=== PATIENT | male | born 1970 | race Two or more races ===

== ENCOUNTER 2024-03-25 16:17 | Emergency (ER) | payer BC, OTHER ==
[~2024-03-25] VITALS: Ht 177.8 cm; Wt 77.1 kg
--- NOTE | 2024-03-25 17:41 | DVH ---
EXAM: XY L KNEE 3V XRAY CLINICAL HISTORY: pain COMPARISON: None TECHNIQUE: XY L KNEE 3V XRAY Findings/Impression: 3 views of the left knee. There is no evidence of an acute fracture, dislocation, blastic, or lytic lesions. No radiopaque foreign bodies. No joint effusion or superficial soft tissue abnormalities.
--- NOTE | 2024-03-25 17:44 | DVH ---
CLINICAL INDICATION: pain TECHNIQUE: 3 views of the right knee XY R KNEE 3V XRAY Comparison: None FINDINGS/IMPRESSION: There is no evidence of acute fracture or dislocation. The joint spaces are preserved. Soft tissues are unremarkable. No significant joint effusion.
[2024-03-25] MEDS ORDERED: NAP500T PO (18:55)
[2024-03-25] MEDS ORDERED: METH4PAK PO (18:55)
--- NOTE | 2024-03-25 18:56 | ED.PDOC ---
Musculoskeletal HPI Comments 53-year-old male complaining of bilateral knee pain x2 weeks. States he has been getting worse over the last few days. Having a hard time walking. No trip no fall. No prior history of knee problems. Has not taken any medications. Nothing makes it better, nothing makes it worse. Chief Complaint: Lower Extremity Time Seen by MD: 16:50 Primary Care Provider: NONE Reviewed Notes: Nurses Notes Allergies: Coded Allergies: Penicillins (Verified Allergy, Unknown, 03/25/24) Information Source: Patient Mode of Arrival: Ambulatory Location: Bilateral Extremity Location: Knee Past Medical History PAST MEDICAL HISTORY: Denies Surgical History: Denies all surgeries Constitutional: denies: chills, diaphoresis, fatigue, fever, malaise, sweats, weakness, others EENTM: denies: blurred vision, double vision, ear bleeding, ear discharge, ear drainage, ear pain, ear ringing, eye pain, eye redness, hearing loss, mouth pain, mouth swelling, nasal discharge, nose bleeding, nose congestion, nose pain, photophobia, tearing, throat pain, throat swelling, voice changes, others Respiratory: denies: cough, hemoptysis, orthopnea, SOB at rest, shortness of breath, SOB with excertion, stridor, wheezing, others Cardiovascular: denies: chest pain, dizzy spells, diaphoresis, Dyspnea on exertion, edema, irregular heart beat, left arm pain, lightheadedness, palpitations, PND, syncope, others Gastrointestinal: denies: abdomen distended, abdominal pain, blood streaked bowels, constipated, diarrhea, dysphagia, difficulty swallowing, hematemesis, melena, nausea, poor appetite, poor fluid intake, rectal bleeding, rectal pain, vomiting, others Genitourinary: denies: burning, dysuria, flank pain, frequency, hematuria, incontinence, penile discharge, penile sore, pain, testicle pain, testicle swelling, urgency, others Neurological: denies: dizziness, fainting, headache, left sided numbness, left sided weakness, numbness, paresthesia, pre-existing deficit, right sided numbness, right sided weakness, seizure, speech problems, tingling, tremors, weakness, others Musculoskeletal: reports: joint pain (Bilateral knees); denies: back pain, gout, joint swelling, muscle pain, muscle stiffness, neck pain, others Integumetry: denies: bruises, change in color, change in hair/nails, dryness, laceration, lesions, lumps, rash, wounds, others Allergic/Immunocompromised: denies: Difficulty Healing, Frequent Infections, Hives, Itching, others Physical Exam General Appearance: No Apparent Distress, Normal HEENT: Normal ENT Inspection, Pharynx Normal, TMs Normal Neck: Full Range of Motion, Non-Tender, Normal, Normal Inspection Respiratory: Chest Non-Tender, Lungs Clear, No Accessory Muscle Use, No Respiratory Distress, Normal Breath Sounds Cardiovascular: No Edema, No JVD, No Murmur, No Gallop, Normal Peripheral Pulses, Regular Rate/Rhythm Breast Exam: Deferred Gastrointestinal: No Organomegaly, Non Tender, No Pulsatile Mass, Normal Bowel Sounds, Soft Genitalia: Deferred Pelvic: Deferred Rectal: Deferred Extremities: No calf tenderness, Normal capillary refill, Normal inspection, Normal range of motion, Non-tender, No pedal edema Musculoskeletal : Location: Bilateral Extremity Location: Knee (Bilateral anterior knees tender to palpation, mild swelling on bilateral knees. No crepitus noted. Negative varus negative valgus negative anterior drawer negative posterior drawer.) Apperance: Normal Neurologic: Alert, helper teacher II-XII nml as Tested, No Motor Deficits, Normal Affect, Normal Mood, No Sensory Deficits Cerebellar Function: Normal Reflexes: Normal Skin: Dry, Normal Color, Warm Lymphatic: No Adenopathy Was a procedure done? Was a procedure done?: No Differential Diagnosis EXT Differential Diagnosis: Compartment Syndrome, Fracture, Sprain, Dislocation X-Ray, Labs, Meds, VS Vital Signs Date Time Temp Pulse Resp B/P (MAP) Pulse Ox O2 Delivery O2 Flow Rate FiO2 03/25/24 16:45 98.1 67 20 142/83 (102) 97 X-Ray, Labs, Meds, VS Comment Imaging: X-rays and CT scans were reviewed and interpreted by this provider, imaging shows no fractures and no pathological disease. Pending radiology review. Laboratory: Labs reviewed and interpreted by this provider. No significant abnormalities noted. Patient has prior medical visits reviewed. Med reconciliation performed Vital signs reviewed Time of 1ST Reevaluation: 18:56 Reevaluation 1ST: Improved Patient Education/Counseling: Diagnosis, Treatment, Need For Follow Up (Patient advised to follow-up in the emergency room in the next 24 to 48 hours if symptoms do not improve. Advised follow-up with PCP in the next 3 to 5 days. Patient verbalized understanding. ) Family Education/Counseling: No Family Present Departure 1 Departure Time of Disposition: 18:52 Impression: Primary Impression: Arthralgia Qualified Codes: M25.561 - Pain in right knee; M25.562 - Pain in left knee Disposition: 01 HOME / SELF CARE / HOMELESS Condition: Fair e-Prescriptions Methylprednisolone (Medrol Dosepak) 4 Mg Rmoan 4 MG PO UD, #21 TAB UAD Prov: DEVENDRA VNAESSA 03/25/24 Naproxen (NAPROSYN TABLET) 500 Mg Tb 1 TAB PO BID, #60 TAB Prov: DEVENDRA VANESSA 03/25/24 Discharged With: Self Critical Care Note Critical Care Time?: No Stability Stability form required: No Heart Score Heart Score: Heart Score Response (Comments) Value History N/A 0 EKG N/A 0 Age N/A 0 Risk Factors N/A 0 Troponin N/A 0 Total 0 DEVENDRA VANESSA Mar 25, 2024 18:56
[2024-03-25 19:30] VITALS: PULSE 128; RESP 16; O2SAT 92
[2024-03-25 19:35] VITALS: BP 144/97; PULSE 128; RESP 20; TEMP 97.9; O2SAT 96
[2024-03-25] MEDS: methylPREDNISolone SOD SUCC 125 MG/2 ML VL IM ONE (19:42)
[2024-03-25] MEDS: KETOROLAC TROMETH 30 MG/ML 1ML VIAL IM ONE (19:42)
== END 2024-03-25 19:50 | disposition home or self-care (01) ==
LOC: ER 16:17
DX: M25.562 Pain in left knee (principal); M25.561 Pain in right knee; Z88.0 Allergy status to penicillin
CPT/HCPCS: 73562; 96372; 99284; J1885; J2919

== ENCOUNTER 2024-04-08 15:58 | Inpatient (IN) | payer BC ==
[~2024-04-08] VITALS: Ht 177.8 cm; Wt 75.7 kg
[~2024-04-08 15:58] MED LIST: METH4PAK PO; NAP500T PO
--- NOTE | 2024-04-08 16:39 | ED.PDOC ---
History of Present Illness HPI Comments Nathan Lindsey is a 53-year-old male patient who presents to ED with chief complaint of generalized weakness associated with loss of appetite, altered gait, nausea, vomiting clear liquid and unintentional weight loss of 3 lb in the past two weeks. Patient also reports presyncopal episode with head trauma two days ago. Denies palpitation, chest pain, dyspnea, diarrhea, constipation, dysphagia, bleeding, dysuria, sick contacts and motor or sensory deficits. Past medical history: Anxiety, recent ER visit due to inflamed knee treated with methylprednisolone and diclofenac. Surgical history: Denies Family history: Unknown (patient is adopted) Social history: Lives in [place] with . Is a current smoker (20 pack- year history of smoking). Denies alcohol and other drug abuse Allergies: Penicillin Home medication: Anxiety medication (does not recall any, has not been taking it for two weeks). Methylprednisolone and diclofenac Chief Complaint: General Weakness Time Seen by MD: 16:05 Primary Care Provider: NONE Allergies: Coded Allergies: Penicillins (Verified Allergy, Unknown, 03/25/24) Home Meds Active Scripts Methylprednisolone (Medrol Dosepak) 4 Mg Roman, 4 MG PO UD, #21 TAB UAD Prov:DEVENDRA VANESSA CANE WEIGHER 03/25/24 Naproxen (NAPROSYN TABLET) 500 Mg Tb, 1 TAB PO BID, #60 TAB Prov:DEVENDRA VANESSAP 03/25/24 Mode of Arrival: Ambulatory Past Medical History PAST MEDICAL HISTORY: Denies Surgical History: Denies all surgeries Physical Exam General Appearance: No Apparent Distress, Thin HEENT: Normal ENT Inspection, Pharynx Normal, TMs Normal Neck: Full Range of Motion, Non-Tender, Normal, Normal Inspection Respiratory: Chest Non-Tender, Lungs Clear, No Accessory Muscle Use, No Respiratory Distress, Normal Breath Sounds Cardiovascular: No Edema, No JVD, No Murmur, No Gallop, Normal Peripheral Pulses, Regular Rate/Rhythm Breast Exam: Deferred Gastrointestinal: No Organomegaly, Non Tender, No Pulsatile Mass, Normal Bowel Sounds, Soft, Other (Abdominal hernia in epigastrium area) Genitalia: Deferred Pelvic: Deferred Rectal: Deferred Extremities: No calf tenderness, Normal capillary refill, Normal inspection, Normal range of motion, Non-tender, No pedal edema Neurologic: Abnormal Gait, Alert, crystalizer operator II-XII nml as Tested, No Motor Deficits, Normal Affect, Normal Mood, No Sensory Deficits Cerebellar Function: Normal Reflexes: Normal Skin: Bruises, Dry, Normal Color, Warm, Wounds Lymphatic: No Adenopathy Was a procedure done? Was a procedure done?: No Differential Dx Considerations may include: Electrolyte disbalance, sepsis, UTI, Lung cancer, gastric cancer, hypothyroidism, congestive heart failure, atrial fibrillation. X-Ray, Labs, Meds, VS Vital Signs Date Time Temp Pulse Resp B/P (MAP) Pulse Ox O2 Delivery O2 Flow Rate FiO2 04/08/24 16:16 97.1 62 18 142/96 (111) 98 Lab Test 04/08/24 16:55 04/08/24 16:13 Range/Units White Blood Count 12.9 H 4.4-10.8 10^3/uL Red Blood Count 4.28 L 4.5-5.90 10^6/uL Hemoglobin 15.0 13.5-17.5 g/dL Hematocrit 43.1 41.0-53.0 % Mean Corpuscular Volume 100.6 H 80.0-100.0 fL Mean Corpuscular Hemoglobin 35.0 H 28.0-32.0 pg Mean Corpuscular Hemoglobin Concent 34.8 32.0-36.0 g/dL Red Cell Distribution Width 14.2 11.8-14.3 % Platelet Count 134 L 140-450 10^3/uL Mean Platelet Volume 9.1 6.9-10.8 fL Neutrophils (%) (Auto) 86.4 H 37.0-80.0 % Lymphocytes (%) (Auto) 6.4 L 10.0-50.0 % Monocytes (%) (Auto) 6.6 0.0-12.0 % Eosinophils (%) (Auto) 0.1 0.0-7.0 % Basophils (%) (Auto) 0.5 0.0-2.0 % Neutrophils # (Auto) 11.1 H 1.6-8.6 10 ^3/uL Lymphocytes # (Auto) 0.8 0.4-5.4 10 ^3/uL Monocytes # (Auto) 0.9 0-1.3 10 ^3/uL Eosinophils # (Auto) 0 0-0.8 10 ^3/uL Basophils # (Auto) 0.1 0-0.2 10 ^3/uL Nucleated Red Blood Cells 0.1 % Prothrombin Time 11.9 H 9.3-11.8 sec Prothrombin Time INR 1.14 0.9-1.15 Activated Partial Thromboplast Time 27.3 24.5-34.5 SEC Sodium Level 132 L 136-145 mmol/L Potassium Level 3.3 L 3.5-5.1 mmol/L Chloride Level 95 L 98-107 mmol/L Carbon Dioxide Level 26 20-31 mmol/L Anion Gap 11 5-15 Blood Urea Nitrogen 9 9-23 mg/dL Creatinine 0.69 L 0.700-1.30 mg/dL Glomerular Filtration Rate Calc 111 >90 mL/min BUN/Creatinine Ratio 13.0 10.0-20.0 Serum Glucose 133 H 74-106 mg/dL Calcium Level 9.2 8.7-10.4 mg/dL Magnesium Level 1.7 1.6-2.6 mg/dL Total Bilirubin 3.3 H 0.2-1.0 mg/dL Aspartate Amino Transferase (AST) 266 H 13-40 U/L Alanine Aminotransferase (ALT) 46 H 7-40 U/L Alkaline Phosphatase 265 H 46-116 U/L Total Protein 7.0 5.7-8.2 g/dL Albumin 4.0 3.2-4.8 g/dL Thyroid Stimulating Hormone (TSH) 5.27 H 0.55-4.78 uIU/mL POC Glucose 139 H 70-106 mg/dl X-Ray, Labs, Meds, VS Comment Obtain laboratory results, presents leukocytosis, mild thrombocytopenia, hyponatremia, hypokalemia, transaminitis. Head CT and chest x-ray within normal limits. EKG pending. Time of 1ST Reevaluation: 17:55 Reevaluation 1ST: Unchanged Patient Education/Counseling: Diagnosis, Treatment, Prognosis Family Education/Counseling: Diagnosis, Treatment, Prognosis Departure 1 Departure Time of Disposition: 17:55 Impression: Primary Impression: Sepsis Additional Impression: Arthralgia Disposition: 30 STILL A PATIENT Condition: Serious Additional Instructions: Reviewed vital signs, laboratory results, head CT and chest x-ray (pending EKG). Patient has probable sepsis, probable site from knee joint versus hepatic. Have ordered blood, urine, and eventual synovial culture. Patient is hemodynamically stable, presents with generalized weakness, unintentional weight loss and loss of appetite, had recent presyncope. Patient has laboratory compatible with sepsis, he will need to be admitted for further workup. Have ordered cultures, initiated IV antibiotic. Critical Care Note Critical Care Time?: No Stability Stability form required: No Heart Score Heart Score: Heart Score Response (Comments) Value History N/A 0 EKG N/A 0 Age N/A 0 Risk Factors N/A 0 Troponin N/A 0 Total 0 JORDYN CHILDERS RESIDENT Apr 08, 2024 16:39
--- NOTE | 2024-04-08 16:58 | DVH ---
EXAM: CT HEAD WITHOUT CONTRAST HISTORY: Head trauma COMPARISON: None TECHNIQUE: Axial images of the head were obtained and reformatted in coronal and sagittal planes. All CT scans at this medical facility are performed using dose modulation techniques as appropriate t o a performed exam including the following: Automated exposure control was utilized; adjustment of th e MA and/or KV according to patient size; and use of iterative reconstruction technique. CT Dose: CTDI volume is 56.9 mGy. Dose-length product is 1121.41 mGy*cm FINDINGS: There is no evidence of acute intracranial hemorrhage, mass, mass effect midline shift. There is no h ydrocephalus or extra-axial fluid collection. Jimenez-white matter differentiation is maintained. There is mucosal thickening in the left maxillary sinus. The remaining visualized paranasal sinuses a nd mastoid air cells are clear. The calvarium is intact. IMPRESSION: 1. No acute intracranial process. HS:Y
--- NOTE | 2024-04-08 17:06 | DVH ---
EXAM: XY CHEST XRAY 1 VIEW TECHNIQUE: Single frontal chest radiograph CLINICAL HISTORY: Unintentional weight loss COMPARISON: None Findings/Impression: Frontal chest radiograph demonstrates no acute osseous or superficial soft tissue abnormalities. The trachea is midline. The cardiac silhouette and mediastinum are within normal limits. No pneumothorax, pleural effusions, or consolidations.
[2024-04-08 17:18] LABS: Eosinophils # (auto) 0 10 ^3/uL (0-0.8); Eosinophils % (auto) 0.1 % (0.0-7.0)
[2024-04-08 17:20] LABS: Basophils # (auto) 0.1 10 ^3/uL (0-0.2); Basophils % (auto) 0.5 % (0.0-2.0); Hematocrit 43.1 % (41.0-53.0); Lymphocytes # (auto) 0.8 10 ^3/uL (0.4-5.4); Lymphocytes % (auto) 6.4 % (10.0-50.0); Mean Corpuscular Hgb Conc. 34.8 g/dL (32.0-36.0); Mean Corpuscular Volume 100.6 fL (80.0-100.0); Monocytes # (auto) 0.9 10 ^3/uL (0-1.3); Monocytes % (auto) 6.6 % (0.0-12.0); Neutrophils # (auto) 11.1 10 ^3/uL (1.6-8.6); Neutrophils % (auto) 86.4 % (37.0-80.0); Nucleated Red Blood Cells % 0.1 %; Platelet Count (auto) 134 10^3/uL (140-450); Red Blood Cells 4.28 10^6/uL (4.5-5.90); Red Cell Distribution Width 14.2 % (11.8-14.3); White Blood Cell 12.9 10^3/uL (4.4-10.8)
[2024-04-08 17:30] LABS: Anion Gap 11 (5-15); Calcium 9.2 mg/dL (8.7-10.4); Carbon Dioxide 26 mmol/L (20-31); Magnesium 1.7 mg/dL (1.6-2.6)
[2024-04-08 17:33] LABS: Alanine Aminotransferase 46 U/L (7-40); Alkaline Phosphatase 265 U/L (46-116); Aspartate Aminotransferase 266 U/L (13-40); Bilirubin, Total 3.3 mg/dL (0.2-1.0); Blood Urea Nitrogen 9 mg/dL (9-23); Chloride 95 mmol/L (98-107); Glucose 133 mg/dL (74-106); INR 1.14 (0.9-1.15); Partial Thromboplastin Time 27.3 SEC (24.5-34.5); Potassium 3.3 mmol/L (3.5-5.1); Prothrombin Time 11.9 sec (9.3-11.8); Sodium 132 mmol/L (136-145)
[2024-04-08] MEDS ORDERED: VANCOMYCIN PER PHARMACY 0 MG IV SCH ×2 (18:15→22:30)
[2024-04-08] MEDS ORDERED: cefTRIAXone 1GM/50ML D5W 50 ML IV ONE (18:15)
--- NOTE | 2024-04-08 18:22 | DVH ---
EXAM: US Abdomen Limited, Right Upper Quadrant CLINICAL INDICATION: Transminitis TECHNIQUE: Real-time ultrasound of the right upper quadrant with image documentation. COMPARISON: None FINDINGS: LIVER: The liver measures up to 20.2 CM. Fatty liver. No intrahepatic bile duct dilation. GALLBLADDER: Gallbladder sludge. Negative Martin's sign was reported by the explosion welder. No gallst ones. COMMON BILE DUCT: Unremarkable as visualized. No stones. No dilation. PANCREAS: Unremarkable as visualized. RIGHT KIDNEY: CBD not visualized. Next time right kidney measures up to 11 .1 cm. No stones. OTHER FINDINGS: . . IMPRESSION: Gallbladder sludge without convincing evidence of acute cholecystitis. HS:Y
[2024-04-08 18:42] LABS: Free T3 2.77 pg/mL (2.3-4.2); Free T4 (Free Thyroxine) 1.02 ng/dL (0.89-1.76)
[2024-04-08] MEDS: POTASSIUM EFFERVESENT TAB 25 MEQ PO ONE (18:51)
[2024-04-08] MEDS: SODIUM CHLORIDE 0.9% 2,250 ML IV ONE (18:59)
[2024-04-08] MEDS: VANCOMYCIN 1.25GM/250ML 250 ML IV SCH (19:32)
[2024-04-08] MEDS: levoFLOXacin 500 MG TAB PO SCH (19:32)
[2024-04-08 19:37] LABS: Lactic Acid w/Reflex 5.1 mmol/L (0.4-2.0)
[2024-04-08] MEDS: ONDANSETRON HCL 4 MG/2 ML VIAL IV ONE (19:57)
[2024-04-08] MEDS: SODIUM CHLORIDE 0.9% 1,000 ML IV ONE ×2 (21:40→22:30)
[2024-04-08] MEDS: MAGNESIUM OXIDE 400 MG TAB PO ONE (22:30)
--- NOTE | 2024-04-08 22:53 | DVHHPRES ---
History of Present Illness Resident Creating Document: SHARYN REN RESIDENT History of Present Illness Patient is a 53-year-old male with no significant past medical history who came in due to generalized weakness. According to the patient, he has been experiencing shaking chills, severe loss of appetite and severe generalized w eakness for the past 2 weeks. Patient notes that he feels like he has no energy left at all and sustained a fall 2 days ago where he hit his head. Patient moved to [place] 8 months ago. He had 3 episodes of vomiting, no blood, vomitus containing food particles. On review of systems patient is complaining of fatigue, nausea, vomiting. And also notes weight loss in the last 4-6 weeks. Per patient, last alcoholic drink was on Saturday04/05/2024. White cell count was noted 12.9, lactic acid 5.1 Past Medical History Denies Past Surgical History Denies Past Social History Smoking, smokes 10 cigarettes per day for the last 30 years Alcohol: Drinks alcohol on the weekends only, 2-3 drinks. Denies using any drugs. Review of Systems Constitutional: Yes: Chills, Weakness, Malaise; No: Fever, Sweats, Other Eyes: No: Pain, Vision change, Conjunctivae inflammation, Eyelid inflammation, Other, Redness ENT: No: Ear pain, Ear discharge, Nose pain, Nose discharge, Nose congestion, Mouth pain, Mouth swelling, Throat pain, Throat swelling, Other Respiratory: No: Cough, Dry, Shortness of breath, SOB with excertion, Wheezing, Hemoptysis, Pleuritic Pain, Sputum, Wheezing, Other Cardiovascular: No: Chest Pain, Palpitations, Orthopnea, Paroxysmal Noc. Dyspnea, Edema, Lt Headedness, Other Gastrointestinal: Nausea, Vomiting; No: Abdominal Pain, Diarrhea, Constipation, Melena, Hematochezia, Other Genitourinary: No Dysuria, No Frequency, No Incontinence, No Hematuria, No Retention, No Other Musculoskeletal: No: other, neck pain, shoulder pain, arm pain, back pain, hand pain, leg pain, foot pain Skin: No: Rash, Lesions, Jaundice, Bruising, Other Neurological: No: Weakness, Numbness, Incoordination, Change in speech, Confusion, Seizures, Other Allergies: Coded Allergies: Penicillins (Verified Allergy, Unknown, 03/25/24) Medications Current Medications Medications Dose Ordered Sig/Riccardo Route Start Time Stop Time Status Last Admin Dose Admin Vancomycin HCl 0 ml @ 0 mls/hr UD IV 04/08/24 18:15 Levofloxacin 500 mg Q24H PO 04/08/24 19:00 04/08/24 19:32 500 MG Vancomycin HCl 250 ml @ 200 mls/hr Q8H IV 04/08/24 19:00 04/08/24 19:32 200 MLS/HR Vancomycin HCl 0 ml @ 0 mls/hr UD IV 04/08/24 22:30 UNV Piperacillin Sod/ Tazobactam Sod 100 ml @ 25 mls/hr Q8HR IV 04/09/24 06:00 UNV Exam Vital Signs Vital Signs Date Time Temp Pulse Resp B/P (MAP) Pulse Ox O2 Delivery O2 Flow Rate FiO2 04/08/24 21:59 116 04/08/24 20:03 18 150/100 (117) 97 04/08/24 18:48 97.4 97.4 04/08/24 18:48 Room Air General Appearance: Alert, Oriented X3, Cooperative, moderate distress HEENT: Atraumatic, PERRLA, EOMI Respiratory: Clear to auscultation, Normal air movement Cardiovascular: Regular rate, Normal S1, Normal S2 Abdominal: Normal bowel sounds (Abdominal tenderness to palpation) Extremities: No clubbing, No cyanosis, No edema Skin: No rashes, No breakdown Neuro: Normal speech, Other (Resting tremors noted in bilateral upper extremities) Psych/Mental Status: Mental status NL, Mood NL Labs/Xrays Labs Test 04/08/24 20:52 04/08/24 16:55 04/08/24 16:13 Range/Units Lactic Acid Level 5.9 *H 0.4-2.0 mmol/L White Blood Count 12.9 H 4.4-10.8 10^3/uL Red Blood Count 4.28 L 4.5-5.90 10^6/uL Hemoglobin 15.0 13.5-17.5 g/dL Hematocrit 43.1 41.0-53.0 % Mean Corpuscular Volume 100.6 H 80.0-100.0 fL Mean Corpuscular Hemoglobin 35.0 H 28.0-32.0 pg Mean Corpuscular Hemoglobin Concent 34.8 32.0-36.0 g/dL Red Cell Distribution Width 14.2 11.8-14.3 % Platelet Count 134 L 140-450 10^3/uL Mean Platelet Volume 9.1 6.9-10.8 fL Neutrophils (%) (Auto) 86.4 H 37.0-80.0 % Lymphocytes (%) (Auto) 6.4 L 10.0-50.0 % Monocytes (%) (Auto) 6.6 0.0-12.0 % Eosinophils (%) (Auto) 0.1 0.0-7.0 % Basophils (%) (Auto) 0.5 0.0-2.0 % Neutrophils # (Auto) 11.1 H 1.6-8.6 10 ^3/uL Lymphocytes # (Auto) 0.8 0.4-5.4 10 ^3/uL Monocytes # (Auto) 0.9 0-1.3 10 ^3/uL Eosinophils # (Auto) 0 0-0.8 10 ^3/uL Basophils # (Auto) 0.1 0-0.2 10 ^3/uL Nucleated Red Blood Cells 0.1 % Prothrombin Time 11.9 H 9.3-11.8 sec Prothrombin Time INR 1.14 0.9-1.15 Activated Partial Thromboplast Time 27.3 24.5-34.5 SEC Sodium Level 132 L 136-145 mmol/L Potassium Level 3.3 L 3.5-5.1 mmol/L Chloride Level 95 L 98-107 mmol/L Carbon Dioxide Level 26 20-31 mmol/L Anion Gap 11 5-15 Blood Urea Nitrogen 9 9-23 mg/dL Creatinine 0.69 L 0.700-1.30 mg/dL Glomerular Filtration Rate Calc 111 >90 mL/min BUN/Creatinine Ratio 13.0 10.0-20.0 Serum Glucose 133 H 74-106 mg/dL Calcium Level 9.2 8.7-10.4 mg/dL Magnesium Level 1.7 1.6-2.6 mg/dL Total Bilirubin 3.3 H 0.2-1.0 mg/dL Aspartate Amino Transferase (AST) 266 H 13-40 U/L Alanine Aminotransferase (ALT) 46 H 7-40 U/L Alkaline Phosphatase 265 H 46-116 U/L Total Protein 7.0 5.7-8.2 g/dL Albumin 4.0 3.2-4.8 g/dL Thyroid Stimulating Hormone (TSH) 5.27 H 0.55-4.78 uIU/mL Free Thyroxine (T4) Calculated 1.02 0.89-1.76 ng/dL Free Triiodothyronine (T3) pg/mL 2.77 2.3-4.2 pg/mL POC Glucose 139 H 70-106 mg/dl Assessment/Plan Assessment/Plan Generalized weakness s/p mechanical fall 2 days ago Lactic acidosis possible alcohol withdrawal? CIWA 11 - CXR: Frontal chest radiograph demonstrates no acute osseous or superficial soft tissue abnormalities. - Head CT: No acute intracranial process. - CT chest/abdomen/pelvis w oral and IV contrast: Gallbladder sludge without convincing evidence of acute cholecystitis. Moderate hepatomegaly with diffuse fatty infiltration of the liver. Moderate distention of the gallbladder without evidence of acute cholecystitis. Mild centrilobular emphysematous changes in the lungs with subtle fibrotic bands in the inferior lingular segment and right lower lobe. No acute infiltrates or effusions. Scattered diverticulosis of the sigmoid colon without evidence of diverticulit is. Omental fat-containing bilateral inguinal hernia, left more than right. Borderline prostatomegaly with parenchymal calcifications. Subtle atherosclerotic calcification of the abdominal aorta and common iliac arteries, with normal contrast opacification and no aneurysm or dissection. Degenerative disc disease at L5-S1 with vacuum disc phenomenon and moderate bilateral foraminal narrowing. - ordered CEA, CA19-9, lipase - IV vancomycin, IV zosyn - IV NS at 100cc/hr Transaminitis Hyperbilirubinemia - CT AP: Moderate hepatomegaly with diffuse fatty infiltration. - monitor Hypertensive urgency - IV labetalol 10mg once Hypokalemia - repleted Goals of care: Full code, discussed for >16 minutes on 04/08/2024 Plan discussed with patient Plan discussed with Dr. Feliciano Plan discussed with: Patient, Other (RN) My Orders Orders - SHARYN REN RESIDENT Procedure Category Date Status Time Admit ADMIT 04/08/24 Transmitted 22:26 Notify Of Changes JOSE 04/08/24 In Process From [facility] 22:26 Vancomycin Per PHA 04/08/24 Pending Pharmacy 22:30 Piperacillin-Tazob PHA 04/09/24 Logged 3.375gm (Zosyn 3.375g 06:00 Sodium Chloride 0.9% PHA 04/08/24 In Process 22:30 Complete Blood Count LAB 04/09/24 Verified 02:00 Comprehensive LAB 04/09/24 Verified Metabolic Panel 02:00 Urinalysis LAB 04/08/24 Logged 22:26 Carcinoembryonic LAB 04/08/24 Logged Antigen 22:26 Carbohydrate Antigen LAB 04/08/24 Logged 19-9 Lipase LAB 04/08/24 In Process 22:26 Ct Chest/Ab/Pl W Con- CT 04/08/24 Logged Iv Only 22:26 Date of Service: Apr 08, 2024 Billing Provider: HERMINIA FELICIANO MD Common Visit Codes: [id number] INP/OBS CARE (HIGH) SHARYN REN RESIDENT Apr 08, 2024 22:53 HERMINIA FELICIANO MD Apr 09, 2024 11:41
[2024-04-08] MEDS: GASTROGRAFIN 30 ML SOL ONE (23:12)
[2024-04-08] MEDS: LABETALOL HCL 20 MG/4 ML VL IV ONE (23:15)
[2024-04-08] MEDS: METOCLOPRAMIDE HCL 10 MG TAB PO ONE (23:16)
[2024-04-08] MEDS: METOCLOPRAMIDE HCL 5MG/ml INJ 2ml VIAL IV ONE (23:30)
[2024-04-08 23:45] VITALS: PULSE 113; RESP 19; O2SAT 98
[2024-04-09] MEDS: IOHEXOL 300 MG/ML 100ML BOTTLE IJ ONE (01:32)
--- NOTE | 2024-04-09 03:42 | DVH ---
Examination: CAPIV CLINICAL INDICATION: abdominal pain, weakness, weight loss. COMPARISON: None. CONTRAST USED: Intravenous. TECHNIQUE: Post-contrast CT study of the chest, abdomen, and pelvis was performed with 5 mm thin sli chase. Multiplanar reconstructions were obtained. The CT scan was performed using ALARA principles (A s Low As Reasonably Achievable). FINDINGS: CT Chest: Thyroid Gland and Lower Neck: Appears unremarkable. Cardiac and Great Vessels: Normal cardiac size. No pericardial effusion. Normal contrast opacification of the thoracic aorta. No aneurysmal dilatation or dissection. Lungs and Pleura: Mild centrilobular emphysematous changes in the lung parenchyma. Subtle linear fibrotic band in the inferior lingular segment and posterobasal segment of the right lo wer lobe. No acute infiltrates or effusion. No lung nodules, pleural effusion, or pneumothorax. Mediastinum and Great Vessels: Trachea and mainstem bronchi appear normal. No significant mediastinal lymphadenopathy. No masses or vascular abnormalities. Chest Wall and Osseous Structures: No acute abnormalities. Degenerative changes in the thoracic spine, acromioclavicular, and glenohumeral joints. No focal osseous lesions. CT Abdomen: Liver: Moderate hepatomegaly with diffuse fatty infiltration. Gallbladder and Biliary System: Moderate distention of the gallbladder. No radiopaque calculus or gallbladder wall thickening to suggest cholecystitis. Common bile duct is not dilated. Pancreas: Appears unremarkable. Spleen: Normal in size and echotexture. No focal lesions. Adrenal Glands and Retroperitoneum: Both adrenal glands are normal in size and morphology. No significant retroperitoneal lymphadenopathy. Kidneys and Urinary System: No renal calculi or hydronephrosis. Bowel Loops: Contrast-filled small and large bowel loops are identified. Scattered diverticulosis of the sigmoid colon without evidence of diverticulitis. No bowel obstruction, ascites, or abnormal masses. Vessels: Subtle atherosclerotic calcification of the abdominal aorta and common iliac arteries. Normal contrast opacification of the abdominal aorta and visceral arteries. No evidence of aneurysmal dilatation or dissection. CT Pelvis: Appendix: Appears unremarkable. Colon: No significant abnormalities. Urinary Bladder: Appears unremarkable. Prostate and Seminal Vesicles: Borderline prostatomegaly with foci of parenchymal calcifications. Seminal vesicles appear unremarkable. Hernias: Omental fat-containing bilateral inguinal hernia, left more than right. Lymph Nodes and Soft Tissues: No significant pelvic lymphadenopathy. No abnormal fluid collection. Skeletal System: Degenerative reduction in disc space at L5-S1 with vacuum disc phenomenon and disc osteophyte complex bulge. Moderate narrowing of the bilateral neural foramina. IMPRESSION: 1. Moderate hepatomegaly with diffuse fatty infiltration of the liver. 2. Moderate distention of the gallbladder without evidence of acute cholecystitis. 3. Mild centrilobular emphysematous changes in the lungs with subtle fibrotic bands in the inferior lingular segment and right lower lobe. No acute infiltrates or effusions. 4. Scattered diverticulosis of the sigmoid colon without evidence of diverticulitis. 5. Omental fat-containing bilateral inguinal hernia, left more than right. 6. Borderline prostatomegaly with parenchymal calcifications. 7. Subtle atherosclerotic calcification of the abdominal aorta and common iliac arteries, with [place] l contrast opacification and no aneurysm or dissection. 8. Degenerative disc disease at L5-S1 with vacuum disc phenomenon and moderate bilateral foraminal n arrowing. Electronically Signed 04/09/2024 03:41 [place] Gage
[2024-04-09] MEDS: PIPERACILLIN-TAZOB 3.375GM 100 ML IV SCH (06:00)
--- NOTE | 2024-04-09 06:42 | ECG ---
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
[2024-04-09 07:14] LABS: Basophils # (auto) 0 10 ^3/uL (0-0.2); Eosinophils # (auto) 0 10 ^3/uL (0-0.8); Monocytes # (auto) 0.9 10 ^3/uL (0-1.3); Neutrophils # (auto) 11.8 10 ^3/uL (1.6-8.6); Platelet Count (auto) 86 10^3/uL (140-450); Red Blood Cells 3.78 10^6/uL (4.5-5.90)
[2024-04-09 07:16] LABS: Basophils % (auto) 0.4 % (0.0-2.0); Hematocrit 38.6 % (41.0-53.0); Hemoglobin 13.1 g/dL (13.5-17.5); Lymphocytes # (auto) 0.8 10 ^3/uL (0.4-5.4); Lymphocytes % (auto) 5.7 % (10.0-50.0); Mean Corpuscular Hemoglobin 34.7 pg (28.0-32.0); Mean Corpuscular Volume 101.9 fL (80.0-100.0); Monocytes % (auto) 6.4 % (0.0-12.0); Neutrophils % (auto) 87.5 % (37.0-80.0); White Blood Cell 13.5 10^3/uL (4.4-10.8)
[2024-04-09 07:32] LABS: Alanine Aminotransferase 38 U/L (7-40); Albumin 3.8 g/dL (3.2-4.8); Alkaline Phosphatase 229 U/L (46-116); Anion Gap 11 (5-15); Aspartate Aminotransferase 193 U/L (13-40); BUN/Creatinine Ratio 13.1 (10.0-20.0); Bilirubin, Total 4.3 mg/dL (0.2-1.0); Blood Urea Nitrogen 8 mg/dL (9-23); Calcium 8.9 mg/dL (8.7-10.4); Carbon Dioxide 26 mmol/L (20-31); Chloride 94 mmol/L (98-107); Glucose 114 mg/dL (74-106); Potassium 3.7 mmol/L (3.5-5.1); Sodium 131 mmol/L (136-145); Total Protein 6.8 g/dL (5.7-8.2)
[2024-04-09] MEDS ORDERED: cefTRIAXone 1GM/50ML D5W 50 ML IV SCH (09:00)
[2024-04-09] MEDS ORDERED: LORazepam MDV 2MG/ML 50 MG in SODIUM CHL 0.9% 25 ML IV SCH (09:00)
[2024-04-09] MEDS ORDERED: LORazepam 2MG/ML-1ML VIAL IV PRN (09:15)
[2024-04-09] MEDS: LABETALOL HCL 20 MG/4 ML VL IV ONE ×2 (09:30→10:38)
[2024-04-09] MEDS: ONDANSETRON HCL 4 MG/2 ML VIAL IV ONE (09:41)
[2024-04-09] MEDS: chlordiazePOXIDE HCL 25 MG CAP PO SCH (09:48)
[2024-04-09 09:49] LABS: Hepatitis A Ab IgM Negative; Hepatitis B Core IgM Negative (Negative); Hepatitis B Surface Antigen Negative (Negative); Hepatitis C Antibody Negative (Negative)
[2024-04-09] MEDS: LORazepam 2MG/ML-1ML VIAL IM ONE (09:53)
[2024-04-09] MEDS: LABETALOL HCL 5 MG/ML 4ML SYRINGE IV ONE (10:23)
[2024-04-09] MEDS: LORazepam 2MG/ML-1ML VIAL IV PRN (17:41)
[2024-04-09] MEDS ORDERED: FOLIC ACID 1 MG, MULTIPLE VITAMIN 10 ML, MAGNESIUM SULF SDV 50% 8 MEQ, THIAMINE INJ 100... INJ SCH (18:00)
[2024-04-09 19:30] VITALS: PULSE 117; RESP 19; O2SAT 95
--- NOTE | 2024-04-09 19:52 | DVHPNRES ---
Progress Note Date Seen: Apr 09, 2024 Resident Creating Document: BERTRAM CONTEH RESIDENT Has the PT tested + for MRSA If YES, has PT been informed?: No Medical Necessity Reason Pt with a Central, PICC or Fol: No Medical Necessity Reason Alcohol withdrawal Dizziness Anemia Subjective Review of Systems This is a 53-year-old male with history of alcohol abuse presented to the ED with a chief complaints of generalized weakness. According to the patient, he has been experiencing shaking chills, severe loss of appetite and severe generalized weakness for the past 2 weeks. Patient notes that he feels like he has no energy left at all and sustained a fall 2 days ago where he hit his head. He had 3 episodes of vomiting, no blood, mainly vomitus containing food particles. According the patient, he has been binge drinking for the past two weeks. Patient denied any recent travel out of the country, he is in monogamous relationship with his and he lives at home. Patient moved to [place] 8 months ago. And also notes weight loss in the last 4-6 weeks. White cell count was noted 12.9, lactic acid 5.1 AST level was 266, ALT was 46. At the time of my visit, patient passed a black tarry stool but he didn not mention any evidence of hematemesis. He was very unsteady but alert and oriented. Chest x-ray, CT head were grossly unremarkable ultrasound of the gallbladder revealed gallbladder sludge without convincing evidence of acute cholecystitis. CT chest/abdomen/pelvis showed Moderate hepatomegaly with diffuse fatty infiltration of the liver.Moderate distention of the gallbladder without evidence of acute cholecystitis. Mild centrilobular emphysematous changes in the lungs with subtle fibrotic bands in the inferior lingular segment and right lower lobe.No acute infiltrates or effusions Scattered diverticulosis of the sigmoid colon without evidence of diverticulitis. Omental fat-containing bilateral inguinal hernia, left more than right Borderline prostatomegaly with parenchymal calcifications.Subtle atherosclerotic calcification of the abdominal aorta and common iliac arteries, with normal contrast opacification and no aneurysm or dissection. ROS Constitutional: Yes: Chills, Weakness, Malaise, fatigues and weight lost, Generalized tremors; No: Fever, Sweats, Eyes: No: Pain, Vision change, Conjunctivae inflammation, Eyelid inflammation, Other, Redness ENT: No: Ear pain, Ear discharge, Nose pain, Nose discharge, Nose congestion, Mouth pain, Mouth swelling, Throat pain, Throat swelling, Other Respiratory: No: Cough, Dry, Shortness of breath, SOB with excertion, Wheezing, Hemoptysis, Pleuritic Pain, Sputum, Wheezing, Other Cardiovascular: No: Chest Pain, Palpitations, Orthopnea, Paroxysmal Noc. Dyspnea, Edema, Lt Headedness, Other Gastrointestinal: Nausea, Vomiting; No: Abdominal Pain, Diarrhea, Constipation, Melena, Hematochezia, Other Genitourinary: No Dysuria, No Frequency, No Incontinence, No Hematuria, No Retention, No Other Musculoskeletal: No: other, neck pain, shoulder pain, arm pain, back pain, hand pain, leg pain, foot pain Skin: No: Rash, Lesions, Jaundice, Bruising, Other Neurological: No: Weakness, Numbness, Incoordination, Change in speech, Confusion, Seizures, Other Objective vital signs Vital Sign Date Time Temp Pulse Resp B/P (MAP) Pulse Ox O2 Delivery O2 Flow Rate FiO2 04/09/24 18:14 130 20 144/108 (120) 94 04/09/24 15:57 97.9 97.9 04/08/24 23:45 Room Air* 0 21 Total Intake and Output 04/08/24 04/08/24 04/09/24 15:00 23:00 07:00 Intake Total 2500 ml Balance 2500 ml medications Current Medications Medications Dose Ordered Sig/Riccardo Route Start Time Stop Time Status Last Admin Dose Admin Vancomycin HCl 0 ml @ 0 mls/hr UD IV 04/08/24 18:15 Chlordiazepoxide HCl 10 mg Q6HPRN PRN PO 04/09/24 09:15 Labetalol HCl 5 mg Q2HPRN PRN IV 04/09/24 09:30 Chlordiazepoxide HCl 50 mg Q8H PO 04/09/24 09:30 04/10/24 01:31 04/09/24 17:16 50 MG Chlordiazepoxide HCl 50 mg Q12HR PO 04/10/24 10:00 04/10/24 22:01 Chlordiazepoxide HCl 25 mg Q12HR PO 04/11/24 10:00 04/11/24 22:01 Chlordiazepoxide HCl 25 mg QAM PO 04/12/24 07:00 04/12/24 07:01 Lorazepam 1 mg Q4HP PRN IV 04/09/24 09:30 04/09/24 17:41 1 MG Folic Acid 1 mg/ Magnesium Sulfate 8 meq/ Multivitamins 10 ml/Thiamine HCl 100 mg/Sodium Chloride 1,013.2 ml @ 126.247 mls/hr DAILY@1800 INJ 04/09/24 18:00 Examination General Appearance: Alert, Oriented X3, Cooperative, moderate distress, Generalized tremors, unsteady gaits HEENT: Atraumatic, PERRLA, EOMI Respiratory: Clear to auscultation, Normal air movement Cardiovascular: Regular rate, Normal S1, Normal S2 Abdominal: able to swallow, Normal bowel sounds (Abdominal tenderness to palpation) Extremities: No clubbing, No cyanosis, No edema Skin: No rashes, No breakdown Neuro: Normal speech, Other (Resting tremors noted in bilateral upper extremities) Psych/Mental Status: Mental status NL, Mood NL laboratory and microbiology Laboratory Tests 04/09/24 06:06 Test 04/09/24 06:06 Range/Units Serum Glucose 114 H 74-106 mg/dL Microbiology Date/Time Source Procedure Growth Status 04/08/24 18:28 Blood Blood Culture - Preliminary NO GROWTH AFTER 24 HOURS OF INCUBATION. Resulted Problem List/Assessment/Plan Problem List/Assessment/Plan Assessment Alcohol withdrawal, CIWA score 11 Acute blood Anemia rule out GI Bleed Melena Macrocytic anemia Generalized weakness s/p mechanical fall 2 days ago Likely alcoholic Lactic acidosis Malnutrition Thrombocytopenia Hyponatremia Transaminitis Hyperbilirubinemia Hypertensive urgency Hypokalemia hepatomegaly with diffuse fatty infiltration of the liver. Scattered diverticulosis without evidence of diverticulitis. Omental fat-containing bilateral inguinal hernia, left more than right. Plan Continue Banana bag ( NS with multivatamins) and reassess in the AM Ativan 1mg q4hrs Chlordiazepoxide ( librium) protocol IV labetalol 5mg q2hrs prn Clonidine 0.1 bid prn Monitor and replace electrolytes Monitor stool and hgb, may consider GI consult if hgb continues to drop Code status : full code Goal of care discussed for more than 45 minute Case and plan discussed with Dr. Jackson Plan discussed with: Patient My Orders My Orders Orders - BERTRAM CONTEH RESIDENT Procedure Category Date Status Time Etoh Withdrawal JOSE 04/09/24 In Process Assessment 09:13 Etoh Withdrawal JOSE 04/09/24 In Process Assessment 09:13 Chlordiazepoxide Hcl PHA 04/09/24 In Process Capsule (Librium Ca 09:15 Labetalol Hcl PHA 04/09/24 In Process (Labetalol Hcl) 09:30 Chlordiazepoxide Hcl PHA 04/09/24 In Process Capsule (Librium Ca 09:30 Chlordiazepoxide Hcl PHA 04/10/24 In Process Capsule (Librium Ca 10:00 Chlordiazepoxide Hcl PHA 04/11/24 In Process Capsule (Librium Ca 10:00 Chlordiazepoxide Hcl PHA 04/12/24 In Process Capsule (Librium Ca 07:00 Lorazepam 2mg/Ml Inj PHA 04/09/24 In Process (Ativan Inj) 09:30 Urinalysis LAB 04/09/24 Logged 10:41 Drug Screen LAB 04/09/24 Logged 10:41 Folic Acid... PHA 04/09/24 In Process 18:00 Date of Service: Apr 09, 2024 Billing Provider: BRIEN JACKSON MD Common Visit Codes: [id number] INP/OBS CARE(HIGH) BERTRAM CONTEH RESIDENT Apr 09, 2024 19:52 BRIEN JACKSON MD Apr 09, 2024 21:25
[2024-04-09] MEDS: FOLIC ACID 1 MG, MAGNESIUM SULF SDV 50% 8 MEQ, MULTIPLE VITAMIN 10 ML, THIAMINE INJ 100... INJ SCH (20:02)
[2024-04-09 21:17] LABS: Basophils # (auto) 0.1 10 ^3/uL (0-0.2); Eosinophils # (auto) 0 10 ^3/uL (0-0.8); Eosinophils % (auto) 0.1 % (0.0-7.0); Hematocrit 39.9 % (41.0-53.0)
[2024-04-09 21:19] LABS: Basophils % (auto) 0.5 % (0.0-2.0); Hemoglobin 13.6 g/dL (13.5-17.5); Lymphocytes # (auto) 1.3 10 ^3/uL (0.4-5.4); Lymphocytes % (auto) 10.1 % (10.0-50.0); Mean Corpuscular Hemoglobin 34.5 pg (28.0-32.0); Mean Corpuscular Volume 101.6 fL (80.0-100.0); Monocytes # (auto) 1.1 10 ^3/uL (0-1.3); Monocytes % (auto) 8.9 % (0.0-12.0); Neutrophils % (auto) 80.4 % (37.0-80.0); Nucleated Red Blood Cells % 0.2 %; Platelet Count (auto) 88 10^3/uL (140-450); Red Blood Cells 3.93 10^6/uL (4.5-5.90); Red Cell Distribution Width 13.6 % (11.8-14.3); White Blood Cell 12.4 10^3/uL (4.4-10.8)
[2024-04-09 21:36] LABS: Alanine Aminotransferase 33 U/L (7-40); Albumin 3.4 g/dL (3.2-4.8); Anion Gap 11 (5-15); BUN/Creatinine Ratio 17.2 (10.0-20.0); Blood Urea Nitrogen 11 mg/dL (9-23); Calcium 8.7 mg/dL (8.7-10.4); Carbon Dioxide 25 mmol/L (20-31); Lipase 43 U/L (12-53)
[2024-04-09 21:37] LABS: Total Protein 6.2 g/dL (5.7-8.2)
[2024-04-09 21:42] LABS: Alkaline Phosphatase 201 U/L (46-116); Aspartate Aminotransferase 165 U/L (13-40); Bilirubin, Total 3.5 mg/dL (0.2-1.0); Chloride 98 mmol/L (98-107); Glucose 110 mg/dL (74-106); Potassium 2.9 mmol/L (3.5-5.1); Sodium 134 mmol/L (136-145)
[2024-04-10 02:16] LABS: Urine Bacteria None Seen /hpf (None Seen)
[2024-04-10 02:24] LABS: Urine Blood TRACE /uL (Negative); Urine Clarity Clear (Clear); Urine Color Dark-Yellow (Yellow); Urine Protein, UAD 1+ (Negative); Urine Squamous Epithelial Cell None Seen /hpf (<5); Urine Urobilinogen 8 mg/dL (Negative); Urine WBC 1 /hpf (0 - 3); Urine pH 6.5 (5.0-9.0)
[2024-04-10 02:41] LABS: Benzodiazephine Screen, Urine Pos (NEGATIVE); Opiate Scree,Urine Neg (NEGATIVE); Phencyclidine Screen, Urine Neg (NEGATIVE)
[2024-04-10 02:42] LABS: Cannabinoid Screen, Urine Neg (NEGATIVE)
[2024-04-10 03:41] LABS: Amphetamine Screen, Urine Neg (NEGATIVE); Barbiturate Scree,Urine Neg (NEGATIVE); Cocaine Screen, Urine Neg (NEGATIVE)
[2024-04-10] MEDS: POTASSIUM CHL 20MEQ/100ML 100 ML IV SCH (03:57)
[2024-04-10] MEDS: POTASSIUM EFFERVESENT TAB 25 MEQ PO ONE (04:21)
--- NOTE | 2024-04-10 07:02 | ECG ---
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
--- NOTE | 2024-04-10 07:20 | DVHPNRES ---
Progress Note Date Seen: Apr 10, 2024 Resident Creating Document: SOY DAS Has the PT tested + for MRSA If YES, has PT been informed?: No Medical Necessity Reason Pt with a Central, PICC or Fol: No Medical Necessity Reason Alcohol withdrawal CIWA score went up to 19 Currently on CIWA protocol, Librium protocol Subjective Review of Systems This is a 53-year-old male with history of alcohol abuse presented to the ED with a chief complaints of generalized weakness. According to the patient, he has been experiencing shaking chills, severe loss of appetite and severe generalized weakness for the past 2 weeks. Patient notes that he feels like he has no energy left at all and sustained a fall 2 days ago where he hit his head. He had 3 episodes of vomiting, no blood, mainly vomitus containing food particles. According the patient, he has been binge drinking for the past two weeks. Patient denied any recent travel out of the country, he is in monogamous relationship with his and he lives at home. Patient moved to [place] 8 months ago. And also notes weight loss in the last 4-6 weeks. White cell count was noted 12.9, lactic acid 5.1 AST level was 266, ALT was 46. At the time of my visit, patient passed a black tarry stool but he didn not mention any evidence of hematemesis. He was very unsteady but alert and oriented. Chest x-ray, CT head were grossly unremarkable ultrasound of the gallbladder revealed gallbladder sludge without convincing evidence of acute cholecystitis. CT chest/abdomen/pelvis showed Moderate hepatomegaly with diffuse fatty infiltration of the liver.Moderate distention of the gallbladder without evidence of acute cholecystitis. Mild centrilobular emphysematous changes in the lungs with subtle fibrotic bands in the inferior lingular segment and right lower lobe.No acute infiltrates or effusions Scattered diverticulosis of the sigmoid colon without evidence of diverticulitis. Omental fat-containing bilateral inguinal hernia, left more than right Borderline prostatomegaly with parenchymal calcifications.Subtle atherosclerotic calcification of the abdominal aorta and common iliac arteries, with normal contrast opacification and no aneurysm or dissection. PN: 04/10/2024 Patient is seen and examined this morning at bedside. He is alert oriented however his in [place] where he is hallucinating imagining family members with him or girlfriend and by the bedside. He has been question he is able to respond he is able to answer some questions but every now and then patient did into hallucination imagining what is not present. Overnight patient was noted to have tachycardic a low-potassium EKG was done which revealed sinus tachycardia on the EKG reading is showed QT prolongation of 527 however with irais calculation was 470. He is toxicology reports came back and patient was positive for fentanyl. Blood pressure is well under control at this moment and monitor. Patient's symptoms are likely due to alcohol withdrawal. Patient is also noted to have melena stool. Tumor marker CA19-9:126 H (0-35). GI is on the case and are considering MRCP. Chemistry improved today Objective vital signs Vital Sign Date Time Temp Pulse Resp B/P (MAP) Pulse Ox O2 Delivery O2 Flow Rate FiO2 04/10/24 06:44 139 22 115/82 (93) 95 04/09/24 19:32 Room Air* 0 21 04/09/24 19:00 98.9 98.9 Total Intake and Output 04/09/24 04/09/24 04/10/24 15:00 23:00 07:00 Intake Total 578.741 ml Output Total 300 ml Balance 278.741 ml medications Current Medications Medications Dose Ordered Sig/Riccardo Route Start Time Stop Time Status Last Admin Dose Admin Chlordiazepoxide HCl 10 mg Q6HPRN PRN PO 04/09/24 09:15 Labetalol HCl 5 mg Q2HPRN PRN IV 04/09/24 09:30 Chlordiazepoxide HCl 50 mg Q12HR PO 04/10/24 10:00 04/10/24 22:01 Chlordiazepoxide HCl 25 mg Q12HR PO 04/11/24 10:00 04/11/24 22:01 Chlordiazepoxide HCl 25 mg QAM PO 04/12/24 07:00 04/12/24 07:01 Lorazepam 1 mg Q4HP PRN IV 04/09/24 09:30 04/10/24 02:59 1 MG Folic Acid 1 mg/ Magnesium Sulfate 8 meq/ Multivitamins 10 ml/Thiamine HCl 100 mg/Sodium Chloride 1,013.2 ml @ 126.247 mls/hr DAILY@1800 INJ 04/09/24 18:00 04/09/24 20:02 126.247 MLS/HR Potassium Chloride 100 ml @ 50 mls/hr Q2H IV 04/10/24 03:45 04/10/24 07:44 04/10/24 05:53 50 MLS/HR Examination General Appearance: Alert, Oriented X3, Cooperative, moderate distress, G eneralized tremors ( improving),hallucinating HEENT: Atraumatic, PERRLA, EOMI Respiratory: Clear to auscultation, Normal air movement Cardiovascular: Regular rate, Normal S1, Normal S2 Abdominal: able to swallow, Normal bowel sounds (Abdominal tenderness to palpation) Extremities: No clubbing, No cyanosis, No edema Skin: No rashes, No breakdown, spot bleeding noted on his forehead and arm Neuro: Normal speech, Other (Resting tremors noted in bilateral upper extremities) Psych/Mental Status: Mental status NL, Mood NL laboratory and microbiology laboratory and microbiology Laboratory Tests 04/09/24 20:40 Test 04/09/24 20:40 Range/Units Serum Glucose 110 H 74-106 mg/dL Microbiology Date/Time Source Procedure Growth Status 04/08/24 18:28 Blood Blood Culture - Preliminary NO GROWTH AFTER 24 HOURS OF INCUBATION. Resulted Problem List/Assessment/Plan Problem List/Assessment/Plan Assessment Alcohol withdrawal, CIWA score 19 ( worsened today) Acute blood Anemia rule out GI Bleed Melena Macrocytic anemia Generalized weakness s/p mechanical fall 2 days ago Likely alcoholic Lactic acidosis Malnutrition Thrombocytopenia Hyponatremia Transaminitis Hyperbilirubinemia Hypertensive urgency Hypokalemia hepatomegaly with diffuse fatty infiltration of the liver. Scattered diverticulosis without evidence of diverticulitis. Omental fat-containing bilateral inguinal hernia, left more than right. Hypokalemia hyper ammonia Dehydration Depression Fentanyl abuse (UDS positive) Plan Continue Banana bag ( NS with multivitamins) daily Ativan 1mg q4hrs Chlordiazepoxide (librium) protocol IV labetalol 5mg q2hrs prn Clonidine 0.1 bid prn Monitor and replace electrolytes Monitor stool and hgb stable Maintenance fluid GI following Code status: full code Goal of care discussed for more than 35 minute Case and plan discussed with Dr. Horton Plan discussed with: Patient My Orders My Orders Orders - BERTRAM CONTEH RESIDENT Procedure Category Date Status Time Etoh Withdrawal JOSE 04/09/24 In Process Assessment 09:13 Etoh Withdrawal JOSE 04/09/24 In Process Assessment 09:13 Chlordiazepoxide Hcl PHA 04/09/24 In Process Capsule (Librium Ca 09:15 Labetalol Hcl PHA 04/09/24 In Process (Labetalol Hcl) 09:30 Chlordiazepoxide Hcl PHA 04/10/24 In Process Capsule (Librium Ca 10:00 Chlordiazepoxide Hcl PHA 04/11/24 In Process Capsule (Librium Ca 10:00 Chlordiazepoxide Hcl PHA 04/12/24 In Process Capsule (Librium Ca 07:00 Lorazepam 2mg/Ml Inj PHA 04/09/24 In Process (Ativan Inj) 09:30 Folic Acid... PHA 04/09/24 In Process 18:00 Complete Blood Count LAB 04/10/24 Logged 04:00 Comprehensive LAB 04/10/24 Logged Metabolic Panel 04:00 Date of Service: Apr 10, 2024 Billing Provider: DEMI HORTON MD Common Visit Codes: [id number] INP/OBS CARE(HIGH) BERTRAM CONTEH RESIDENT Apr 10, 2024 07:20 DEMI HORTON MD Apr 10, 2024 18:23
[2024-04-10 07:24] LABS: Basophils # (auto) 0 10 ^3/uL (0-0.2); Basophils % (auto) 0.3 % (0.0-2.0); Eosinophils # (auto) 0.1 10 ^3/uL (0-0.8); Eosinophils % (auto) 0.4 % (0.0-7.0); Hematocrit 38.4 % (41.0-53.0); Hemoglobin 13.2 g/dL (13.5-17.5); Lymphocytes # (auto) 1.4 10 ^3/uL (0.4-5.4); Lymphocytes % (auto) 10.6 % (10.0-50.0); Mean Corpuscular Hgb Conc. 34.4 g/dL (32.0-36.0); Mean Corpuscular Volume 101.7 fL (80.0-100.0); Monocytes # (auto) 1.2 10 ^3/uL (0-1.3); Monocytes % (auto) 9.2 % (0.0-12.0); Neutrophils # (auto) 10.2 10 ^3/uL (1.6-8.6); Neutrophils % (auto) 79.5 % (37.0-80.0); Nucleated Red Blood Cells % 0.2 %; Platelet Count (auto) 93 10^3/uL (140-450); Red Blood Cells 3.77 10^6/uL (4.5-5.90); Red Cell Distribution Width 13.8 % (11.8-14.3); White Blood Cell 12.8 10^3/uL (4.4-10.8)
[2024-04-10 07:30] VITALS: PULSE 130; RESP 23; O2SAT 97
[2024-04-10 07:49] LABS: Alanine Aminotransferase 32 U/L (7-40); Anion Gap 12 (5-15); BUN/Creatinine Ratio 18.5 (10.0-20.0); Blood Urea Nitrogen 12 mg/dL (9-23); Carbon Dioxide 23 mmol/L (20-31); Chloride 101 mmol/L (98-107); Glucose 91 mg/dL (74-106); Potassium 3.5 mmol/L (3.5-5.1); Sodium 136 mmol/L (136-145)
[2024-04-10 07:50] LABS: Albumin 3.5 g/dL (3.2-4.8); Total Protein 6.1 g/dL (5.7-8.2)
[2024-04-10 07:52] LABS: Alkaline Phosphatase 211 U/L (46-116); Aspartate Aminotransferase 214 U/L (13-40); Bilirubin, Total 3.9 mg/dL (0.2-1.0); Calcium 8.6 mg/dL (8.7-10.4)
[2024-04-10] MEDS: chlordiazePOXIDE HCL 25 MG CAP PO SCH (10:40)
[2024-04-10] MEDS: SODIUM CHLORIDE 0.9% 1,000 ML IV SCH (12:30)
[2024-04-10] MEDS ORDERED: ONDANSETRON HCL 4 MG/2 ML VIAL IV PRN (12:30)
--- NOTE | 2024-04-10 13:43 | DVHCONRES ---
Date Seen: Apr 10, 2024 Resident Creating Document: BRANDO DUQUE RESIDENT Referring Physician Dr. Horton Reason for Consultation elevated tumor marker History of Present Illness Mr. Lindsey, a 53-year-old male with a history of alcohol abuse presented with generalized weakness, shaking chills, severe loss of appetite, and vomiting after binge drinking for two weeks. He sustained a fall, resulting in a head injury, and reported weight loss over the past 4-6 weeks. His CIWA score increased to 19, and he is currently on CIWA and Librium protocols. Examination revealed hepatomegaly, gallbladder sludge, mild emphysematous changes in the lungs, and other findings. He experienced hallucinations, tachycardia, and low potassium levels, with an EKG showing QT prolongation. Toxicology was positive for fentanyl. His symptoms are likely due to alcohol withdrawal, and GI was consulted with elevated CA-19-9 , CEA and black tarrry stool, considering MRCP for further evaluation. Social history remarkable with about 30 pack year smoking and alcohol abuse. Prior to admission patient lived home with family and functioned independently and PCP is Dr. Burrows. Past Medical History Denies Past Surgical History Denies Social History Social history remarkable with about 30 pack year smoking and alcohol abuse. Prior to admission patient lived home with family and functioned independently and PCP is Dr. Burrows. Allergies: Coded Allergies: Penicillins (Verified Allergy, Unknown, 03/25/24) Home Meds Active Scripts Methylprednisolone (Medrol Dosepak) 4 Mg Roman, 4 MG PO UD, #21 TAB UAD Prov:DEVENDRA VANESSA BARGE MASTER 03/25/24 Naproxen (NAPROSYN TABLET) 500 Mg Tb, 1 TAB PO BID, #60 TAB Prov:DEVENDRA VANESSA BARGE MASTER 03/25/24 Current Medications Current Medications Medications (Trade) Dose Ordered Sig/Riccardo Route PRN Reason Start Time Stop Time Status Last Admin Folic Acid 1 mg/ Multivitamins 10 ml/Magnesium Sulfate 8 meq/ Thiamine HCl 100 mg/Dextrose 1,013.2 ml @ 125.001 mls/hr DAILY@1800 INJ 04/09/24 18:00 04/09/24 11:37 DC Chlordiazepoxide HCl (Librium Capsule) 50 mg Q12HR PO 04/10/24 10:00 04/10/24 22:01 04/10/24 10:40 Chlordiazepoxide HCl (Librium Capsule) 25 mg Q12HR PO 04/11/24 10:00 04/11/24 22:01 Chlordiazepoxide HCl (Librium Capsule) 25 mg QAM PO 04/12/24 07:00 04/12/24 07:01 Folic Acid 1 mg/ Magnesium Sulfate 8 meq/ Multivitamins 10 ml/Thiamine HCl 100 mg/Sodium Chloride 1,013.2 ml @ 126.247 mls/hr DAILY@1800 INJ 04/09/24 18:00 04/09/24 20:02 Potassium Chloride 100 ml @ 50 mls/hr Q2H IV 04/10/24 03:45 04/10/24 07:44 DC 04/10/24 05:53 Ondansetron HCl (Zofran) 4 mg Q4HPRN PRN IV NAUSEA / VOMITING 04/10/24 12:30 Pantoprazole Sodium (Protonix) 40 mg DAILY IV 04/11/24 10:00 Sodium Chloride 1,000 ml @ 100 mls/hr Q10H IV 04/10/24 12:30 Review of Systems CONSTITUTIONAL: Fever, night sweats, weight loss, Lymphadenopathy, ecchymoses, fatigue DERMATOLOGIC: Rash, New/growing/changing skin lesions: Negative HEENT: Vision change, eye pain, Rhinorrhea, sinus pain, epistaxis, dysphagia, odynophagia, globus sensation, Change in hearing, tinnitus, vertigo, otalgia, Dental problems, oral ulcers or lesions: : Negative ENDOCRINE: Weight change, heat or cold intolerance, tremor, insomnia, neck pain or swelling, Polyuria, polydipsia, polyphagia, Abnormal hair growth, change in nails: Negative CARDIOVASCULAR: Chest pain, palpitations, syncope, Edema, cyanosis, claudication, Orthopnea, paroxysmal nocturnal dyspnea: Negative PULMONARY: Shortness of breath, dyspnea with exertion, Cough, hemoptysis, wheezing, chest pain : Negative GI: Nausea, vomiting, diarrhea, melena, hematochezia, Change in appetite, abdominal pain, change in bowel habits or stools : Dysuria, frequency, urgency, Urinary incontinence, hematuria, foamy urine, nocturia, Change in libido, erectile dysfunction, Change in menses, dysmenorrhea, dyspaerunia, pelvic pain: : Negative MUSCULOSKELETAL: Joint swelling or pain, muscle pain, back pain: : Negative NEUROLOGIC: Headache, scotoma, Change in smell or taste, change in facial muscles, Muscle weakness, paresthesias, anesthesia, Ataxia, change in speech: Negative PSYCHIATRIC: Depression, anxiety, hallucinations, mary carmen, suicidal/homicidal thoughts, Binging, purging: Negative Vital Signs Vital Signs Date Time Temp Pulse Resp B/P (MAP) Pulse Ox O2 Delivery O2 Flow Rate FiO2 04/10/24 12:12 97.9 119 17 135/83 (100) 97 97.9 04/10/24 07:30 Room Air* 0 21 Physical Exam GENERAL APPEARANCE: Well developed, well nourished, alert and cooperative, and appears to be in no acute distress. HEENT: WNL NECK: Neck supple, non-tender without lymphadenopathy, masses or thyromegaly. CARDIAC: Normal S1 and S2. No S3, S4 or murmurs. Rhythm is regular. There is no peripheral edema, cyanosis or pallor. Extremities are warm and well perfused. Capillary refill is less than 2 seconds. No carotid bruits. LUNGS: Clear to auscultation and percussion without rales, rhonchi, wheezing or diminished breath sounds. ABDOMEN: Positive bowel sounds. Soft, nondistended, nontender. No guarding or rebound. No masses. Mild epigastric tenderness. MSK: WNL NEUROLOGICAL: CN II-XII intact. Strength and sensation symmetric and intact throughout. Reflexes 2+ throughout. Cerebellar testing normal. SKIN: Skin normal color, texture and turgor with no lesions or eruptions. PSYCHIATRIC: The mental examination revealed the patient was oriented to person, place, and time. The patient was able to demonstrate good judgement and reason, without hallucinations, abnormal affect or abnormal behaviors during the examination. Patient is not suicidal. Labs/Diagnostic Data Labs Test 04/10/24 13:07 04/10/24 06:41 04/10/24 02:07 04/09/24 20:40 Range/Units White Blood Count 12.8 H 4.4-10.8 10^3/uL Red Blood Count 3.77 L 4.5-5.90 10^6/uL Hemoglobin 13.2 L 13.5-17.5 g/dL Hematocrit 38.4 L 41.0-53.0 % Mean Corpuscular Volume 101.7 H 80.0-100.0 fL Mean Corpuscular Hemoglobin 35.0 H 28.0-32.0 pg Mean Corpuscular Hemoglobin Concent 34.4 32.0-36.0 g/dL Red Cell Distribution Width 13.8 11.8-14.3 % Platelet Count 93 L 140-450 10^3/uL Mean Platelet Volume 10.2 6.9-10.8 fL Neutrophils (%) (Auto) 79.5 37.0-80.0 % Lymphocytes (%) (Auto) 10.6 10.0-50.0 % Monocytes (%) (Auto) 9.2 0.0-12.0 % Eosinophils (%) (Auto) 0.4 0.0-7.0 % Basophils (%) (Auto) 0.3 0.0-2.0 % Neutrophils # (Auto) 10.2 H 1.6-8.6 10 ^3/uL Lymphocytes # (Auto) 1.4 0.4-5.4 10 ^3/uL Monocytes # (Auto) 1.2 0-1.3 10 ^3/uL Eosinophils # (Auto) 0.1 0-0.8 10 ^3/uL Basophils # (Auto) 0 0-0.2 10 ^3/uL Nucleated Red Blood Cells 0.2 % Sodium Level 136 136-145 mmol/L Potassium Level 3.5 3.5-5.1 mmol/L Chloride Level 101 98-107 mmol/L Carbon Dioxide Level 23 20-31 mmol/L Anion Gap 12 5-15 Blood Urea Nitrogen 12 9-23 mg/dL Creatinine 0.65 L 0.700-1.30 mg/dL Glomerular Filtration Rate Calc 113 >90 mL/min BUN/Creatinine Ratio 18.5 10.0-20.0 Serum Glucose 91 74-106 mg/dL Calcium Level 8.6 L 8.7-10.4 mg/dL Total Bilirubin 3.9 H 0.2-1.0 mg/dL Aspartate Amino Transferase (AST) 214 H 13-40 U/L Alanine Aminotransferase (ALT) 32 7-40 U/L Alkaline Phosphatase 211 H 46-116 U/L Total Protein 6.1 5.7-8.2 g/dL Albumin 3.5 3.2-4.8 g/dL Urine Color Dark-yellow Yellow Urine Clarity Clear Clear Urine pH 6.5 5.0-9.0 Urine Specific [place] 1.030 1.001-1.035 Urine Protein 1+ H Negative Urine Ketones 2+ H Negative Urine Blood Trace H Negative /uL Urine Nitrite Negative Negative Urine Bilirubin 1+ Negative Urine Urobilinogen 8 H Negative mg/dL Urine Leukocyte Esterase Negative Negative /uL Urine RBC 1 0 - 3 /hpf Urine WBC 1 0 - 3 /hpf Urine Squamous Epithelial Cells None seen <5 /hpf Urine Bacteria None seen None Seen /hpf Urine Glucose Normal Normal mg/dL Urine Opiates Screen Neg NEGATIVE Urine Fentanyl Screen Pos NEGATIVE Urine Barbiturates Screen Neg NEGATIVE Urine Phencyclidine Screen Neg NEGATIVE Urine Amphetamines Screen Neg NEGATIVE Urine Benzodiazepines Screen Pos NEGATIVE Urine Cocaine Screen Neg NEGATIVE Urine Cannabinoids Screen Neg NEGATIVE Lipase 43 12-53 U/L Test 04/09/24 18:06 04/09/24 06:06 04/08/24 23:27 04/08/24 20:52 Range/Units Vancomycin Level Trough < 3.0 L 5-10 ug/mL Hemoglobin A1c 5.7 <5.7 % A1C Creatine Kinase 180 H 46-171 U/L Carcinoembryonic Antigen 13.65 <=5.0 ng/mL CA 19-9 Antigen 126 H 0-35 U/mL HIV (1&2) Antibody Negative Negative Plasma/Serum Blood Alcohol 7.6 <10 mg/dL Lactic Acid Level 5.9 *H 0.4-2.0 mmol/L Test 04/08/24 16:55 04/08/24 16:13 Range/Units Prothrombin Time 11.9 H 9.3-11.8 sec Prothrombin Time INR 1.14 0.9-1.15 Activated Partial Thromboplast Time 27.3 24.5-34.5 SEC Magnesium Level 1.7 1.6-2.6 mg/dL Troponin I High Sensitivity 3 L </=54 ng/L Thyroid Stimulating Hormone (TSH) 5.27 H 0.55-4.78 uIU/mL Free Thyroxine (T4) Calculated 1.02 0.89-1.76 ng/dL Free Triiodothyronine (T3) pg/mL 2.77 2.3-4.2 pg/mL Hepatitis A IgM Antibody Negative Hepatitis B Surface Antigen Negative Negative Hepatitis B Core IgM Antibody Negative Negative Hepatitis C Antibody Negative Negative POC Glucose 139 H 70-106 mg/dl Microbiology Date/Time Source Procedure Growth Status 04/08/24 18:28 Blood Blood Culture - Preliminary NO GROWTH AFTER 24 HOURS OF INCUBATION. Resulted Assessment GI Assessment/impression: # likely upper GI bleed, FOBT positive epigastric pain with alcohol abuse # Alcoholic hepatitis # Gallbladder hydrops # Gallbladder sludge # hepatobiliary dilatation, alk-phos high, CK 180 # Moderate hepatomegaly with diffuse fatty liver. # Scattered diverticulosis of the sigmoid colon without evidence of diverticulitis. # Omental fat-containing bilateral inguinal hernia, nonincarcerated # mechanical fall 2 days ago likely due to alcohol intoxication # Transaminitis, typical to use to 1 pattern likely due to alcoholic hepatitis # Hyperbilirubinemia # CA 19-9, CEA significantly high but MRCP unremarkable. # alcohol withdrawal # lactic acidosis # Mild centrilobular emphysematous changes in the lungs # Borderline prostatomegaly with parenchymal calcifications. # atherosclerotic calcification of the abdominal aorta and common iliac arteries # Degenerative disc disease at L5-S1 with vacuum disc phenomenon and moderate bilateral foraminal narrowing. # Hypertensive urgency, improved # recurrent Hypokalemia # high chance of refeeding syndrome # Macrocytic anemia # Thrombocytopenia Plan/Recommendation GI Plan: # Labs: follow up blood culture, daily CBC with close following of platelets, CMP, check B12, folate, please check daily magnesium phosphate and potassium. # Medications: H&H stable pantoprazole 40 mg daily IV to continue. # Imaging: In-hospital imaging reviewed, pending MRCP hepatobiliary/duodenal obstruction/mass. # Plan procedure: We will consider EGD, screening colonoscopy pending as well, can be considered outpatient george. # Diet: Alcohol abstinence, mitral the most. Additionally please avoid NSAIDs, caffeine, spicy, highly acidic and caustic diets. # serial abdominal examination and outpatient follow up. Thank you so much for the opportunity to consult on your patient. GI team will follow the patient. In case of any questions or concerns please feel free to reach out. Case an action plan discussed with Dr. Ping Cazares. Complex care planning needed total 49 minutes of detailed discussion. The patient and caregiver team agreed to the plan. Plan discussed with: Patient, Other (Primary team, spouse/partner) BRANDO DUQUE RESIDENT Apr 10, 2024 13:43
[2024-04-10] MEDS: ONDANSETRON HCL 4 MG/2 ML VIAL IV ONE (14:20)
[2024-04-10] MEDS: PANTOPRAZOLE 40 MG/10 ML VIAL INJ IV ONE (14:27)
--- NOTE | 2024-04-10 15:19 | DVH ---
MRI Abdomen, MRCP without IV Contrast Exam Date: 04/10/2024 02:29 PM Comparison: None History: elevated liver tests; elevated CA !9-9 Technique: Multisequence multiplanar MRI images were obtained of the abomen. MRCP including 3D SPACE, Radial 3D slabs and SPACE 3D MIP images Findings: Liver: Left hepatic cyst measuring up to 12 mm. Spleen: Unremarkable. Pancreas: The pancreas is normal in appearance without focal lesions. Gallbladder and ducts: Gallbladder is distended. No cholelithiasis identified. The cystic duct, righ t and left hepatic ducts, common hepatic duct, and common bile ducts are unremarkable. The pancreat ic duct is within normal limits. Adrenal glands: Unremarkable. Kidneys: Normal enhancement without suspicious lesions or hydronephrosis. Visualized bowel: Grossly unremarkable. Vasculature: Unremarkable. Lymphadenopathy: No evidence for lymphadenopathy. Ascites: Absent. Musculoskeletal: Bone marrow signal is normal. IMPRESSION: 1. Gallbladder hydrops. No obstructing calculus identified. No significant intrahepatic or extrahepa tic biliary dilation. No definite pancreatic mass. Hepatic cyst. If concern persists consider furthe r evaluation with MRI of the abdomen with contrast. HS:Y.
[2024-04-10] MEDS: FOLIC ACID 1 MG TAB PO ONE (18:12)
[2024-04-10] MEDS: THIAMINE HCL 100 MG TAB PO ONE (18:13)
[2024-04-10] MEDS: MAGNESIUM OXIDE 400 MG TAB PO ONE (18:13)
[2024-04-10] MEDS: MULTIPLE VITAMIN TAB PO ONE (18:14)
[2024-04-10 20:12] VITALS: PULSE 109; RESP 21; O2SAT 100
[2024-04-10 22:59] VITALS: RESP 24
[2024-04-10] MEDS ORDERED: METH4PAK3 PO (23:11)
[2024-04-10] MEDS ORDERED: DICL75TA4 PO (23:11)
[2024-04-11] MEDS: chlordiazePOXIDE HCL 5 MG CAP PO PRN (04:50)
[2024-04-11] MEDS: LABETALOL HCL 20 MG/4 ML VL IV PRN (04:53)
[2024-04-11 05:00] VITALS: BP 153/94; PULSE 102; RESP 19; TEMP 97.7; O2SAT 98
[2024-04-11 08:00] VITALS: PULSE 127
[2024-04-11 09:00] VITALS: BP 128/82; PULSE 112; RESP 18; TEMP 100.1; O2SAT 97
[2024-04-11 09:28] LABS: Hematocrit 34.8 % (41.0-53.0); Hemoglobin 11.7 g/dL (13.5-17.5); Mean Corpuscular Hgb Conc. 33.7 g/dL (32.0-36.0)
[2024-04-11 09:31] LABS: Basophils # (auto) 0.1 10 ^3/uL (0-0.2); Basophils % (auto) 0.6 % (0.0-2.0); Eosinophils # (auto) 0.1 10 ^3/uL (0-0.8); Eosinophils % (auto) 0.8 % (0.0-7.0); Lymphocytes # (auto) 1.2 10 ^3/uL (0.4-5.4); Mean Corpuscular Hemoglobin 34.8 pg (28.0-32.0); Mean Corpuscular Volume 103.3 fL (80.0-100.0); Monocytes # (auto) 0.9 10 ^3/uL (0-1.3); Monocytes % (auto) 9.7 % (0.0-12.0); Neutrophils # (auto) 7.1 10 ^3/uL (1.6-8.6); Neutrophils % (auto) 75.9 % (37.0-80.0); Nucleated Red Blood Cells % 0.2 %; Platelet Count (auto) 98 10^3/uL (140-450); Red Blood Cells 3.36 10^6/uL (4.5-5.90); Red Cell Distribution Width 13.8 % (11.8-14.3); White Blood Cell 9.4 10^3/uL (4.4-10.8)
[2024-04-11 09:48] LABS: Alanine Aminotransferase 37 U/L (7-40); Albumin 3.4 g/dL (3.2-4.8); Anion Gap 12 (5-15); BUN/Creatinine Ratio 17.7 (10.0-20.0); Blood Urea Nitrogen 11 mg/dL (9-23); Carbon Dioxide 23 mmol/L (20-31); Chloride 105 mmol/L (98-107); Glucose 87 mg/dL (74-106); Sodium 140 mmol/L (136-145)
[2024-04-11 10:31] LABS: Alkaline Phosphatase 190 U/L (46-116); Aspartate Aminotransferase 174 U/L (13-40); Bilirubin, Total 2.7 mg/dL (0.2-1.0); Calcium 8.5 mg/dL (8.7-10.4); Potassium 2.9 mmol/L (3.5-5.1); Total Protein 5.7 g/dL (5.7-8.2)
[2024-04-11] MEDS: MULTIPLE VITAMIN TAB PO SCH (11:22)
[2024-04-11] MEDS: PANTOPRAZOLE 40 MG/10 ML VIAL INJ IV SCH (11:22)
[2024-04-11] MEDS: FOLIC ACID 1 MG TAB PO SCH (11:22)
[2024-04-11] MEDS: chlordiazePOXIDE HCL 25 MG CAP PO SCH (11:23)
[2024-04-11] MEDS: MAGNESIUM OXIDE 400 MG TAB PO SCH (11:23)
[2024-04-11] MEDS: THIAMINE HCL 100 MG TAB PO SCH (11:23)
[2024-04-11 13:00] VITALS: BP 137/97; PULSE 100; RESP 18; TEMP 97.6; O2SAT 98
--- NOTE | 2024-04-11 14:08 | PRN ---
Misceleneous Note Note Note April 11, 2024 subjective: Patient doing about the same. Patient is asleep family is at bedside Current Medications Medications (Trade) Dose Ordered Sig/Riccardo Route PRN Reason Start Time Stop Time Status Last Admin Chlordiazepoxide HCl (Librium Capsule) 25 mg Q12HR PO 04/11/24 10:00 04/11/24 22:01 04/11/24 11:23 Chlordiazepoxide HCl (Librium Capsule) 25 mg QAM PO 04/12/24 07:00 04/12/24 07:01 Folic Acid 1 mg DAILY PO 04/11/24 10:00 04/11/24 11:22 Magnesium Oxide (Mag-Ox Tablet) 400 mg DAILY PO 04/11/24 10:00 04/11/24 11:23 Multivitamins (Mvi Tab) 1 tab DAILY PO 04/11/24 10:00 04/11/24 11:22 Pantoprazole Sodium (Protonix) 40 mg DAILY IV 04/11/24 10:00 04/11/24 11:22 Thiamine HCl 100 mg DAILY PO 04/11/24 10:00 04/11/24 11:23 Vital Signs Date Time Temp Pulse Resp B/P (MAP) Pulse Ox O2 Delivery O2 Flow Rate FiO2 04/11/24 05:53 102 155/99 04/11/24 05:00 97.7 19 98 97.7 04/10/24 22:59 Nasal Cannula* 2 28 Vital Signs Date Time Temp Pulse Resp B/P (MAP) Pulse Ox O2 Delivery O2 Flow Rate FiO2 04/11/24 05:53 102 155/99 04/11/24 05:00 97.7 102 19 153/94 (113) 98 97.7 04/11/24 04:53 116 155/106 04/10/24 22:59 24 Nasal Cannula* 2 28 04/10/24 22:00 120 16 139/100 (113) 98 04/10/24 21:14 132 26 178/118 (138) 99 04/10/24 20:12 109 21 100 Nasal Cannula* 2 28 04/10/24 20:12 99.9 109 21 146/104 (118) 100 99.9 04/10/24 20:00 117 04/10/24 18:00 122 20 121/99 (106) 99 04/10/24 16:00 98.2 121 16 98.2 Lab Test 04/11/24 09:03 Range/Units White Blood Count 9.4 # 4.4-10.8 10^3/uL Red Blood Count 3.36 L 4.5-5.90 10^6/uL Hemoglobin 11.7 L 13.5-17.5 g/dL Hematocrit 34.8 L 41.0-53.0 % Mean Corpuscular Volume 103.3 H 80.0-100.0 fL Mean Corpuscular Hemoglobin 34.8 H 28.0-32.0 pg Mean Corpuscular Hemoglobin Concent 33.7 32.0-36.0 g/dL Red Cell Distribution Width 13.8 11.8-14.3 % Platelet Count 98 L 140-450 10^3/uL Mean Platelet Volume 9.5 6.9-10.8 fL Neutrophils (%) (Auto) 75.9 37.0-80.0 % Lymphocytes (%) (Auto) 13.0 10.0-50.0 % Monocytes (%) (Auto) 9.7 0.0-12.0 % Eosinophils (%) (Auto) 0.8 0.0-7.0 % Basophils (%) (Auto) 0.6 0.0-2.0 % Neutrophils # (Auto) 7.1 1.6-8.6 10 ^3/uL Lymphocytes # (Auto) 1.2 0.4-5.4 10 ^3/uL Monocytes # (Auto) 0.9 0-1.3 10 ^3/uL Eosinophils # (Auto) 0.1 0-0.8 10 ^3/uL Basophils # (Auto) 0.1 0-0.2 10 ^3/uL Nucleated Red Blood Cells 0.2 % Sodium Level 140 136-145 mmol/L Potassium Level 2.9 L 3.5-5.1 mmol/L Chloride Level 105 98-107 mmol/L Carbon Dioxide Level 23 20-31 mmol/L Anion Gap 12 5-15 Blood Urea Nitrogen 11 9-23 mg/dL Creatinine 0.62 L 0.700-1.30 mg/dL Glomerular Filtration Rate Calc 115 >90 mL/min BUN/Creatinine Ratio 17.7 10.0-20.0 Serum Glucose 87 74-106 mg/dL Calcium Level 8.5 L 8.7-10.4 mg/dL Total Bilirubin 2.7 H 0.2-1.0 mg/dL Aspartate Amino Transferase (AST) 174 H 13-40 U/L Alanine Aminotransferase (ALT) 37 7-40 U/L Alkaline Phosphatase 190 H 46-116 U/L Total Protein 5.7 5.7-8.2 g/dL Albumin 3.4 3.2-4.8 g/dL Current Medications Medications (Trade) Dose Ordered Sig/Riccardo Route Start Time Stop Time Status Last Admin Chlordiazepoxide HCl (Librium Capsule) 25 mg Q12HR PO 04/11/24 10:00 04/11/24 22:01 04/11/24 11:23 Pantoprazole Sodium (Protonix) 40 mg DAILY IV 04/11/24 10:00 04/11/24 11:22 Folic Acid 1 mg DAILY PO 04/11/24 10:00 04/11/24 11:22 Multivitamins (Mvi Tab) 1 tab DAILY PO 04/11/24 10:00 04/11/24 11:22 Magnesium Oxide (Mag-Ox Tablet) 400 mg DAILY PO 04/11/24 10:00 04/11/24 11:23 Thiamine HCl 100 mg DAILY PO 04/11/24 10:00 04/11/24 11:23 General: Asleep arousable no distress HEENT: Normocephalic atraumatic extraocular muscle intact pupils equal round react to light and accommodating no scleral icterus Regular rate and rhythm Soft nontender nondistended No clubbing Impression: # GI bleeding # transaminitis # ETOH hepatitis # ETOH withdrawal Recommendations: 1. Follow H&H 2. Continue current medications 3. Hold off on endoscopy at this time 4. Continue with medications for withdrawal precautions 5. Continue PPI 6. No indication for ERCP at this time 7. Consider follow-up for CA 19-9 is outpatient 8. We will follow KRISTIAN MIRANDA MD Apr 11, 2024 14:08
--- NOTE | 2024-04-11 14:21 | DVHPN2 ---
Subjective The patient is seen and examined at bedside. The patient is still very tremulous Reviewed: Care Plan, H&P, Labs, Medications, Previous Orders, Radiology Changes from previous H/P or p: No Changes Eyes: No Pain, No Vision change, No Conjunctivae inflammation, No Eyelid inflammation, No Other, No Redness ENT: No Ear pain, No Ear discharge, No Nose pain, No Nose discharge, No Nose congestion, No Mouth pain, No Mouth swelling, No Throat pain, No Throat swelling, No Other Cardiovascular: No Chest Pain, No Palpitations, No Orthopnea, No Paroxysmal Noc. Dyspnea, No Edema, No Lt Headedness, No Other Respiratory: No Cough, No Dry, No Shortness of breath, No SOB with excertion, No Wheezing, No Hemoptysis, No Pleuritic Pain, No Sputum, No Other Gastrointestinal: Nausea, Vomiting; No Abdominal Pain, No Diarrhea, No Constipation, No Melena, No Hematochezia, No Other Genitourinary: No Dysuria, No Frequency, No Incontinence, No Hematuria, No Retention, No Other Musculoskeletal: No other, No neck pain, No shoulder pain, No arm pain, No back pain, No hand pain, No leg pain, No foot pain Skin: No Rash, No Lesions, No Jaundice, No Bruising, No Other Objective Vitals Vital Signs Date Time Temp Pulse Resp B/P (MAP) Pulse Ox O2 Delivery O2 Flow Rate FiO2 04/11/24 08:00 Nasal Cannula* 2 28 04/11/24 05:53 102 155/99 04/11/24 05:00 97.7 19 98 97.7 Intake/Output Intake and Output 04/11/24 07:00 Intake Total 325 ml Output Total 600 ml Balance -275 ml Intake Oral 25 ml IV Total 300 ml Output Urine Total 600 ml General Appearance: Alert, mild distress HEENT: Atraumatic, PERRLA, EOMI, Mucous membr. moist/pink Neck: Supple Lungs: Clear to auscultation, Normal air movement Cardiovascular: Regular rate, Normal S1, Normal S2, No murmurs, Gallops, Rubs Abdomen: Normal bowel sounds, Soft, No tenderness Neuro: Cranial nerves 3-12 NL Psych/Mental Status: Mental status NL Medications Current Medications Medications Dose Ordered Sig/Riccardo Route Start Time Stop Time Status Last Admin Dose Admin Chlordiazepoxide HCl 10 mg Q6HPRN PRN PO 04/09/24 09:15 04/11/24 04:50 10 MG Labetalol HCl 5 mg Q2HPRN PRN IV 04/09/24 09:30 04/11/24 04:53 5 MG Chlordiazepoxide HCl 25 mg Q12HR PO 04/11/24 10:00 04/11/24 22:01 04/11/24 11:23 25 MG Chlordiazepoxide HCl 25 mg QAM PO 04/12/24 07:00 04/12/24 07:01 Lorazepam 1 mg Q4HP PRN IV 04/09/24 09:30 04/11/24 06:45 1 MG Ondansetron HCl 4 mg Q4HPRN PRN IV 04/10/24 12:30 Pantoprazole Sodium 40 mg DAILY IV 04/11/24 10:00 04/11/24 11:22 40 MG Sodium Chloride 1,000 ml @ 100 mls/hr Q10H IV 04/10/24 12:30 04/11/24 11:25 100 MLS/HR Folic Acid 1 mg DAILY PO 04/11/24 10:00 04/11/24 11:22 1 MG Multivitamins 1 tab DAILY PO 04/11/24 10:00 04/11/24 11:22 1 TAB Magnesium Oxide 400 mg DAILY PO 04/11/24 10:00 04/11/24 11:23 400 MG Thiamine HCl 100 mg DAILY PO 04/11/24 10:00 04/11/24 11:23 100 MG Laboratory Results Laboratory Tests 04/11/24 09:03 Chemistry Test 04/11/24 09:03 Albumin 3.4 g/dL (3.2-4.8) Calcium Level 8.5 mg/dL (8.7-10.4) L Total Protein 5.7 g/dL (5.7-8.2) LFT Test 04/11/24 09:03 Alanine Aminotransferase (ALT) 37 U/L (7-40) Alkaline Phosphatase 190 U/L (46-116) H Aspartate Amino Transferase (AST) 174 U/L (13-40) H Total Bilirubin 2.7 mg/dL (0.2-1.0) H Urinalysis Test 04/10/24 02:07 Urine Color Dark-yellow (Yellow) Urine Clarity Clear (Clear) Urine pH 6.5 (5.0-9.0) Urine Specific [place] 1.030 (1.001-1.035) Urine Protein 1+ (Negative) H Urine Ketones 2+ (Negative) H Urine Blood Trace /uL (Negative) H Urine Nitrite Negative (Negative) Urine Bilirubin 1+ (Negative) Urine Urobilinogen 8 mg/dL (Negative) H Urine Leukocyte Esterase Negative /uL (Negative) Urine RBC 1 /hpf (0 - 3) Urine WBC 1 /hpf (0 - 3) Urine Squamous Epithelial Cells None seen /hpf (<5) Urine Bacteria None seen /hpf (None Seen) Urine Glucose Normal mg/dL (Normal) Microbiology Microbiology Date/Time Source Procedure Growth Status 04/10/24 02:07 Voided Urine Urine Culture - Preliminary Resulted 04/08/24 18:28 Blood Blood Culture - Preliminary NO GROWTH AFTER 48 HOURS OF INCUBATION. Resulted Labs and/or images reviewed: Labs reviewed by me Assessment/Plan Assessment/Plan Alcohol withdrawal, CIWA score 19 ( worsened today) Acute blood Anemia rule out GI Bleed Melena Macrocytic anemia Generalized weakness s/p mechanical fall 2 days ago Likely alcoholic Lactic acidosis Malnutrition Thrombocytopenia Hyponatremia Transaminitis Hyperbilirubinemia Hypertensive urgency Hypokalemia hepatomegaly with diffuse fatty infiltration of the liver. Scattered diverticulosis without evidence of diverticulitis. Omental fat-containing bilateral inguinal hernia, left more than right. Hypokalemia hyper ammonia Dehydration Depression Fentanyl abuse (UDS positive) Plan Continuing current management Continue Banana bag ( NS with vitamin B1, folic acid, multivitamins) daily Ativan 1mg q4hrs Chlordiazepoxide (librium) protocol Continuing IV labetalol prn Clonidine 0.1 bid prn Monitor and replace electrolytes Monitor stool and hgb stable Maintenance fluid Waiting for GI specialist to see the patient Code status: full code This medical document was created using an electronic medical record system with [employer] direct computerized dictation system. Although this document has been carefully reviewed, there may still be some phonetic and typographical errors. These areas are purely typographical due to imperfections of the software programs, and do not reflect any compromise in the patient's medical care. Plan discussed with: Patient Date of Service: Apr 11, 2024 Billing Provider: BRIEN PENNY MD Common Visit Codes: [id number] INP/OBS CARE(HIGH) BRIEN PENNY MD Apr 11, 2024 14:21
[2024-04-11 20:00] VITALS: PULSE 107
[2024-04-11 21:00] VITALS: BP_SYST 102; BP_SYST 149; BP_DIAS 61; BP_DIAS 99; PULSE 116; RESP 17; TEMP 97.9; O2SAT 100
[2024-04-11] MEDS: LACTULOSE 20Gm/30ML SOLN PO SCH (21:21)
[2024-04-12] VITALS (7 sets, daily range): BP systolic 143–163; BP diastolic 76–114; PULSE 83–122; RESP 17–20; TEMP 97.7–99.9; O2SAT 96–99
[2024-04-12] MEDS: chlordiazePOXIDE HCL 25 MG CAP PO SCH (06:23)
--- NOTE | 2024-04-12 11:02 | DVH ---
CT HEAD WITHOUT CONTRAST INDICATION: Confusion COMPARISON: CT HEAD WITHOUT CONTRAST on DOS: 04/08/24 TECHNIQUE: CT of the head without intravenous contrast. RADIATION DOSE: CTDIvol: 55.76 mGy, DLP: 893.86 mGy*cm FINDINGS: There is no evidence of acute intracranial hemorrhage, extra-axial collection, mass effect, midline s hift, herniation or hydrocephalus. The casey-white differentiation is intact. Mild cerebral atrophy. The surrounding soft tissues and osseous structures are unremarkable. Mastoids are clear. Mucosal thi ckening in the left maxillary sinus. Otherwise trace scattered mucosal thickening in the paranasal s inuses. IMPRESSION: No evidence of acute intracranial abnormality.
[2024-04-12 12:10] LABS: Basophils # (auto) 0.1 10 ^3/uL (0-0.2); Basophils % (auto) 1.3 % (0.0-2.0); Eosinophils # (auto) 0.1 10 ^3/uL (0-0.8); Hematocrit 36.6 % (41.0-53.0); Hemoglobin 12.4 g/dL (13.5-17.5); Lymphocytes # (auto) 1.3 10 ^3/uL (0.4-5.4); Lymphocytes % (auto) 15.1 % (10.0-50.0); Mean Corpuscular Hemoglobin 34.7 pg (28.0-32.0); Mean Corpuscular Volume 102.1 fL (80.0-100.0); Monocytes # (auto) 0.7 10 ^3/uL (0-1.3); Monocytes % (auto) 8.7 % (0.0-12.0); Neutrophils # (auto) 6.3 10 ^3/uL (1.6-8.6); Neutrophils % (auto) 73.9 % (37.0-80.0); Nucleated Red Blood Cells % 0.1 %; Platelet Count (auto) 115 10^3/uL (140-450); Red Blood Cells 3.58 10^6/uL (4.5-5.90); Red Cell Distribution Width 14.2 % (11.8-14.3); White Blood Cell 8.5 10^3/uL (4.4-10.8)
[2024-04-12 12:26] LABS: Alanine Aminotransferase 37 U/L (7-40); Anion Gap 11 (5-15); Carbon Dioxide 25 mmol/L (20-31); Chloride 102 mmol/L (98-107); Glucose 98 mg/dL (74-106); Magnesium 1.8 mg/dL (1.6-2.6); Sodium 138 mmol/L (136-145)
[2024-04-12 12:27] LABS: Albumin 3.2 g/dL (3.2-4.8); Alkaline Phosphatase 201 U/L (46-116); Aspartate Aminotransferase 167 U/L (13-40); Bilirubin, Total 3.2 mg/dL (0.2-1.0); Blood Urea Nitrogen < 5 mg/dL (9-23); Calcium 8.5 mg/dL (8.7-10.4); Creatine Kinase IFCC 283 U/L (46-171); Potassium 2.6 mmol/L (3.5-5.1); Total Protein 5.7 g/dL (5.7-8.2)
[2024-04-12] MEDS: POTASSIUM CHL 20MEQ/100ML 100 ML IV SCH (12:38)
[2024-04-12] MEDS: cloNIDine HCL 0.1 MG TAB PO ONE (16:10)
--- NOTE | 2024-04-12 17:00 | DVHPNRES ---
Progress Note Date Seen: Apr 12, 2024 Resident Creating Document: BERTRAM CONTEH RESIDENT Has the PT tested + for MRSA If YES, has PT been informed?: No Medical Necessity Reason Pt with a Central, PICC or Fol: No Medical Necessity Reason Alcohol withdrawal Subjective Review of Systems This is a 53-year-old male with history of alcohol abuse presented to the ED with a chief complaints of generalized weakness. According to the patient, he has been experiencing shaking chills, severe loss of appetite and severe generalized weakness for the past 2 weeks. Patient notes that he feels like he has no energy left at all and sustained a fall 2 days ago where he hit his head. He had 3 episodes of vomiting, no blood, mainly vomitus containing food particles. According the patient, he has been binge drinking for the past two weeks. Patient denied any recent travel out of the country, he is in monogamous relationship with his and he lives at home. Patient moved to [place] 8 months ago. And also notes weight loss in the last 4-6 weeks. White cell count was noted 12.9, lactic acid 5.1 AST level was 266, ALT was 46. At the time of my visit, patient passed a black tarry stool but he didn not mention any evidence of hematemesis. He was very unsteady but alert and oriented. Chest x-ray, CT head were grossly unremarkable ultrasound of the gallbladder revealed gallbladder sludge without convincing evidence of acute cholecystitis. CT chest/abdomen/pelvis showed Moderate hepatomegaly with diffuse fatty infiltration of the liver.Moderate distention of the gallbladder without evidence of acute cholecystitis. Mild centrilobular emphysematous changes in the lungs with subtle fibrotic bands in the inferior lingular segment and right lower lobe.No acute infiltrates or effusions Scattered diverticulosis of the sigmoid colon without evidence of diverticulitis. Omental fat-containing bilateral inguinal hernia, left more than right Borderline prostatomegaly with parenchymal calcifications.Subtle atherosclerotic calcification of the abdominal aorta and common iliac arteries, with normal contrast opacification and no aneurysm or dissection. PN: 04/10/2024 Patient is seen and examined this morning at bedside. He is alert oriented however his in [place] where he is hallucinating imagining family members with him or girlfriend and by the bedside. He has been question he is able to respond he is able to answer some questions but every now and then patient did into hallucination imagining what is not present. Overnight patient was noted to have tachycardic a low-potassium EKG was done which revealed sinus tachycardia on the EKG reading is showed QT prolongation of 527 however with irais calculation was 470. He is toxicology reports came back and patient was positive for fentanyl. Blood pressure is well under control at this moment and monitor. Patient's symptoms are likely due to alcohol withdrawal. Patient is also noted to have melena stool. Tumor marker CA19-9:126 H (0-35). GI is on the case and are considering MRCP. Chemistry improved today PN: 04/12/2024: patient is seen and examined by the bedside. Patient was sleeping at the time of my visit. There was a sitter in the room with the patient who mentioned to me that the night nurse said the patient seemed a lot more confused yesterday than he did not on previous days. And according to the nurse, when his family is around patient is orient, but later he was acting very confused. He is currently on lactulose and also he is on the withdrawal protocol. Ammonia level 25. K:2.6. mag 1.8.A CT of the head today did not reveal any abnormalities no bleeding noted no herniations noted no abnormalities found. Patient is currently on IV hydration creatinine kinase 283 not to the point of rhabdomyolysis we will keep monitoring. Objective vital signs Vital Sign Date Time Temp Pulse Resp B/P (MAP) Pulse Ox O2 Delivery O2 Flow Rate FiO2 04/12/24 16:10 151/106 04/12/24 13:00 99.9 108 19 99 99.9 04/12/24 08:00 Nasal Cannula* 2 28 Total Intake and Output 04/11/24 04/11/24 04/12/24 15:00 23:00 07:00 Intake Total 900 ml 400 ml Output Total 400 ml 650 ml Balance 500 ml -250 ml medications Current Medications Medications Dose Ordered Sig/Riccardo Route Start Time Stop Time Status Last Admin Dose Admin Chlordiazepoxide HCl 10 mg Q6HPRN PRN PO 04/09/24 09:15 04/12/24 01:22 10 MG Labetalol HCl 5 mg Q2HPRN PRN IV 04/09/24 09:30 04/12/24 00:27 5 MG Lorazepam 1 mg Q4HP PRN IV 04/09/24 09:30 04/12/24 00:26 1 MG Ondansetron HCl 4 mg Q4HPRN PRN IV 04/10/24 12:30 Pantoprazole Sodium 40 mg DAILY IV 04/11/24 10:00 04/12/24 11:24 40 MG Sodium Chloride 1,000 ml @ 100 mls/hr Q10H IV 04/10/24 12:30 04/12/24 14:20 100 MLS/HR Folic Acid 1 mg DAILY PO 04/11/24 10:00 04/12/24 11:24 1 MG Multivitamins 1 tab DAILY PO 04/11/24 10:00 04/12/24 11:23 1 TAB Magnesium Oxide 400 mg DAILY PO 04/11/24 10:00 04/12/24 11:24 400 MG Thiamine HCl 100 mg DAILY PO 04/11/24 10:00 04/12/24 11:24 100 MG Lactulose 30 ml Q8HR PO 04/11/24 22:00 04/12/24 13:31 30 ML Folic Acid 1 mg/ Magnesium Sulfate 8 meq/ Multivitamins 10 ml/Thiamine HCl 100 mg/Sodium Chloride 1,013.2 ml @ 126.247 mls/hr DAILY@1800 INJ 04/12/24 18:00 Examination General Appearance: Altered, tremor improved, sleeping HEENT: Atraumatic, PERRLA, EOMI Respiratory: Clear to auscultation, Normal air movement Cardiovascular: Regular rate, Normal S1, Normal S2 Abdominal: able to swallow, Normal bowel sounds (Abdominal tenderness to palpation) Extremities: No clubbing, No cyanosis, No edema Skin: No rashes, No breakdown, spot bleeding noted on his forehead and arm Neuro: Normal speech, but altered Psych/Mental Status: Unable to assess laboratory and microbiology Laboratory Tests 04/12/24 11:48 Test 04/12/24 11:48 Range/Units Serum Glucose 98 74-106 mg/dL Microbiology Date/Time Source Procedure Growth Status 04/10/24 02:07 Voided Urine Urine Culture - Final Complete 04/08/24 18:28 Blood Blood Culture - Preliminary NO GROWTH AFTER 72 HOURS OF INCUBATION. Resulted Problem List/Assessment/Plan Problem List/Assessment/Plan Assessment Alcohol withdrawal, CIWA score 19 ( worsened today) Acute blood Anemia rule out GI Bleed Melena Macrocytic anemia Generalized weakness s/p mechanical fall 2 days ago Likely alcoholic Lactic acidosis Malnutrition Thrombocytopenia Hyponatremia Transaminitis Hyperbilirubinemia Hypertensive urgency Hypokalemia hepatomegaly with diffuse fatty infiltration of the liver. Scattered diverticulosis without evidence of diverticulitis. Omental fat-containing bilateral inguinal hernia, left more than right. Hypokalemia hyperammonia--> resolved Dehydration Depression Fentanyl abuse (UDS positive) Plan Continue Banana bag ( NS with multivitamins)stop after 3 days Ativan 1mg q4hrs Chlordiazepoxide (librium) protocol IV labetalol 5mg q2hrs prn Clonidine 0.1 bid prn Monitor and replace electrolytes Monitor stool and hgb stable Maintenance fluid GI following Code status: full code Goal of care discussed for more than 35 minute Case and plan discussed with Plan discussed with: Spouse My Orders My Orders Orders - BERTRAM CONTEH Procedure Category Date Status Time Sequential JOSE 04/12/24 In Process Compression Device 09:[address] 04/12/24 Resulted 10:10 Lactic Acid W/ Reflex LAB 04/13/24 Verified Order 04:00 Folic Acid... PHA 04/12/24 In Process 18:00 Date of Service: Apr 12, 2024 Billing Provider: MANJIT POTTER MD Common Visit Codes: [id number] INP/OBS CARE(HIGH) BERTRAM CONTEH RESIDENT Apr 12, 2024 17:00 MANJIT POTTER MD Apr 12, 2024 20:10
[2024-04-12] MEDS ORDERED: FOLIC ACID 1 MG, MAGNESIUM SULF SDV 50% 8 MEQ, MULTIPLE VITAMIN 10 ML, THIAMINE INJ 100... INJ SCH (18:00)
[2024-04-13] VITALS (8 sets, daily range): BP systolic 134–155; BP diastolic 80–102; PULSE 91–112; RESP 18–20; TEMP 97.8–98.9; O2SAT 93–98
[2024-04-13 08:15] LABS: Chloride 104 mmol/L (98-107); Sodium 138 mmol/L (136-145)
[2024-04-13 08:16] LABS: Anion Gap 8 (5-15); Carbon Dioxide 26 mmol/L (20-31)
[2024-04-13 08:17] LABS: Calcium 8.6 mg/dL (8.7-10.4); Potassium 2.9 mmol/L (3.5-5.1)
[2024-04-13 08:21] LABS: BUN/Creatinine Ratio 10.3 (10.0-20.0)
[2024-04-13 08:23] LABS: Blood Urea Nitrogen 6 mg/dL (9-23); Creatine Kinase IFCC 127 U/L (46-171); Glucose 113 mg/dL (74-106)
[2024-04-13] MEDS: LACTULOSE 20Gm/30ML SOLN PO SCH (08:44)
[2024-04-13] MEDS: ENOXAPARIN SOD 40 MG/0.4 ML SYRINGE SC SCH (09:26)
[2024-04-13] MEDS: POTASSIUM CHLORIDE 80 MEQ, LIDOCAINE 1% (LOCAL ANESTH.) 6 ML in SODIUM CHL 0.9% 500 ML IV ONE (10:15)
--- NOTE | 2024-04-13 10:23 | DVHPNRES ---
Progress Note Date Seen: Apr 13, 2024 Resident Creating Document: BERTRAM CONTEH RESIDENT Has the PT tested + for MRSA If YES, has PT been informed?: No Medical Necessity Reason Pt with a Central, PICC or Fol: No Medical Necessity Reason altered, in and out Subjective Review of Systems Review of Systems This is a 53-year-old male with history of alcohol abuse presented to the ED with a chief complaints of generalized weakness. According to the patient, he has been experiencing shaking chills, severe loss of appetite and severe generalized weakness for the past 2 weeks. Patient notes that he feels like he has no energy left at all and sustained a fall 2 days ago where he hit his head. He had 3 episodes of vomiting, no blood, mainly vomitus containing food particles. According the patient, he has been binge drinking for the past two weeks. Patient denied any recent travel out of the country, he is in monogamous relationship with his and he lives at home. Patient moved to [place] 8 months ago. And also notes weight loss in the last 4-6 weeks. White cell count was noted 12.9, lactic acid 5.1 AST level was 266, ALT was 46. At the time of my visit, patient passed a black tarry stool but he didn not mention any evidence of hematemesis. He was very unsteady but alert and oriented. Chest x-ray, CT head were grossly unremarkable ultrasound of the gallbladder revealed gallbladder sludge without convincing evidence of acute cholecystitis. CT chest/abdomen/pelvis showed Moderate hepatomegaly with diffuse fatty infiltration of the liver.Moderate distention of the gallbladder without evidence of acute cholecystitis. Mild centrilobular emphysematous changes in the lungs with subtle fibrotic bands in the inferior lingular segment and right lower lobe.No acute infiltrates or effusions Scattered diverticulosis of the sigmoid colon without evidence of diverticulitis. Omental fat-containing bilateral inguinal hernia, left more than right Borderline prostatomegaly with parenchymal calcifications.Subtle atherosclerotic calcification of the abdominal aorta and common iliac arteries, with normal contrast opacification and no aneurysm or dissection. PN: 04/10/2024 Patient is seen and examined this morning at bedside. He is alert oriented however his in [place] where he is hallucinating imagining family members with him or girlfriend and by the bedside. He has been question he is able to respond he is able to answer some questions but every now and then patient did into hallucination imagining what is not present. Overnight patient was noted to have tachycardic a low-potassium EKG was done which revealed sinus tachycardia on the EKG reading is showed QT prolongation of 527 however with irais calculation was 470. He is toxicology reports came back and patient was positive for fentanyl. Blood pressure is well under control at this moment and monitor. Patient's symptoms are likely due to alcohol withdrawal. Patient is also noted to have melena stool. Tumor marker CA19-9:126 H (0-35). GI is on the case and are considering MRCP. Chemistry improved today PN: 04/12/2024: patient is seen and examined by the bedside. Patient was sleeping at the time of my visit. There was a sitter in the room with the patient who mentioned to me that the night nurse said the patient seemed a lot more confused yesterday than he did not on previous days. And according to the nurse, when his family is around patient is orient, but later he was acting very confused. He is currently on lactulose and also he is on the withdrawal protocol. Ammonia level 25. K:2.6. mag 1.8.A CT of the head today did not reveal any abnormalities no bleeding noted no herniations noted no abnormalities found. Patient is currently on IV hydration creatinine kinase 283 not to the point of rhabdomyolysis we will keep monitoring. PN: 04/13/2024: patient is seen and examined by the bedside. He was wake,but thinks that he is home. He had to be oriented that he is in the hospital. He knows the name of his and children. There was a sitter in the room with the patient. No major events reported. Reduced dose of lactulose as Ammonia is 25. K:2.9. mag 1.8. A CT of the head today did not reveal any abnormalities no bleeding noted no herniations noted no abnormalities found. Patient is currently on IV hydration creatinine . He has a alvarenga's catheter. Urine is very concentrated,very orange in color. Objective vital signs Vital Sign Date Time Temp Pulse Resp B/P (MAP) Pulse Ox O2 Delivery O2 Flow Rate FiO2 04/13/24 09:37 97.9 107 18 134/98 (110) 97 97.9 04/12/24 20:00 Nasal Cannula* 2 28 Total Intake and Output 04/12/24 04/12/24 04/13/24 15:00 23:00 07:00 Intake Total 900 ml 775 ml 1300 ml Output Total 1100 ml 200 ml Balance 900 ml -325 ml 1100 ml medications Current Medications Medications Dose Ordered Sig/Riccardo Route Start Time Stop Time Status Last Admin Dose Admin Chlordiazepoxide HCl 10 mg Q6HPRN PRN PO 04/09/24 09:15 04/12/24 01:22 10 MG Labetalol HCl 5 mg Q2HPRN PRN IV 04/09/24 09:30 04/12/24 00:27 5 MG Lorazepam 1 mg Q4HP PRN IV 04/09/24 09:30 04/12/24 00:26 1 MG Ondansetron HCl 4 mg Q4HPRN PRN IV 04/10/24 12:30 Pantoprazole Sodium 40 mg DAILY IV 04/11/24 10:00 04/13/24 08:44 40 MG Sodium Chloride 1,000 ml @ 100 mls/hr Q10H IV 04/10/24 12:30 04/13/24 02:11 100 MLS/HR Folic Acid 1 mg DAILY PO 04/11/24 10:00 04/13/24 08:43 1 MG Multivitamins 1 tab DAILY PO 04/11/24 10:00 04/13/24 08:43 1 TAB Magnesium Oxide 400 mg DAILY PO 04/11/24 10:00 04/13/24 08:43 400 MG Thiamine HCl 100 mg DAILY PO 04/11/24 10:00 04/13/24 08:43 100 MG Lactulose 30 ml DAILY PO 04/13/24 10:00 04/13/24 08:44 30 ML Enoxaparin Sodium 40 mg DAILY SC 04/13/24 10:00 04/13/24 09:26 40 MG Examination General Appearance: Altered, tremor improved, sleeping HEENT: Atraumatic, PERRLA, EOMI Respiratory: Clear to auscultation, Normal air movement Cardiovascular: Regular rate, Normal S1, Normal S2 Abdominal: able to swallow, Normal bowel sounds (Abdominal tenderness to palpation) Extremities: No clubbing, No cyanosis, No edema Skin: No rashes, No breakdown, spot bleeding noted on his forehead and arm Neuro: Normal speech, but altered Psych/Mental Status: Unable to assess laboratory and microbiology laboratory and microbiology Laboratory Tests 04/13/24 06:21 04/12/24 11:48 Test 04/13/24 06:21 Range/Units Serum Glucose 113 H 74-106 mg/dL Microbiology Date/Time Source Procedure Growth Status 04/10/24 02:07 Voided Urine Urine Culture - Final Complete 04/08/24 18:28 Blood Blood Culture - Preliminary NO GROWTH AFTER 72 HOURS OF INCUBATION. Resulted Problem List/Assessment/Plan Problem List/Assessment/Plan Assessment Alcohol withdrawal, CIWA score 19 ( worsened today) Acute blood Anemia rule out GI Bleed Melena Macrocytic anemia Generalized weakness s/p mechanical fall 2 days ago Likely alcoholic Lactic acidosis Malnutrition Thrombocytopenia Hyponatremia Transaminitis Hyperbilirubinemia Hypertensive urgency Hypokalemia hepatomegaly with diffuse fatty infiltration of the liver. Scattered diverticulosis without evidence of diverticulitis. Omental fat-containing bilateral inguinal hernia, left more than right. Hypokalemia hyperammonia--> resolved Dehydration Depression Fentanyl abuse (UDS positive) Plan Continue Banana bag ( NS with multivitamins)stop after 3 days Decrease Ativan to .5mg daily 10 mg Chlordiazepoxide tid IV labetalol 5mg q2hrs prn Clonidine 0.1 bid prn Monitor and replace electrolytes Monitor stool and hgb stable Maintenance fluid GI following PT evaluation Code status: full code Goal of care discussed for more than 25 minute Case and plan discussed with Dr. Horton Plan discussed with: Other My Orders My Orders Orders - BERTRAM CONTEH Procedure Category Date Status Time Head Without Contrast CT 04/12/24 Resulted 10:10 Lactulose Oral PHA 04/13/24 In Process 10:00 Enoxaparin Sodium PHA 04/13/24 In Process (Lovenox) 10:00 Potassium Chloride PHA 04/13/24 Logged (Potassium Chloride). 10:15 Magnesium Sulfate PHA 04/13/24 Logged 1gm/100ml 10:15 Date of Service: Apr 13, 2024 Billing Provider: DEMI HORTON MD Common Visit Codes: [id number] INP/OBS CARE(HIGH) BERTRAM CONTEH Apr 13, 2024 10:23 DEMI HORTON MD Apr 13, 2024 22:07
[2024-04-13] MEDS: cloNIDine 0.1 mg/24hr 7 DAY PATCH TD ONE (10:30)
[2024-04-13] MEDS: MAGNESIUM SULFATE 1GM/100ML 100 ML IV ONE (11:47)
--- NOTE | 2024-04-13 18:45 | DVHPN2 ---
Progress Note Date Seen: Apr 13, 2024 Resident Creating Document: BRANDO DUQUE RESIDENT Has the PT tested + for MRSA If YES, has PT been informed?: No Medical Necessity Reason Pt with a Central, PICC or Fol: No Subjective Review of Systems Patient was seen at the bedside, comparatively better than last time patient was seen at bedside. Hemodynamically stable at this point. Patient reports: Feels better Objective vital signs Vital Sign Date Time Temp Pulse Resp B/P (MAP) Pulse Ox O2 Delivery O2 Flow Rate FiO2 04/13/24 17:00 97.8 96 19 145/98 (114) 93 97.8 04/13/24 08:00 Nasal Cannula* 2 28 Total Intake and Output 04/12/24 04/12/24 04/13/24 15:00 23:00 07:00 Intake Total 900 ml 775 ml 1300 ml Output Total 1100 ml 200 ml Balance 900 ml -325 ml 1100 ml medications Current Medications Medications Dose Ordered Sig/Riccardo Route Start Time Stop Time Status Last Admin Dose Admin Labetalol HCl 5 mg Q2HPRN PRN IV 04/09/24 09:30 04/12/24 00:27 5 MG Ondansetron HCl 4 mg Q4HPRN PRN IV 04/10/24 12:30 Pantoprazole Sodium 40 mg DAILY IV 04/11/24 10:00 04/13/24 08:44 40 MG Sodium Chloride 1,000 ml @ 100 mls/hr Q10H IV 04/10/24 12:30 04/13/24 02:11 100 MLS/HR Folic Acid 1 mg DAILY PO 04/11/24 10:00 04/13/24 08:43 1 MG Multivitamins 1 tab DAILY PO 04/11/24 10:00 04/13/24 08:43 1 TAB Magnesium Oxide 400 mg DAILY PO 04/11/24 10:00 04/13/24 08:43 400 MG Thiamine HCl 100 mg DAILY PO 04/11/24 10:00 04/13/24 08:43 100 MG Lactulose 30 ml DAILY PO 04/13/24 10:00 04/13/24 08:44 30 ML Enoxaparin Sodium 40 mg DAILY SC 04/13/24 10:00 04/13/24 09:26 40 MG Chlordiazepoxide HCl 10 mg TID PRN PO 04/13/24 15:45 Lorazepam 0.5 mg Q4HP PRN IV 04/13/24 15:45 Examination GENERAL APPEARANCE: Well developed, well nourished, alert and cooperative, and appears to be in no acute distress. Improved. HEENT: WNL NECK: Neck supple, non-tender without lymphadenopathy, masses or thyromegaly. CARDIAC: Normal S1 and S2. No S3, S4 or murmurs. Rhythm is regular. There is no peripheral edema, cyanosis or pallor. Extremities are warm and well perfused. Capillary refill is less than 2 seconds. No carotid bruits. LUNGS: Clear to auscultation and percussion without rales, rhonchi, wheezing or diminished breath sounds. ABDOMEN: Positive bowel sounds. Soft, nondistended, nontender. No guarding or rebound. No masses. Mild epigastric tenderness. MSK: WNL NEUROLOGICAL: CN II-XII intact. Strength and sensation symmetric and intact throughout. Reflexes 2+ throughout. Cerebellar testing normal. SKIN: Skin normal color, texture and turgor with no lesions or eruptions. PSYCHIATRIC: The mental examination revealed the patient was oriented to person, place, and time. The patient was able to demonstrate good judgement and reason, without hallucinations, abnormal affect or abnormal behaviors during the examination. Patient is not suicidal. laboratory and microbiology Laboratory Tests 04/13/24 06:21 04/12/24 11:48 Test 04/13/24 06:21 Range/Units Serum Glucose 113 H 74-106 mg/dL Microbiology Date/Time Source Procedure Growth Status 04/10/24 02:07 Voided Urine Urine Culture - Final Complete 04/08/24 18:28 Blood Blood Culture - Final NO GROWTH AFTER 5 DAYS OF INCUBATION. Complete Labs and/or images reviewed: Labs reviewed by me, Image(s) reviewed by me Problem List/Assessment/Plan Problem List/Assessment/Plan Reasons for consultation: elevated tumor marker Hospitalization Summary: Mr. Lindsey, a 53-year-old male with a history of alcohol abuse presented with generalized weakness, shaking chills, severe loss of appetite, and vomiting after binge drinking for two weeks. He sustained a fall, resulting in a head injury, and reported weight loss over the past 4-6 weeks. His CIWA score increased to 19, and he is currently on CIWA and Librium protocols. Examination revealed hepatomegaly, gallbladder sludge, mild emphysematous changes in the lungs, and other findings. He experienced hallucinations, tachycardia, and low potassium levels, with an EKG showing QT prolongation. Toxicology was positive for fentanyl. His symptoms are likely due to alcohol withdrawal, and GI was consulted with elevated CA-19-9 , CEA and black tarrry stool, considering MRCP for further evaluation. Social history remarkable with about 30 pack year smoking and alcohol abuse. Prior to admission patient lived home with family and functioned independently and PCP is Dr. Burrows. Since then blood culture negative, H&H stable, ammonia unremarkable, FOBT positive, HIV and hepatitis negative, INR WNL, BUN is trending down patient is stable to is to 1 AST to ALT. In-hospital MRCP unremarkable. GI Assessment/impression: # likely upper GI bleed, FOBT positive epigastric pain with alcohol abuse # Alcoholic hepatitis # Gallbladder hydrops # Gallbladder sludge # hepatobiliary dilatation, alk-phos high, CK 180 # Moderate hepatomegaly with diffuse fatty liver. # Scattered diverticulosis of the sigmoid colon without evidence of diverticulitis. # Omental fat-containing bilateral inguinal hernia, nonincarcerated # mechanical fall 2 days ago likely due to alcohol intoxication # Transaminitis, typical to use to 1 pattern likely due to alcoholic hepatitis # Hyperbilirubinemia # CA 19-9, CEA significantly high but MRCP unremarkable. - # alcohol withdrawal # lactic acidosis # Mild centrilobular emphysematous changes in the lungs # Borderline prostatomegaly with parenchymal calcifications. # atherosclerotic calcification of the abdominal aorta and common iliac arteries # Degenerative disc disease at L5-S1 with vacuum disc phenomenon and moderate bilateral foraminal narrowing. # Hypertensive urgency, improved # recurrent Hypokalemia # high chance of refeeding syndrome # Macrocytic anemia # Thrombocytopenia GI Plan: # Labs: Trend H&H, daily CMP, Outpatient repeat CA 19 9. # Medications: H&H stable pantoprazole 40 mg daily IV to continue. # Plan procedure: We will consider EGD, tomorrow keep the patient NPO overnight, screening colonoscopy pending as well, can be considered outpatient george. # Diet: Alcohol abstinence, is most important in this patient. Additionally please avoid NSAIDs, caffeine, spicy, highly acidic and caustic diets. # serial abdominal examination and outpatient follow up with Dr. Cazares. Outpatient repeat CA 19 9. Thank you so much for the opportunity to consult on your patient. GI team will follow the patient. In case of any questions or concerns please feel free to reach out. Case an action plan discussed with Dr. Ping Cazares. Complex care planning needed total 47 minutes of detailed discussion. The patient and caregiver team agreed to the plan. Plan discussed with: Patient, Other (Primary team. RN.) BRANDO DUQUE RESIDENT Apr 13, 2024 18:45
[2024-04-13] MEDS: chlordiazePOXIDE HCL 5 MG CAP PO PRN (21:32)
[2024-04-14] VITALS (9 sets, daily range): BP systolic 119–153; BP diastolic 89–103; PULSE 57–113; RESP 16–38; TEMP 97.7–99.3; O2SAT 91–98
[2024-04-14] MEDS: NIFEdipine ER 30 MG TAB PO ONE (06:45)
[2024-04-14 07:34] LABS: Chloride 105 mmol/L (98-107); Sodium 138 mmol/L (136-145)
[2024-04-14 07:35] LABS: Anion Gap 7 (5-15); Carbon Dioxide 26 mmol/L (20-31)
[2024-04-14 07:40] LABS: Glucose 89 mg/dL (74-106)
[2024-04-14 07:47] LABS: BUN/Creatinine Ratio 10.4 (10.0-20.0); Blood Urea Nitrogen < 5 mg/dL (9-23); Calcium 8.5 mg/dL (8.7-10.4); Potassium 3.4 mmol/L (3.5-5.1)
[2024-04-14] MEDS: POTASSIUM CHL 20MEQ/100ML 100 ML IV ONE (08:00)
[2024-04-14] MEDS ORDERED: chlordiazePOXIDE HCL 5 MG CAP PO PRN (08:15)
[2024-04-14 09:13] LABS: Basophils # (auto) 0.1 10 ^3/uL (0-0.2); Basophils % (auto) 0.7 % (0.0-2.0); Eosinophils # (auto) 0.1 10 ^3/uL (0-0.8); Hemoglobin 12.1 g/dL (13.5-17.5); Platelet Count (auto) 151 10^3/uL (140-450)
[2024-04-14 09:15] LABS: Eosinophils % (auto) 0.8 % (0.0-7.0); Hematocrit 35.7 % (41.0-53.0); Lymphocytes # (auto) 1.2 10 ^3/uL (0.4-5.4); Lymphocytes % (auto) 15.4 % (10.0-50.0); Mean Corpuscular Hemoglobin 35.3 pg (28.0-32.0); Mean Corpuscular Hgb Conc. 33.8 g/dL (32.0-36.0); Mean Corpuscular Volume 104.4 fL (80.0-100.0); Monocytes # (auto) 0.9 10 ^3/uL (0-1.3); Monocytes % (auto) 12.1 % (0.0-12.0); Neutrophils # (auto) 5.5 10 ^3/uL (1.6-8.6); Nucleated Red Blood Cells % 0.1 %; Red Blood Cells 3.42 10^6/uL (4.5-5.90); White Blood Cell 7.8 10^3/uL (4.4-10.8)
[2024-04-14] MEDS ORDERED: LIDOCAINE VISCOUS 2% 15ML UD ONE (09:39)
[2024-04-14] MEDS ORDERED: MIDAZOLAM HCL 5 MG/ML-1ML VIAL ONE (09:39)
[2024-04-14] MEDS ORDERED: SODIUM CHLORIDE LOCK 0 ML ONE (09:39)
[2024-04-14] MEDS ORDERED: diphenhdrAMINE HCL 50 MG/1 ML VL ONE (09:39)
[2024-04-14] MEDS ORDERED: fentaNYL CITRATE 100 MCG/2 ML VL ONE ×2 (09:40→14:49)
[2024-04-14] MEDS: MAGNESIUM SULFATE 1GM/100ML 100 ML IV ONE (12:26)
--- NOTE | 2024-04-14 15:15 | DVHOP2 ---
Operative Report DATE OF OPERATION: 04/14/24 PROCEDURE: Upper Endoscopy with biopsy PREOPERATIVE INDICATION: The patient is a 53 -year-old male undergoing endoscopy for history of GI bleed POSTOPERATIVE DIAGNOSES: 1. 1-2 cm sliding-type hiatal hernia with grade B erosive esophagitis 2. Trace prominence of the distal esophageal veins; possible early varices 3. Zsaxlkie-by-jehzpe gastritis and gastropathy with superficial erosions 4. Severe duodenitis with multiple duodenal ulcers hyperemia erythema and erosions and mucosal edema PROCEDURE PERFORMED BY: Star Cazares GI NURSE: Jorge SCOPE: Olympus videoendoscope. ASA CLASS: 3. PREOPERATIVE MEDICATIONS: Mac sedation, PROCEDURE IN DETAIL: After obtaining an informed consent, the patient was placed on left lateral decubitus position. The patient was then sedated with the above medications. A bite block was placed between his teeth. The endoscope was then passed through the oropharynx, into the esophagus, and through the stomach and pylorus up to the second and third part of the duodenum. The endoscope was then withdrawn. Patient had a very abnormal appearing duodenum with hyperemia erythema and mucosal edema multiple superficial ulcerations and severe duodenitis Duodenal biopsies were obtained. Patient also had severe gastritis gastropathy hyperemia erythema and superficial erosions and gastric biopsies were obtained. On retroflexion the fundus and cardia were otherwise normal. The endoscope was then withdrawn into the distal esophagus Patient had a 1-2 cm sliding-type hiatal hernia with grade a to B erosive esophagitis and GE junction biopsies were obtained. Patient had trace prominence of the distal esophageal veins suspicious for possible early varices that flattened with insufflation Increase oozing was noted from biopsy sites. The patient tolerated the procedure well without difficulty. COMPLICATIONS : None SPECIMENS: Duodenal biopsies Gastric biopsies GE junction biopsies DISPOSITION: Transfer back to the floor Stable PLAN: 1. Await for biopsy result 2. Will place pt on Protonix 40 mg bid 3. Carafate 1 g p.o. 4 times a day 4. Swallow evaluation and advance diet as tolerated 5. Neurology consultation to evaluate for possibility of history of CVA ne urological deficit as patient has moderate ALOC and weakness 6. Thiamine and folic acid supplementation as the patient has had a history of alcohol abuse in the past STAR CAZARES MD Apr 14, 2024 15:15
[2024-04-14] MEDS: GADOTERATE MEG 10 MMOL/20ml INJ (0.5MMOL/ml) IV ONE (15:39)
--- NOTE | 2024-04-14 16:14 | ECG ---
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
[2024-04-14] MEDS: FUROSEMIDE 20 MG/2 ML VIAL IV ONE (16:15)
[2024-04-14 16:44] LABS: Base Excess -0.1 mmol/L (-2.0-3.0)
--- NOTE | 2024-04-14 16:53 | DVH ---
XY CHEST XRAY 1 VIEW, HISTORY: congested rule out aspiration COMPARISON: XY CHEST XRAY 1 VIEW on DOS: 04/08/24 XY CHEST XRAY 1 VIEW on DOS: 04/08/24 TECHNICAL DATA: 1 view of the chest was obtained. FINDINGS: Lines and tubes: None Cardiomediastinal silhouette: normal Pulmonary vasculature: normal Lung expansion: low Lung airspace: Left basilar atelectasis. Lung interstitium: normal Pleura: normal Pneumothorax: no Bones: Unremarkable Other: no IMPRESSION: Left basilar atelectasis. Hypoexpanded lungs.
[2024-04-14] MEDS: SUCRALFATE 1 GM/10 ML ORAL SUSP PO SCH (17:00)
[2024-04-14 17:51] LABS: Basophils # (auto) 0.1 10 ^3/uL (0-0.2); Eosinophils # (auto) 0.1 10 ^3/uL (0-0.8); Hematocrit 34.3 % (41.0-53.0); Hemoglobin 11.6 g/dL (13.5-17.5); Lymphocytes # (auto) 0.8 10 ^3/uL (0.4-5.4); Lymphocytes % (auto) 12.2 % (10.0-50.0); Mean Corpuscular Hemoglobin 35.1 pg (28.0-32.0); Mean Corpuscular Hgb Conc. 33.9 g/dL (32.0-36.0); Mean Corpuscular Volume 103.6 fL (80.0-100.0); Monocytes # (auto) 0.7 10 ^3/uL (0-1.3); Monocytes % (auto) 11.5 % (0.0-12.0); Neutrophils # (auto) 4.8 10 ^3/uL (1.6-8.6); Neutrophils % (auto) 74.3 % (37.0-80.0); Nucleated Red Blood Cells % 0.1 %; Platelet Count (auto) 167 10^3/uL (140-450); Red Blood Cells 3.31 10^6/uL (4.5-5.90); Red Cell Distribution Width 14.3 % (11.8-14.3); White Blood Cell 6.4 10^3/uL (4.4-10.8)
[2024-04-14] MEDS: FOLIC ACID 1 MG, MULTIPLE VITAMIN 10 ML, MAGNESIUM SULF SDV 50% 8 MEQ, THIAMINE INJ 100... INJ SCH (18:00)
[2024-04-14 18:08] LABS: Alanine Aminotransferase 34 U/L (7-40); Anion Gap 8 (5-15); BUN/Creatinine Ratio 12.8 (10.0-20.0); Carbon Dioxide 26 mmol/L (20-31); Chloride 106 mmol/L (98-107); Glucose 97 mg/dL (74-106); Magnesium 1.9 mg/dL (1.6-2.6); Potassium 3.6 mmol/L (3.5-5.1); Sodium 140 mmol/L (136-145)
[2024-04-14 18:31] LABS: Alkaline Phosphatase 179 U/L (46-116); Aspartate Aminotransferase 100 U/L (13-40); Bilirubin, Total 3.1 mg/dL (0.2-1.0); Blood Urea Nitrogen 6 mg/dL (9-23); Total Protein 5.1 g/dL (5.7-8.2)
--- NOTE | 2024-04-14 20:37 | DVHPNRES ---
Progress Note Date Seen: Apr 14, 2024 Resident Creating Document: BERTRAM CONTEH RESIDENT Has the PT tested + for MRSA If YES, has PT been informed?: No Medical Necessity Reason Pt with a Central, PICC or Fol: No Medical Necessity Reason Alcohol withdrawal Altered Subjective Review of Systems This is a 53-year-old male with history of alcohol abuse presented to the ED with a chief complaints of generalized weakness. According to the patient, he has been experiencing shaking chills, severe loss of appetite and severe generalized weakness for the past 2 weeks. Patient notes that he feels like he has no energy left at all and sustained a fall 2 days ago where he hit his head. He had 3 episodes of vomiting, no blood, mainly vomitus containing food particles. According the patient, he has been binge drinking for the past two weeks. Patient denied any recent travel out of the country, he is in monogamous relationship with his and he lives at home. Patient moved to [place] 8 months ago. And also notes weight loss in the last 4-6 weeks. White cell count was noted 12.9, lactic acid 5.1 AST level was 266, ALT was 46. At the time of my visit, patient passed a black tarry stool but he didn not mention any evidence of hematemesis. He was very unsteady but alert and oriented. Chest x-ray, CT head were grossly unremarkable ultrasound of the gallbladder revealed gallbladder sludge without convincing evidence of acute cholecystitis. CT chest/abdomen/pelvis showed Moderate hepatomegaly with diffuse fatty infiltration of the liver.Moderate distention of the gallbladder without evidence of acute cholecystitis. Mild centrilobular emphysematous changes in the lungs with subtle fibrotic bands in the inferior lingular segment and right lower lobe.No acute infiltrates or effusions Scattered diverticulosis of the sigmoid colon without evidence of diverticulitis. Omental fat-containing bilateral inguinal hernia, left more than right Borderline prostatomegaly with parenchymal calcifications.Subtle atherosclerotic calcification of the abdominal aorta and common iliac arteries, with normal contrast opacification and no aneurysm or dissection. PN: 04/10/2024 Patient is seen and examined this morning at bedside. He is alert oriented however his in [place] where he is hallucinating imagining family members with him or girlfriend and by the bedside. He has been question he is able to respond he is able to answer some questions but every now and then patient did into hallucination imagining what is not present. Overnight patient was noted to have tachycardic a low-potassium EKG was done which revealed sinus tachycardia on the EKG reading is showed QT prolongation of 527 however with irais calculation was 470. He is toxicology reports came back and patient was positive for fentanyl. Blood pressure is well under control at this moment and monitor. Patient's symptoms are likely due to alcohol withdrawal. Patient is also noted to have melena stool. Tumor marker [id number]:126 H (0-35). GI is on the case and are considering MRCP. Chemistry improved today PN: 04/12/2024: patient is seen and examined by the bedside. Patient was sleeping at the time of my visit. There was a sitter in the room with the patient who mentioned to me that the night nurse said the patient seemed a lot more confused yesterday than he did not on previous days. And according to the nurse, when his family is around patient is orient, but later he was acting very confused. He is currently on lactulose and also he is on the withdrawal protocol. Ammonia level 25. K:2.6. mag 1.8.A CT of the head today did not reveal any abnormalities no bleeding noted no herniations noted no abnormalities found. Patient is currently on IV hydration creatinine kinase 283 not to the point of rhabdomyolysis we will keep monitoring. PN: 04/13/2024: patient is seen and examined by the bedside. He was wake,but thinks that he is home. He had to be oriented that he is in the hospital. He knows the name of his and children. There was a sitter in the room with the patient. No major events reported. Reduced dose of lactulose as Ammonia is 25. K:2.9. mag 1.8. A CT of the head today did not reveal any abnormalities no bleeding noted no herniations noted no abnormalities found. Patient is currently on IV hydration creatinine [id number]. He has a alvarenga's catheter. Urine is very concentrated,very orange in color. PN: 04/14/2024: Patient is seen and examined today. He seemed to a little altered and he has been in and out. Sometimes, he answers questions appropriately other times he does not. Patient was kept NPO this morning because he was scheduled for EGD today. We decreased patient's Librium from 3 times a day to 2 times a day labs this morning showed normal sodium level potassium level was decreased to 3.4 potassium was replaced. PT evaluation on board. This afternoon patient had EGD. S/p EGD patient had elevated heart rate of 110, respiratory rate of 37. I was called to the recovery room as patient had changes on ekg, tachypnea and tachycardia. Ordered stat ABG , chest xray and troponin, and furosemide 20 mg. Chest x-ray showed Left basilar atelectasis. Hypoexpanded lung ; ABG normal and troponin was 14. Objective vital signs Vital Sign Date Time Temp Pulse Resp B/P (MAP) Pulse Ox O2 Delivery O2 Flow Rate FiO2 04/14/24 17:30 97.7 103 38 119/89 (99) 98 97.7 04/14/24 15:25 Nasal Cannula 6.0 04/14/24 15:25 93 Total Intake and Output 04/13/24 04/13/24 04/14/24 15:00 23:00 07:00 Intake Total 300 ml 100 ml Output Total 400 ml Balance -100 ml 100 ml medications Current Medications Medications Dose Ordered Sig/Riccardo Route Start Time Stop Time Status Last Admin Dose Admin Labetalol HCl 5 mg Q2HPRN PRN IV 04/09/24 09:30 04/14/24 12:43 5 MG Ondansetron HCl 4 mg Q4HPRN PRN IV 04/10/24 12:30 Sodium Chloride 1,000 ml @ 100 mls/hr Q10H IV 04/10/24 12:30 04/13/24 02:11 100 MLS/HR Lactulose 30 ml DAILY PO 04/13/24 10:00 04/13/24 08:44 30 ML Enoxaparin Sodium 40 mg DAILY SC 04/13/24 10:00 04/14/24 10:00 40 MG Lorazepam 0.5 mg Q4HP PRN IV 04/13/24 15:45 Chlordiazepoxide HCl 10 mg BID PRN PO 04/14/24 08:15 Thiamine HCl 100 mg DAILY PO 04/15/24 10:00 Folic Acid 1 mg DAILY PO 04/15/24 10:00 Sucralfate 1 gm QID@0600,1130,1700,2200 PO 04/14/24 17:00 Pantoprazole Sodium 40 mg BID IV 04/14/24 22:00 Folic Acid 1 mg/ Multivitamins 10 ml/Magnesium Sulfate 8 meq/ Thiamine HCl 100 mg/Dextrose 1,013.2 ml @ 125.001 mls/hr DAILY@1800 INJ 04/14/24 18:00 04/15/24 02:07 Magnesium Oxide 400 mg DAILY PO 04/15/24 10:00 Multivitamins 1 tab DAILY PO 04/15/24 10:00 Examination General Appearance: improving mental status HEENT: Atraumatic, PERRLA, EOMI Respiratory: Mild congestion Cardiovascular: Regular rate, Normal S1, Normal S2 Abdominal: able to swallow, Normal bowel sounds (Abdominal tenderness to palpation) Extremities: No clubbing, No cyanosis, No edema Skin: No rashes, No breakdown, Neuro: Normal speech, but altered Psych/Mental Status: Unable to assess laboratory and microbiology Laboratory Tests 04/14/24 17:36 Test 04/14/24 17:36 Range/Units Serum Glucose 97 74-106 mg/dL Microbiology Date/Time Source Procedure Growth Status 04/10/24 02:07 Voided Urine Urine Culture - Final Complete 04/08/24 18:28 Blood Blood Culture - Final NO GROWTH AFTER 5 DAYS OF INCUBATION. Complete Problem List/Assessment/Plan Problem List/Assessment/Plan Assessment Alcohol withdrawal, CIWA score 19 on admission Metabolic encephalopathy Acute blood Anemia rule out GI Bleed Melena Macrocytic anemia Generalized weakness s/p mechanical fall 2 days ago Likely alcoholic Lactic acidosis Malnutrition Thrombocytopenia Hyponatremia Transaminitis Hyperbilirubinemia Hypertensive urgency Hypokalemia hepatomegaly with diffuse fatty infiltration of the liver. Scattered diverticulosis without evidence of diverticulitis. Omental fat-containing bilateral inguinal hernia, left more than right. Hypokalemia hyperammonemia--> resolved Dehydration Depression Fentanyl abuse (UDS positive) Plan Continue Banana bag (NS with multivitamins)stop after 3 days Decrease Ativan to .5mg daily 10 mg Chlordiazepoxide BID IV labetalol 5mg q2hrs prn Clonidine 0.1 bid prn Monitor and replace electrolytes Monitor stool and hgb stable Maintenance fluid GI following PT evaluation Furosemide Code status: full code Goal of care discussed for more than 25 minute Case and plan discussed with Dr. Horton Plan discussed with: Patient My Orders My Orders Orders - BERTRAM CONTEH RESIDENT Procedure Category Date Status Time Incentive Spirometry ORDERS 04/14/24 Transmitted 07:55 Soc Telemed Psych CONS 04/14/24 Transmitted Consult 07:55 Magnesium Oxide PHA 04/15/24 In Process Tablet (Mag-Ox Tablet) 10:00 Multiple Vitamin PHA 04/15/24 In Process Tablet (Mvi Tab) 10:00 Chest Xray 1 View XY 04/14/24 Resulted 16:16 Abg W/ Co-Ox RT 04/14/24 Logged 16:46 Date of Service: Apr 14, 2024 Billing Provider: DEMI HORTON MD Common Visit Codes: [id number] INP/OBS CARE(HIGH) BERTRAM CONTEH RESIDENT Apr 14, 2024 20:37 DEMI HORTON MD Apr 15, 2024 19:26
[2024-04-14] MEDS: PANTOPRAZOLE 40 MG/10 ML VIAL INJ IV SCH (21:07)
[2024-04-15] VITALS (8 sets, daily range): BP systolic 114–145; BP diastolic 87–96; PULSE 93–115; RESP 19–99; TEMP 97.4–99.1; O2SAT 95–99
[2024-04-15 05:51] LABS: Basophils # (auto) 0.1 10 ^3/uL (0-0.2); Basophils % (auto) 0.7 % (0.0-2.0); Eosinophils # (auto) 0.1 10 ^3/uL (0-0.8); Eosinophils % (auto) 1.1 % (0.0-7.0); Hematocrit 33.6 % (41.0-53.0); Hemoglobin 11.6 g/dL (13.5-17.5); Lymphocytes # (auto) 1.1 10 ^3/uL (0.4-5.4); Lymphocytes % (auto) 12.1 % (10.0-50.0); Mean Corpuscular Hemoglobin 36.2 pg (28.0-32.0); Mean Corpuscular Hgb Conc. 34.6 g/dL (32.0-36.0); Mean Corpuscular Volume 104.6 fL (80.0-100.0); Monocytes # (auto) 1.1 10 ^3/uL (0-1.3); Monocytes % (auto) 12.1 % (0.0-12.0); Neutrophils # (auto) 6.4 10 ^3/uL (1.6-8.6); Nucleated Red Blood Cells % 0.1 %; Platelet Count (auto) 185 10^3/uL (140-450); Red Blood Cells 3.21 10^6/uL (4.5-5.90); Red Cell Distribution Width 14.2 % (11.8-14.3); White Blood Cell 8.7 10^3/uL (4.4-10.8)
[2024-04-15 06:15] LABS: Alanine Aminotransferase 31 U/L (7-40); Anion Gap 9 (5-15); BUN/Creatinine Ratio 13.3 (10.0-20.0); Carbon Dioxide 25 mmol/L (20-31); Chloride 104 mmol/L (98-107); Glucose 85 mg/dL (74-106); Sodium 138 mmol/L (136-145)
[2024-04-15 06:20] LABS: Albumin 3.1 g/dL (3.2-4.8); Alkaline Phosphatase 169 U/L (46-116); Aspartate Aminotransferase 86 U/L (13-40); Bilirubin, Total 2.8 mg/dL (0.2-1.0); Blood Urea Nitrogen 6 mg/dL (9-23); Calcium 8.5 mg/dL (8.7-10.4); Potassium 3.4 mmol/L (3.5-5.1); Total Protein 5.5 g/dL (5.7-8.2)
--- NOTE | 2024-04-15 10:22 | DVH ---
MRI ABDOMEN WITH CONTRAST CLINICAL HISTORY: F/U MRCP Technique: Multiplanar, multisequence MRI of the abdomen with and without contrast. 10/10 cc of gadovist contrast from a prefilled syringe was administered intravenously. Comparison: MRCP 04/10/2024 FINDINGS: The liver demonstrates signal dropout on the out of phase T1 images compatible with hepatic steatosis . There are scattered small hepatic cysts. There is no suspicious appearing hepatic lesion or focus o f pathologic enhancement. There is redemonstration of a distended gallbladder. There is no obvious gallstone or pericholecystic fluid identified on MRI. There is no obvious gallbladder lesion. There is no evidence of biliary du ctal dilatation. The spleen, pancreas, kidneys, adrenal glands appear within normal limits. The visualized small an d large bowel loops demonstrate normal caliber. There is no free fluid or free air. There is scarring versus atelectasis in the bilateral lung bases, [id number]. The osseous structures and soft tissues appear within normal limits. IMPRESSION: 1. Redemonstration of a distended gallbladder without obvious gallstone or pericholecystic fluid. The re is no evidence of biliary ductal dilatation. 2. Hepatic steatosis. There are scattered small hepatic cysts. HS:Y
[2024-04-15] MEDS: MAGNESIUM OXIDE 400 MG TAB PO SCH (10:33)
[2024-04-15] MEDS: MULTIPLE VITAMIN TAB PO SCH (10:33)
[2024-04-15] MEDS: FOLIC ACID 1 MG TAB PO SCH (10:33)
[2024-04-15] MEDS: THIAMINE HCL 100 MG TAB PO SCH (10:33)
[2024-04-15] MEDS: FUROSEMIDE 40 MG/4 ML VIAL IV ONE (13:01)
[2024-04-15] MEDS: POTASSIUM CHLORIDE 20 MEQ, LIDOCAINE 1% (LOCAL ANESTH.) 2 ML in SODIUM CHL 0.9% 100 ML IV ONE (15:10)
--- NOTE | 2024-04-15 17:50 | DVHINCON2 ---
Date of Service if different f: Apr 15, 2024 Consultation ([facility]) Consulting Physician: STAR EDWARD MD Labs Laboratory Tests Test 04/08/24 16:13 04/08/24 16:55 04/08/24 23:27 04/09/24 06:06 Bedside Glucose 139 mg/dl (70-106) Prothrombin Time 11.9 sec (9.3-11.8) Prothromb Time International Ratio 1.14 (0.9-1.15) Activated Partial Thromboplast Time 27.3 SEC (24.5-34.5) Thyroid Stimulating Hormone (TSH) 5.27 uIU/mL (0.55-4.78) Free Thyroxine (T4) Calculated 1.02 ng/dL (0.89-1.76) Free Triiodothyronine (T3) pg/mL 2.77 pg/mL (2.3-4.2) Hepatitis A IgM Antibody Negative Hepatitis B Surface Antigen Negative (Negative) Hepatitis B Core IgM Antibody Negative (Negative) Hepatitis C Antibody Negative (Negative) Plasma/Serum Blood Alcohol 7.6 mg/dL (<10) Hemoglobin A1c 5.7 % A1C (<5.7) Carcinoembryonic Antigen 13.65 ng/mL (<=5.0) CA 19-9 Antigen 126 U/mL (0-35) HIV (1&2) Antibody Negative (Negative) Test 04/09/24 18:06 04/09/24 20:40 04/10/24 02:07 04/10/24 13:54 Vancomycin Level Trough < 3.0 ug/mL (5-10) Lipase 43 U/L (12-53) Urine Color Dark-yellow (Yellow) Urine Clarity Clear (Clear) Urine pH 6.5 (5.0-9.0) Urine Specific [place] 1.030 (1.001-1.035) Urine Protein 1+ (Negative) Urine Ketones 2+ (Negative) Urine Blood Trace /uL (Negative) Urine Nitrite Negative (Negative) Urine Bilirubin 1+ (Negative) Urine Urobilinogen 8 mg/dL (Negative) Urine Leukocyte Esterase Negative /uL (Negative) Urine RBC 1 /hpf (0 - 3) Urine WBC 1 /hpf (0 - 3) Urine Squamous Epithelial Cells None seen /hpf (<5) Urine Bacteria None seen /hpf (None Seen) Urine Glucose Normal mg/dL (Normal) Urine Opiates Screen Neg (NEGATIVE) Urine Fentanyl Screen Pos (NEGATIVE) Urine Barbiturates Screen Neg (NEGATIVE) Urine Phencyclidine Screen Neg (NEGATIVE) Urine Amphetamines Screen Neg (NEGATIVE) Urine Benzodiazepines Screen Pos (NEGATIVE) Urine Cocaine Screen Neg (NEGATIVE) Urine Cannabinoids Screen Neg (NEGATIVE) Stool Occult Blood Positive (Negative) Stool Occult Blood Sample #3 (Negative) Test 04/13/24 06:21 04/14/24 16:38 04/14/24 17:36 04/15/24 05:12 Creatine Kinase 127 U/L (46-171) Blood Gas Specimen Type Arterial Blood Gas Sample Site Right radial Blood Gas Patient Temperature 37.0 Arterial Blood Date Drawn [id number] Arterial Blood pH 7.434 (7.350-7.450) Arterial Blood Partial Pressure CO2 36.4 mmHg (35.0-48.0) Arterial Blood Partial Pressure O2 86.2 mmHg (83.0-108.0) Arterial Blood HCO3 23.8 mmol/L (21.0-28.0) Arterial Blood Oxygen Saturation 95.2 % (94.0-98.0) Arterial Blood Base Excess -0.1 mmol/L (-2.0-3.0) Arterial Blood Oxyhemoglobin 94.1 % (94.0-98.0) Arterial Blood Carboxyhemoglobin 0.9 % (0.5-1.5) Arterial Blood Methemoglobin 0.3 % (0.0-1.5) Gavin Test Yes Blood Gas Total Hemoglobin 12.20 g/dL (13.5-17.5) Blood Gas Liter Flow 6.00 Blood Gas Modality Nasal cannula FiO2 % 44.0 Lactic Acid Level 0.8 mmol/L (0.4-2.0) Magnesium Level 1.9 mg/dL (1.6-2.6) Troponin I High Sensitivity 14 ng/L (</=54) White Blood Count 8.7 10^3/uL (4.4-10.8) Red Blood Count 3.21 10^6/uL (4.5-5.90) Hemoglobin 11.6 g/dL (13.5-17.5) Hematocrit 33.6 % (41.0-53.0) Mean Corpuscular Volume 104.6 fL (80.0-100.0) Mean Corpuscular Hemoglobin 36.2 pg (28.0-32.0) Mean Corpuscular Hemoglobin Concent 34.6 g/dL (32.0-36.0) Red Cell Distribution Width 14.2 % (11.8-14.3) Platelet Count 185 10^3/uL (140-450) Mean Platelet Volume 8.8 fL (6.9-10.8) Neutrophils (%) (Auto) 74.0 % (37.0-80.0) Lymphocytes (%) (Auto) 12.1 % (10.0-50.0) Monocytes (%) (Auto) 12.1 % (0.0-12.0) Eosinophils (%) (Auto) 1.1 % (0.0-7.0) Basophils (%) (Auto) 0.7 % (0.0-2.0) Neutrophils # (Auto) 6.4 10 ^3/uL (1.6-8.6) Lymphocytes # (Auto) 1.1 10 ^3/uL (0.4-5.4) Monocytes # (Auto) 1.1 10 ^3/uL (0-1.3) Eosinophils # (Auto) 0.1 10 ^3/uL (0-0.8) Basophils # (Auto) 0.1 10 ^3/uL (0-0.2) Nucleated Red Blood Cells 0.1 % Sodium Level 138 mmol/L (136-145) Potassium Level 3.4 mmol/L (3.5-5.1) Chloride Level 104 mmol/L (98-107) Carbon Dioxide Level 25 mmol/L (20-31) Anion Gap 9 (5-15) Blood Urea Nitrogen 6 mg/dL (9-23) Creatinine 0.45 mg/dL (0.700-1.30) Glomerular Filtration Rate Calc 127 mL/min (>90) BUN/Creatinine Ratio 13.3 (10.0-20.0) Serum Glucose 85 mg/dL (74-106) Calcium Level 8.5 mg/dL (8.7-10.4) Ferritin 519.0 ng/mL (22-322) Total Bilirubin 2.8 mg/dL (0.2-1.0) Aspartate Amino Transf (AST/SGOT) 86 U/L (13-40) Alanine Aminotransferase (ALT/SGPT) 31 U/L (7-40) Alkaline Phosphatase 169 U/L (46-116) Ammonia 43 umol/L (11-32) Total Protein 5.5 g/dL (5.7-8.2) Albumin 3.1 g/dL (3.2-4.8) Vitamin B12 Level 1816 pg/mL (211-911) Microbiology Date/Time Source Procedure Growth Status 04/10/24 02:07 Voided Urine Urine Culture - Final Complete 04/08/24 18:28 Blood Blood Culture - Final NO GROWTH AFTER 5 DAYS OF INCUBATION. Complete Appetite: Poor Appearance: Stated age, Disheveled Psychomotor activity: WNL Behavioral: Cooperative Eye contact: Limited Affect: Appropriate, Mood Congruent Mood: Depressed, Anxious Thought processes: Linear/Goal-directed Thought content: WNL Suicidal ideations: Absent Homicidal ideations: Absent Orientation: Person, Place, Time, Situation Memory intact: Recent Intellect: Average Abstractability: WNL Concentration: Adequate Attention: Adequate Judgement: WNL Insight: Fair Vitals Vital Signs Date Time Temp Pulse Resp B/P (MAP) Pulse Ox O2 Delivery O2 Flow Rate FiO2 04/15/24 13:01 124/85 04/15/24 05:00 98.9 102 20 98 98.9 04/14/24 20:00 Nasal Cannula* 6 44 Current medications Current Medications Medications Dose Ordered Sig/Riccardo Route Start Time Stop Time Status Last Admin Dose Admin Labetalol HCl 5 mg Q2HPRN PRN IV 04/09/24 09:30 04/14/24 12:43 5 MG Ondansetron HCl 4 mg Q4HPRN PRN IV 04/10/24 12:30 Sodium Chloride 1,000 ml @ 100 mls/hr Q10H IV 04/10/24 12:30 Hold 04/13/24 02:11 100 MLS/HR Lactulose 30 ml DAILY PO 04/13/24 10:00 04/15/24 10:33 30 ML Enoxaparin Sodium 40 mg DAILY SC 04/13/24 10:00 04/15/24 10:32 40 MG Lorazepam 0.5 mg Q4HP PRN IV 04/13/24 15:45 Chlordiazepoxide HCl 10 mg BID PRN PO 04/14/24 08:15 Thiamine HCl 100 mg DAILY PO 04/15/24 10:00 04/15/24 10:33 100 MG Folic Acid 1 mg DAILY PO 04/15/24 10:00 04/15/24 10:33 1 MG Sucralfate 1 gm QID@0600,1130,1700,2200 PO 04/14/24 17:00 04/15/24 12:59 1 GM Pantoprazole Sodium 40 mg BID IV 04/14/24 22:00 04/15/24 10:33 40 MG Magnesium Oxide 400 mg DAILY PO 04/15/24 10:00 04/15/24 10:33 400 MG Multivitamins 1 tab DAILY PO 04/15/24 10:00 04/15/24 10:33 1 TAB Treatment plan discussed: Family Medication adjusted: Yes Diagnosis: unspecified mood disorder, alcohol abuse Plan : patient denies Si/Hi. He and agree with plan to start antidepressant to improve mood. recommend Mirtazapine 15mg, 1 tab po before bedtime to improve mood, sleep and appetite. Pt may discharge home after medical clearance. Please provide outpatient resources for follow up and medication management. History of Present Illness Reason for Consult : Hx of depression and anxiety HPI : This is a 53-year-old male with hx of depression and anxiety, he presented to the hospital for generalized weakness. Patient is evaluated via telepsychiatry with Archana at bedside. He reports moving locally about 1.5 years ago and since then has been unable to find employment. He had hx of anxiety prior to this, but started to feel more depressed, hopeless and appetite also decreased. He was used to working hard and previously employed with [employer] for 20years. He denies thoughts of not wanting to live. He denies suicidal/homicidal ideation. He denies auditory/visual hallucinations or paranoia. The last 8 months, decreased appetite and more recently, having trouble sleeping. No hx of mary carmen or psychosis in the past. says anxiety is triggered by financial stressors and their son who constantly asks for things. He also becomes anxious in the car with long drives, often feeling nauseous or vomiting. Past Psychiatric History : He saw his PCP in early 2023 who prescribed Zoloft and Atarax. he had side effect of GI upset and only used for a couple weeks. He denies current outpatient mental health follow up or other medication trials. He denies prior psych admissions, holds or suicide attempts. Past Medical History : Social History : He lives with and son. He is not employed. He drinks alcohol usually daily, about 1-3 tall cans per day and some shots of "Jagermeister " He smokes half a pack per day. He denies other substance use. His son has anxiety and depression. He was adopted, no other known family history. INDY KUMAR DNP Apr 15, 2024 17:50
--- NOTE | 2024-04-15 19:49 | DVHPNRES ---
Progress Note Date Seen: Apr 15, 2024 Resident Creating Document: BERTRAM CONTEH RESIDENT Has the PT tested + for MRSA If YES, has PT been informed?: No Medical Necessity Reason Pt with a Central, PICC or Fol: No Medical Necessity Reason ALCOHOL WITHDRAWAL Hypokalemia Subjective Review of Systems This is a 53-year-old male with history of alcohol abuse presented to the ED with a chief complaints of generalized weakness. According to the patient, he has been experiencing shaking chills, severe loss of appetite and severe generalized weakness for the past 2 weeks. Patient notes that he feels like he has no energy left at all and sustained a fall 2 days ago where he hit his head. He had 3 episodes of vomiting, no blood, mainly vomitus containing food particles. According the patient, he has been binge drinking for the past two weeks. Patient denied any recent travel out of the country, he is in monogamous relationship with his and he lives at home. Patient moved to [place] 8 months ago. And also notes weight loss in the last 4-6 weeks. White cell count was noted 12.9, lactic acid 5.1 AST level was 266, ALT was 46. At the time of my visit, patient passed a black tarry stool but he didn not mention any evidence of hematemesis. He was very unsteady but alert and oriented. Chest x-ray, CT head were grossly unremarkable ultrasound of the gallbladder revealed gallbladder sludge without convincing evidence of acute cholecystitis. CT chest/abdomen/pelvis showed Moderate hepatomegaly with diffuse fatty infiltration of the liver.Moderate distention of the gallbladder without evidence of acute cholecystitis. Mild centrilobular emphysematous changes in the lungs with subtle fibrotic bands in the inferior lingular segment and right lower lobe.No acute infiltrates or effusions Scattered diverticulosis of the sigmoid colon without evidence of diverticulitis. Omental fat-containing bilateral inguinal hernia, left more than right Borderline prostatomegaly with parenchymal calcifications.Subtle atherosclerotic calcification of the abdominal aorta and common iliac arteries, with normal contrast opacification and no aneurysm or dissection. PN: 04/10/2024 Patient is seen and examined this morning at bedside. He is alert oriented however his in [place] where he is hallucinating imagining family members with him or girlfriend and by the bedside. He has been question he is able to respond he is able to answer some questions but every now and then patient did into hallucination imagining what is not present. Overnight patient was noted to have tachycardic a low-potassium EKG was done which revealed sinus tachycardia on the EKG reading is showed QT prolongation of 527 however with irais calculation was 470. He is toxicology reports came back and patient was positive for fentanyl. Blood pressure is well under control at this moment and monitor. Patient's symptoms are likely due to alcohol withdrawal. Patient is also noted to have melena stool. Tumor marker CA19-9:126 H (0-35). GI is on the case and are considering MRCP. Chemistry improved today PN: 04/12/2024: patient is seen and examined by the bedside. Patient was sleeping at the time of my visit. There was a sitter in the room with the patient who mentioned to me that the night nurse said the patient seemed a lot more confused yesterday than he did not on previous days. And according to the nurse, when his family is around patient is orient, but later he was acting very confused. He is currently on lactulose and also he is on the withdrawal protocol. Ammonia level 25. K:2.6. mag 1.8.A CT of the head today did not reveal any abnormalities no bleeding noted no herniations noted no abnormalities found. Patient is currently on IV hydration creatinine kinase 283 not to the point of rhabdomyolysis we will keep monitoring. PN: 04/13/2024: patient is seen and examined by the bedside. He was wake,but thinks that he is home. He had to be oriented that he is in the hospital. He knows the name of his and children. There was a sitter in the room with the patient. No major events reported. Reduced dose of lactulose as Ammonia is 25. K:2.9. mag 1.8. A CT of the head today did not reveal any abnormalities no bleeding noted no herniations noted no abnormalities found. Patient is currently on IV hydration creatinine . He has a alvarenga's catheter. Urine is very concentrated,very orange in color. PN: 04/14/2024: Patient is seen and examined today. He seemed to a little altered and he has been in and out. Sometimes, he answers questions appropriately other times he does not. Patient was kept NPO this morning because he was scheduled for EGD today. We decreased patient's Librium from 3 times a day to 2 times a day labs this morning showed normal sodium level potassium level was decreased to 3.4 potassium was replaced. PT evaluation on board. This afternoon patient had EGD. S/p EGD patient had elevated heart rate of 110, respiratory rate of 37. I was called to the recovery room as patient had changes on ekg, tachypnea and tachycardia. Ordered stat ABG , chest xray and troponin, and furosemide 20 mg. Chest x-ray showed Left basilar atelectasis. Hypoexpanded lung ; ABG normal and troponin was 14. PN 122/2024: patient is more alerted and oriented. He wants to go home. He saw a physical therapist today. But weak. He also seen by psychiatrist ( [facility] RO[facility] NURSE) today Who recommend Mirtazapine 15mg, 1 tab po before bedtime to improve mood, sleep and appetite. He received IV lasix 40 mg today. Over he is doing better. He also had a swallow evaluation and passed. No evidence of aspiration or concerns for aspiration. Objective vital signs Vital Sign Date Time Temp Pulse Resp B/P (MAP) Pulse Ox O2 Delivery O2 Flow Rate FiO2 04/15/24 17:00 98.4 93 20 139/95 (110) 96 98.4 04/14/24 20:00 Nasal Cannula* 6 44 Total Intake and Output 04/14/24 04/14/24 04/15/24 15:00 23:00 07:00 Intake Total 100 ml 0 ml 905 ml Output Total 210 ml 250 ml Balance 100 ml -210 ml 655 ml medications Current Medications Medications Dose Ordered Sig/Riccardo Route Start Time Stop Time Status Last Admin Dose Admin Labetalol HCl 5 mg Q2HPRN PRN IV 04/09/24 09:30 04/14/24 12:43 5 MG Ondansetron HCl 4 mg Q4HPRN PRN IV 04/10/24 12:30 Sodium Chloride 1,000 ml @ 100 mls/hr Q10H IV 04/10/24 12:30 Hold 04/13/24 02:11 100 MLS/HR Lactulose 30 ml DAILY PO 04/13/24 10:00 04/15/24 10:33 30 ML Enoxaparin Sodium 40 mg DAILY SC 04/13/24 10:00 04/15/24 10:32 40 MG Lorazepam 0.5 mg Q4HP PRN IV 04/13/24 15:45 Chlordiazepoxide HCl 10 mg BID PRN PO 04/14/24 08:15 Thiamine HCl 100 mg DAILY PO 04/15/24 10:00 04/15/24 10:33 100 MG Folic Acid 1 mg DAILY PO 04/15/24 10:00 04/15/24 10:33 1 MG Sucralfate 1 gm QID@0600,1130,1700,2200 PO 04/14/24 17:00 04/15/24 18:29 1 GM Pantoprazole Sodium 40 mg BID IV 04/14/24 22:00 04/15/24 10:33 40 MG Magnesium Oxide 400 mg DAILY PO 04/15/24 10:00 04/15/24 10:33 400 MG Multivitamins 1 tab DAILY PO 04/15/24 10:00 04/15/24 10:33 1 TAB Examination General Appearance: Alert and oriented HEENT: Atraumatic, PERRLA, EOMI Respiratory: Mild congestion Cardiovascular: Regular rate, Normal S1, Normal S2 Abdominal: able to swallow, Normal bowel sounds (Abdominal tenderness to palpation), passed swallow evaluation Extremities: No clubbing, No cyanosis, No edema Skin: No rashes, No breakdown, Neuro: Normal speech, but altered Psych/Mental Status: Unable to assess laboratory and microbiology Laboratory Tests 04/15/24 05:12 Test 04/15/24 05:12 Range/Units Serum Glucose 85 74-106 mg/dL Microbiology Date/Time Source Procedure Growth Status 04/10/24 02:07 Voided Urine Urine Culture - Final Complete 04/08/24 18:28 Blood Blood Culture - Final NO GROWTH AFTER 5 DAYS OF INCUBATION. Complete Problem List/Assessment/Plan Problem List/Assessment/Plan Assessment Alcohol withdrawal, CIWA score 19 on admission Metabolic encephalopathy Acute blood Anemia rule out GI Bleed Melena Macrocytic anemia Generalized weakness s/p mechanical fall 2 days ago Likely alcoholic Lactic acidosis Malnutrition Thrombocytopenia Hyponatremia Transaminitis Hyperbilirubinemia Hypertensive urgency Hypokalemia hepatomegaly with diffuse fatty infiltration of the liver. Scattered diverticulosis without evidence of diverticulitis. Omental fat-containing bilateral inguinal hernia, left more than right. Hypokalemia hyperammonemia--> resolved Dehydration Depression Fentanyl abuse (UDS positive) major depression ( new, 04/15/2024) Plan Continue Banana bag (NS with multivitamins)stop after 3 days Decrease Ativan to .5mg daily 10 mg Chlordiazepoxide BID IV labetalol 5mg q2hrs prn Clonidine 0.1 bid prn Monitor and replace electrolytes Monitor stool and hgb stable Maintenance fluid GI following PT evaluation Furosemide Code status: full code Goal of care discussed for more than 25 minute Case and plan discussed with Dr. Horton Plan discussed with: Patient Date of Service: Apr 15, 2024 Billing Provider: DEMI HORTON MD Common Visit Codes: [id number] INP/OBS CARE(HIGH) BERTRAM CONTEH RESIDENT Apr 15, 2024 19:49 DEMI HORTON MD Apr 16, 2024 19:26
[2024-04-15] MEDS: LACTULOSE 20Gm/30ML SOLN PO SCH (20:16)
[2024-04-15] MEDS: MELATONIN 5 MG TAB PO ONE (21:46)
[2024-04-15] MEDS: ACETAMINOPHEN 325 MG TAB PO ONE (21:47)
--- NOTE | 2024-04-15 22:14 | DVHPN2 ---
Progress Note - Dictate Date Seen: Apr 15, 2024 Has the PT tested + for MRSA If YES, has PT been informed?: No Medical Necessity Reason Pt with a Central, PICC or Fol: No Subjective No new complaints; still lethargic and altered Patient is sleeping comfortably No active GI bleeding is reported Sitter said patient ate about 20% of his meals and was having some trouble swallowing liquids Swallow evaluation was completed and patient can have mechanical soft diet with nectar thickened fluids vital signs Vital Sign Date Time Temp Pulse Resp B/P (MAP) Pulse Ox O2 Delivery O2 Flow Rate FiO2 04/15/24 21:47 98.0 04/15/24 17:00 93 20 139/95 (110) 96 04/15/24 08:00 Nasal Cannula* 6 44 Total Intake and Output 04/14/24 04/14/24 04/15/24 15:00 23:00 07:00 Intake Total 100 ml 0 ml 905 ml Output Total 210 ml 250 ml Balance 100 ml -210 ml 655 ml medications Current Medications Medications Dose Ordered Sig/Riccardo Route Start Time Stop Time Status Last Admin Dose Admin Labetalol HCl 5 mg Q2HPRN PRN IV 04/09/24 09:30 04/14/24 12:43 5 MG Ondansetron HCl 4 mg Q4HPRN PRN IV 04/10/24 12:30 Sodium Chloride 1,000 ml @ 100 mls/hr Q10H IV 04/10/24 12:30 Hold 04/13/24 02:11 100 MLS/HR Enoxaparin Sodium 40 mg DAILY SC 04/13/24 10:00 04/15/24 10:32 40 MG Lorazepam 0.5 mg Q4HP PRN IV 04/13/24 15:45 Chlordiazepoxide HCl 10 mg BID PRN PO 04/14/24 08:15 Thiamine HCl 100 mg DAILY PO 04/15/24 10:00 04/15/24 10:33 100 MG Folic Acid 1 mg DAILY PO 04/15/24 10:00 04/15/24 10:33 1 MG Sucralfate 1 gm QID@0600,1130,1700,2200 PO 04/14/24 17:00 04/15/24 21:47 1 GM Pantoprazole Sodium 40 mg BID IV 04/14/24 22:00 04/15/24 21:47 40 MG Magnesium Oxide 400 mg DAILY PO 04/15/24 10:00 04/15/24 10:33 400 MG Multivitamins 1 tab DAILY PO 04/15/24 10:00 04/15/24 10:33 1 TAB Lactulose 30 ml BID PO 04/15/24 19:45 04/15/24 21:47 30 ML objective General Appearance: Alert, Oriented X3, Cooperative, no distress HEENT: Atraumatic, PERRLA, EOMI Respiratory: Clear to auscultation, Normal air movement Cardiovascular: Regular rate, Normal S1, Normal S2 Abdominal: Normal bowel sounds nontender nondistended Extremities: No clubbing, No cyanosis, No edema Skin: No rashes, No breakdown Neuro: Normal speech, Other (Resting tremors noted in bilateral upper extremities) laboratory and microbiology Laboratory Tests 04/15/24 05:12 Test 04/15/24 05:12 Range/Units Serum Glucose 85 74-106 mg/dL Problems(with codes): (1) Duodenal bulb ulcer (2) Gastroduodenitis (3) Arthralgia (4) Sepsis (5) Elevated CA 19-9 level (6) Elevated carcinoembryonic antigen (CEA) Prognosis Plan Patient's head CT was negative Patient has a history of anxiety and depression sometimes reactive, Oncology consult appreciated, patient has been started on mirtazapine Continue Protonix 40 mg p.o. twice a day Carafate 1 g p.o. twice a day Repeat MRI of the abdomen did not show any evidence of pancreatic mass Consider elective colonoscopy for colon cancer screening when medically stabilized Consider referral higher level of care in the future for a possible endoscopic ultrasound Prognosis remains guarded Plan discussed with: Patient, Other (Nurse) STAR EDWARD MD Apr 15, 2024 22:14
[2024-04-16] VITALS (9 sets, daily range): BP systolic 93–154; BP diastolic 66–95; PULSE 93–116; RESP 16–20; TEMP 97.8–98.7; O2SAT 92–98
[2024-04-16 10:11] LABS: Basophils # (auto) 0.1 10 ^3/uL (0-0.2); Eosinophils # (auto) 0.1 10 ^3/uL (0-0.8); Eosinophils % (auto) 0.6 % (0.0-7.0); Hemoglobin 11.6 g/dL (13.5-17.5); Lymphocytes # (auto) 0.9 10 ^3/uL (0.4-5.4); Monocytes # (auto) 0.8 10 ^3/uL (0-1.3); Nucleated Red Blood Cells % 0.1 %; Platelet Count (auto) 223 10^3/uL (140-450); White Blood Cell 8.3 10^3/uL (4.4-10.8)
[2024-04-16 10:14] LABS: Basophils % (auto) 0.9 % (0.0-2.0); Hematocrit 34.3 % (41.0-53.0); Mean Corpuscular Hemoglobin 35.2 pg (28.0-32.0); Mean Corpuscular Hgb Conc. 33.7 g/dL (32.0-36.0); Mean Corpuscular Volume 104.5 fL (80.0-100.0); Monocytes % (auto) 9.8 % (0.0-12.0); Neutrophils # (auto) 6.5 10 ^3/uL (1.6-8.6); Neutrophils % (auto) 77.7 % (37.0-80.0); Red Blood Cells 3.28 10^6/uL (4.5-5.90); Red Cell Distribution Width 13.7 % (11.8-14.3)
[2024-04-16 10:35] LABS: Alanine Aminotransferase 33 U/L (7-40); Albumin 3.3 g/dL (3.2-4.8); Anion Gap 5 (5-15); BUN/Creatinine Ratio 9.1 (10.0-20.0); Carbon Dioxide 31 mmol/L (20-31); Chloride 103 mmol/L (98-107); Sodium 139 mmol/L (136-145)
[2024-04-16 10:41] LABS: Alkaline Phosphatase 177 U/L (46-116); Aspartate Aminotransferase 80 U/L (13-40); Bilirubin, Total 2.2 mg/dL (0.2-1.0); Blood Urea Nitrogen 5 mg/dL (9-23); Calcium 8.5 mg/dL (8.7-10.4); Glucose 129 mg/dL (74-106); Total Protein 5.6 g/dL (5.7-8.2)
--- NOTE | 2024-04-16 13:04 | DVHPN2 ---
Progress Note Date Seen: Apr 16, 2024 Resident Creating Document: BRANDO DUQUE RESIDENT Has the PT tested + for MRSA If YES, has PT been informed?: No Medical Necessity Reason Pt with a Central, PICC or Fol: No Objective vital signs Vital Sign Date Time Temp Pulse Resp B/P (MAP) Pulse Ox O2 Delivery O2 Flow Rate FiO2 04/16/24 12:35 98.6 116 18 93/66 (75) 92 98.6 04/15/24 20:00 Nasal Cannula* 6 44 Total Intake and Output 04/15/24 04/15/24 04/16/24 15:00 23:00 07:00 Intake Total 700 ml 200 ml Output Total 1200 ml 350 ml Balance -500 ml -150 ml medications Current Medications Medications Dose Ordered Sig/Riccardo Route Start Time Stop Time Status Last Admin Dose Admin Labetalol HCl 5 mg Q2HPRN PRN IV 04/09/24 09:30 04/14/24 12:43 5 MG Ondansetron HCl 4 mg Q4HPRN PRN IV 04/10/24 12:30 Enoxaparin Sodium 40 mg DAILY SC 04/13/24 10:00 04/16/24 10:35 40 MG Lorazepam 0.5 mg Q4HP PRN IV 04/13/24 15:45 Thiamine HCl 100 mg DAILY PO 04/15/24 10:00 04/16/24 10:34 100 MG Folic Acid 1 mg DAILY PO 04/15/24 10:00 04/16/24 10:34 1 MG Sucralfate 1 gm QID@0600,1130,1700,2200 PO 04/14/24 17:00 04/16/24 11:32 1 GM Pantoprazole Sodium 40 mg BID IV 04/14/24 22:00 04/16/24 10:33 40 MG Magnesium Oxide 400 mg DAILY PO 04/15/24 10:00 04/16/24 10:34 400 MG Multivitamins 1 tab DAILY PO 04/15/24 10:00 04/16/24 10:34 1 TAB Lactulose 30 ml BID PO 04/15/24 19:45 04/16/24 10:34 30 ML Examination GENERAL APPEARANCE: Well developed, well nourished, alert and cooperative, and appears to be in no acute distress. Improved. HEENT: WNL NECK: Neck supple, non-tender without lymphadenopathy, masses or thyromegaly. CARDIAC: Normal S1 and S2. No S3, S4 or murmurs. Rhythm is regular. There is no peripheral edema, cyanosis or pallor. Extremities are warm and well perfused. Capillary refill is less than 2 seconds. No carotid bruits. LUNGS: Clear to auscultation and percussion without rales, rhonchi, wheezing or diminished breath sounds. ABDOMEN: Positive bowel sounds. Soft, nondistended, nontender. No guarding or rebound. No masses. Mild epigastric tenderness. MSK: WNL NEUROLOGICAL: CN II-XII intact. Strength and sensation symmetric and intact throughout. Reflexes 2+ throughout. Cerebellar testing normal. SKIN: Skin normal color, texture and turgor with no lesions or eruptions. PSYCHIATRIC: Stable laboratory and microbiology Laboratory Tests 04/16/24 09:40 Test 04/16/24 09:40 Range/Units Serum Glucose 129 H 74-106 mg/dL Microbiology Date/Time Source Procedure Growth Status 04/10/24 02:07 Voided Urine Urine Culture - Final Complete 04/08/24 18:28 Blood Blood Culture - Final NO GROWTH AFTER 5 DAYS OF INCUBATION. Complete Labs and/or images reviewed: Labs reviewed by me, Image(s) reviewed by me Problem List/Assessment/Plan Problem List/Assessment/Plan Reasons for consultation: elevated tumor marker Hospitalization Summary: Mr. Lindsey, a 53-year-old male with a history of alcohol abuse presented with generalized weakness, shaking chills, severe loss of appetite, and vomiting after binge drinking for two weeks. He sustained a fall, resulting in a head injury, and reported weight loss over the past 4-6 weeks. His CIWA score increased to 19, and he is currently on CIWA and Librium protocols. Examination revealed hepatomegaly, gallbladder sludge, mild emphysematous changes in the lungs, and other findings. He experienced hallucinations, tachycardia, and low potassium levels, with an EKG showing QT prolongation. Toxicology was positive for fentanyl. His symptoms are likely due to alcohol withdrawal, and GI was consulted with elevated CA-19-9 , CEA and black tarrry stool, considering MRCP for further evaluation. Social history remarkable with about 30 pack year smoking and alcohol abuse. Prior to admission patient lived home with family and functioned independently and PCP is Dr. Burrows. Since then blood culture negative, H&H stable, ammonia unremarkable, FOBT positive, HIV and hepatitis negative, INR WNL, BUN is trending down patient is stable to is to 1 AST to ALT. In-hospital MRCP unremarkable. GI Assessment/impression: #Duodenal bulb ulcer #Gastroduodenitis # likely upper GI bleed, FOBT positive epigastric pain with alcohol abuse # MRI of the abdomen did not show any evidence of pancreatic mass # Alcoholic hepatitis # Gallbladder hydrops # Gallbladder sludge # hepatobiliary dilatation, alk-phos high, CK 180 # Moderate hepatomegaly with diffuse fatty liver. # Scattered diverticulosis of the sigmoid colon without evidence of diverticulitis. # Omental fat-containing bilateral inguinal hernia, nonincarcerated # mechanical fall 2 days ago likely due to alcohol intoxication # Transaminitis, typical to use to 1 pattern likely due to alcoholic hepatitis # Hyperbilirubinemia # CA 19-9, CEA significantly high but MRCP unremarkable. - # alcohol withdrawal # lactic acidosis # Mild centrilobular emphysematous changes in the lungs # Borderline prostatomegaly with parenchymal calcifications. # atherosclerotic calcification of the abdominal aorta and common iliac arteries # Degenerative disc disease at L5-S1 with vacuum disc phenomenon and moderate bilateral foraminal narrowing. # Hypertensive urgency, improved # recurrent Hypokalemia # high chance of refeeding syndrome # Macrocytic anemia # Thrombocytopenia GI Plan: # Labs: Trend H&H, daily CMP, Outpatient repeat CA 19 9. # Medications: H&H stable pantoprazole 40 mg po bid. carafate 1 g po bid. continue mitrazapine. # Diet: Alcohol abstinence, is most important in this patient. Additionally please avoid NSAIDs, caffeine, spicy, highly acidic and caustic diets. # Procedure: Consider elective colonoscopy for colon cancer screening when medically stabilized # Consider referral higher level of care in the future for a possible endoscopic ultrasound /EUS. Prognosis remains guarded. # serial abdominal examination and outpatient follow up with Dr. Cazares. Outpatient repeat CA 19 9. Thank you so much for the opportunity to consult on your patient. GI team will follow the patient. In case of any questions or concerns please feel free to reach out. Case an action plan discussed with Dr. Ping Cazares. Complex care planning needed total 47 minutes of detailed discussion. The patient and caregiver team agreed to the plan. Plan discussed with: Patient, Other BRANDO DUQUE RESIDENT Apr 16, 2024 13:04
[2024-04-16] MEDS ORDERED: NIFEdipine ER 30 MG TAB PO ONE (16:30)
--- NOTE | 2024-04-16 16:49 | DVHPNRES ---
Progress Note Date Seen: Apr 16, 2024 Resident Creating Document: BERTRAM CONTEH RESIDENT Has the PT tested + for MRSA If YES, has PT been informed?: No Medical Necessity Reason Pt with a Central, PICC or Fol: No Medical Necessity Reason weak needs PT Subjective Review of Systems This is a 53-year-old male with history of alcohol abuse presented to the ED with a chief complaints of generalized weakness. According to the patient, he has been experiencing shaking chills, severe loss of appetite and severe generalized weakness for the past 2 weeks. Patient notes that he feels like he has no energy left at all and sustained a fall 2 days ago where he hit his head. He had 3 episodes of vomiting, no blood, mainly vomitus containing food particles. According the patient, he has been binge drinking for the past two weeks. Patient denied any recent travel out of the country, he is in monogamous relationship with his and he lives at home. Patient moved to [place] 8 months ago. And also notes weight loss in the last 4-6 weeks. White cell count was noted 12.9, lactic acid 5.1 AST level was 266, ALT was 46. At the time of my visit, patient passed a black tarry stool but he didn not mention any evidence of hematemesis. He was very unsteady but alert and oriented. Chest x-ray, CT head were grossly unremarkable ultrasound of the gallbladder revealed gallbladder sludge without convincing evidence of acute cholecystitis. CT chest/abdomen/pelvis showed Moderate hepatomegaly with diffuse fatty infiltration of the liver.Moderate distention of the gallbladder without evidence of acute cholecystitis. Mild centrilobular emphysematous changes in the lungs with subtle fibrotic bands in the inferior lingular segment and right lower lobe.No acute infiltrates or effusions Scattered diverticulosis of the sigmoid colon without evidence of diverticulitis. Omental fat-containing bilateral inguinal hernia, left more than right Borderline prostatomegaly with parenchymal calcifications.Subtle atherosclerotic calcification of the abdominal aorta and common iliac arteries, with normal contrast opacification and no aneurysm or dissection. PN: 04/10/2024 Patient is seen and examined this morning at bedside. He is alert oriented however his in OR where he is hallucinating imagining family members with him or girlfriend and by the bedside. He has been question he is able to respond he is able to answer some questions but every now and then patient did into hallucination imagining what is not present. Overnight patient was noted to have tachycardic a low-potassium EKG was done which revealed sinus tachycardia on the EKG reading is showed QT prolongation of 527 however with irais calculation was 470. He is toxicology reports came back and patient was positive for fentanyl. Blood pressure is well under control at this moment and monitor. Patient's symptoms are likely due to alcohol withdrawal. Patient is also noted to have melena stool. Tumor marker [id number] H (0-35). GI is on the case and are considering MRCP. Chemistry improved today PN: 04/12/2024: patient is seen and examined by the bedside. Patient was sleeping at the time of my visit. There was a sitter in the room with the patient who mentioned to me that the night nurse said the patient seemed a lot more confused yesterday than he did not on previous days. And according to the nurse, when his family is around patient is orient, but later he was acting very confused. He is currently on lactulose and also he is on the withdrawal protocol. Ammonia level 25. K:2.6. mag 1.8.A CT of the head today did not reveal any abnormalities no bleeding noted no herniations noted no abnormalities found. Patient is currently on IV hydration creatinine kinase 283 not to the point of rhabdomyolysis we will keep monitoring. PN: 04/13/2024: patient is seen and examined by the bedside. He was wake,but thinks that he is home. He had to be oriented that he is in the hospital. He knows the name of his and children. There was a sitter in the room with the patient. No major events reported. Reduced dose of lactulose as Ammonia is 25. K:2.9. mag 1.8. A CT of the head today did not reveal any abnormalities no bleeding noted no herniations noted no abnormalities found. Patient is currently on IV hydration creatinine [id number]. He has a alvarenga's catheter. Urine is very concentrated,very orange in color. PN: 04/14/2024: Patient is seen and examined today. He seemed to a little altered and he has been in and out. Sometimes, he answers questions appropriately other times he does not. Patient was kept NPO this morning because he was scheduled for EGD today. We decreased patient's Librium from 3 times a day to 2 times a day labs this morning showed normal sodium level potassium level was decreased to 3.4 potassium was replaced. PT evaluation on board. This afternoon patient had EGD. S/p EGD patient had elevated heart rate of 110, respiratory rate of 37. I was called to the recovery room as patient had changes on ekg, tachypnea and tachycardia. Ordered stat ABG , chest xray and troponin, and furosemide 20 mg. Chest x-ray showed Left basilar atelectasis. Hypoexpanded lung ; ABG normal and troponin was 14. PN 122: patient is more alerted and oriented. He wants to go home. He saw a physical therapist today. But weak. He also seen by psychiatrist ( [employer]) today Who recommend Mirtazapine 15mg, 1 tab po before bedtime to improve mood, sleep and appetite. He received IV lasix 40 mg today. Over he is doing better. He also had a swallow evaluation and passed. No evidence of aspiration or concerns for aspiration. PN: 04/16/2024: Patient seen and examined by the bed side. I help patient get to the edge of the bed. He is awake, alert and oriented. Will d/c all medication today and have only ativan .5mg prn. Will continue PT assessment at least twice a day. I spoke to the and niece about the current state of the patient. Mentioned the possibility of a rehabilitation. I had mentioned that the patient will benefit from SNF for at least 2 weeks to regain his strength. They ([facility] and ) think the rehab will be a good idea. Objective vital signs Vital Sign Date Time Temp Pulse Resp B/P (MAP) Pulse Ox O2 Delivery O2 Flow Rate FiO2 04/16/24 15:51 97.8 95 16 154/95 (114) 95 97.8 04/15/24 20:00 Nasal Cannula* 6 44 Total Intake and Output 04/15/24 04/15/24 04/16/24 15:00 23:00 07:00 Intake Total 700 ml 200 ml Output Total 1200 ml 350 ml Balance -500 ml -150 ml medications Current Medications Medications Dose Ordered Sig/Riccardo Route Start Time Stop Time Status Last Admin Dose Admin Labetalol HCl 5 mg Q2HPRN PRN IV 04/09/24 09:30 04/14/24 12:43 5 MG Ondansetron HCl 4 mg Q4HPRN PRN IV 04/10/24 12:30 Enoxaparin Sodium 40 mg DAILY SC 04/13/24 10:00 04/16/24 10:35 40 MG Lorazepam 0.5 mg Q4HP PRN IV 04/13/24 15:45 Thiamine HCl 100 mg DAILY PO 04/15/24 10:00 04/16/24 10:34 100 MG Folic Acid 1 mg DAILY PO 04/15/24 10:00 04/16/24 10:34 1 MG Sucralfate 1 gm QID@0600,1130,1700,2200 PO 04/14/24 17:00 04/16/24 11:32 1 GM Pantoprazole Sodium 40 mg BID IV 04/14/24 22:00 04/16/24 10:33 40 MG Magnesium Oxide 400 mg DAILY PO 04/15/24 10:00 04/16/24 10:34 400 MG Multivitamins 1 tab DAILY PO 04/15/24 10:00 04/16/24 10:34 1 TAB Lactulose 30 ml BID PO 04/15/24 19:45 04/16/24 10:34 30 ML Examination General Appearance: Alert and oriented, wants to walk, No need for oxygen HEENT: Atraumatic, PERRLA, EOMI Respiratory: CTAB Cardiovascular: Regular rate, Normal S1, Normal S2 Abdominal: able to swallow, Normal bowel sounds (Abdominal tenderness to palpation), passed swallow evaluation Extremities: No clubbing, No cyanosis, No edema Skin: No rashes, No breakdown, Neuro: Normal speech, but altered Psych/Mental Status: Unable to assess laboratory and microbiology Laboratory Tests 04/16/24 09:40 Test 04/16/24 09:40 Range/Units Serum Glucose 129 H 74-106 mg/dL Microbiology Date/Time Source Procedure Growth Status 04/10/24 02:07 Voided Urine Urine Culture - Final Complete 04/08/24 18:28 Blood Blood Culture - Final NO GROWTH AFTER 5 DAYS OF INCUBATION. Complete Problem List/Assessment/Plan Problem List/Assessment/Plan Assessment Alcohol withdrawal, CIWA score 19 on admission Metabolic encephalopathy Acute blood Anemia rule out GI Bleed Melena Macrocytic anemia Generalized weakness s/p mechanical fall 2 days ago Likely alcoholic Lactic acidosis Malnutrition Thrombocytopenia Hyponatremia Transaminitis Hyperbilirubinemia Hypertensive urgency hepatomegaly with diffuse fatty infiltration of the liver. Scattered diverticulosis without evidence of diverticulitis. Omental fat-containing bilateral inguinal hernia, left more than right. Hypokalemia hyperammonemia--> resolved Dehydration Depression Fentanyl abuse (UDS positive) Major depression ( new, 04/15/2024) Weak with unsteady gaits. Working with PT to regain strength Plan Decrease Ativan to .5mg PRN Monitor and replace electrolytes daily Monitor stool and hgb stable GI following Continue PT activities Clonidine 0.1 bid stop Maintenance fluid: stopped Furosemide Stopped 10 mg Chlordiazepoxide Stop Continue Banana bag (NS with multivitamins)stop after 3 days STOP Code status: full code Goal of care discussed for more than 25 minute Case and plan discussed with Dr. Horton Plan discussed with: Patient, Spouse My Orders My Orders Orders - BERTRAM CONTEH RESIDENT Procedure Category Date Status Time Lactulose Oral PHA 04/15/24 In Process 19:45 Date of Service: Apr 16, 2024 Billing Provider: DEMI HORTON MD Common Visit Codes: [id number] INP/OBS CARE(HIGH) BERTRAM CONTEH RESIDENT Apr 16, 2024 16:49 DEMI HORTON MD Apr 16, 2024 19:26
[2024-04-16] MEDS: MAGNESIUM SULFATE 1GM/100ML 100 ML IV SCH (18:00)
[2024-04-16] MEDS: POTASSIUM CHL 20 Meq TABLET PO ONE (18:54)
--- NOTE | 2024-04-16 19:46 | DVHINCON2 ---
Date of service: Apr 16, [address] Cazares Reason for Consultation ALOC, possible CVA History of Present Illness Mr. Lindsey is a 53 years old right-handed gentleman with a history of anxiety, alcoholism, he was admitted on 04/08/2024 to the [facility] with a chief complaint of generalized weakness, low appetite. At this time, he is awake, oriented to person place, good social skills, the history is obtained from his , I have reviewed the chart and talked to his nurse Over several days before he came to the hospital, the patient complained of low appetite, general weakness, he was had nausea, vomiting, but mentally the patient was normal. According to his , the patient had problem with finding a job recently, and financially he was in trouble In the hospital, the patient was found to have fluctuating mental status/confusion, abnormal liver function tests, thrombocytopenia, macrocytic anemia He was no history of depression UDS, 04/10/2024: Fentanyl, benzo Plasma alcohol, 04/08/2024:7.6 Urinalysis, 04/10/2024: WBC: 1, urine leukocyte esterase: Negative WBC/HB/PLT/MCV, 04/16/24:8 0.3/11.6/223/104.5 BMP, 04/16/2024: Unremarkable HGB A1c, 03/2019 5:5.7 Lactic acid, 04/08/2024: 5.1, 5.9 TG/HDL/LDL/HDL, 04/09/2024: 4.3/193/38/229, 04/14/24: 3.1/100/34/179, 0 04/16/2024: 2.2/80/33/177 Hepatitis panel, 04/08/2024: Negative Ammonia, 04/10/2024: 45, 04/15/2024: 43 Vitamin B12, 04/15/24: 1816 CT head, 04/08/2024: No acute intracranial process. CT head, 04/12/2024: No evidence of acute intracranial abnormality Past Medical History Anxiety Past Surgical History No major surgeries Family History He is adopted Social History He smokes tobacco, he has a long history of daily alcohol, 2-3 tall cans a day, the history of drug abuse Allergies: Coded Allergies: Penicillins (Verified Allergy, Unknown, 03/25/24) Home Meds Active Scripts Methylprednisolone (Medrol Dosepak) 4 Mg Roman, 4 MG PO UD, #21 TAB UAD Prov:DEVENDRA VANESSA 03/25/24 Reported Medications Diclofenac Sodium (Diclofenac Sodium Dr) 75 Mg Tab, 1 TAB PO BID 04/10/24 Current Medications Current Medications Medications (Trade) Dose Ordered Sig/Riccardo Route PRN Reason Start Time Stop Time Status Last Admin Lactulose 30 ml BID PO 04/15/24 19:45 04/16/24 18:59 DC 04/16/24 10:34 Magnesium Sulfate/ Dextrose 100 ml @ 100 mls/hr Q1HR IV 04/16/24 17:00 04/16/24 18:59 DC 04/16/24 18:53 Mirtazapine (Remeron Tablet) 15 mg HS PO 04/16/24 22:00 Review of Systems As above, the other systems are negative Vital Signs Vital Signs Date Time Temp Pulse Resp B/P (MAP) Pulse Ox O2 Delivery O2 Flow Rate FiO2 04/16/24 19:00 106 134/86 (102) 04/16/24 15:51 97.8 16 95 97.8 04/16/24 08:00 Nasal Cannula* 2 28 Physical Exam GENERAL EXAM: General: the patient is well developed and nourished. No acute distress. HEENT: Normocephalic, neck is supple, no carotid bruits. No mass. RESPIRATORY: Normal respiratory effort with symmetrical lung expansion. Lungs clear to auscultation. CARDIOVASCULAR: Regular rate and rhythm with no murmurs. S1, S2. ABDOMEN: Soft, nontender, normal bowel sound NEUROLOGICAL: MENTAL STATUS: Awake and alert. Oriented to person, place, SPEECH, LANGUAGE, HIGHER CORTICAL FUNCTION: no aphasia or dysathria. CRANIAL NERVES: #2: Intact visual barrett to confrontation. The optic discs were sharp. #3,4,6: Pupils are equal, round and reactive. EOMs full and conjugate. Mild bilateral gaze evoked nystagmus. #5: Facial sensation intact in all three divisions bilaterally. #7: Facial muscles symmetrical and strength intact. #8: Hearing grossly normal to voice. #9,10: Uvula and soft palate rise in the midline. Swallow and voice are normal. #11: Trapezius and sternomastoid strength intact bilaterally. #12: Tongue midline. No fasciculations or atrophy. SENSATION: Sensation to touch and pinprick is normal. MOTOR: Normal tone in the upper and lower extremity. Normal muscle bulk. No fasciculations. No abnormal movements or posturing. Muscle strength of the major groups in the upper extremities is 5/5. Muscle strength of the major groups in the lower extremities is 5/5. REFLEXES: Deep tendon reflexes are symmetrical. No pathological reflexes. CEREBELLAR/COORDINATION: Finger to nose is normal bilaterally. GAIT/STATION: deferred. Labs/Diagnostic Data Labs Test 04/16/24 09:40 04/15/24 05:12 04/14/24 17:36 04/14/24 16:38 Range/Units White Blood Count 8.3 4.4-10.8 10^3/uL Red Blood Count 3.28 L 4.5-5.90 10^6/uL Hemoglobin 11.6 L 13.5-17.5 g/dL Hematocrit 34.3 L 41.0-53.0 % Mean Corpuscular Volume 104.5 H 80.0-100.0 fL Mean Corpuscular Hemoglobin 35.2 H 28.0-32.0 pg Mean Corpuscular Hemoglobin Concent 33.7 32.0-36.0 g/dL Red Cell Distribution Width 13.7 11.8-14.3 % Platelet Count 223 140-450 10^3/uL Mean Platelet Volume 8.7 6.9-10.8 fL Neutrophils (%) (Auto) 77.7 37.0-80.0 % Lymphocytes (%) (Auto) 11.0 10.0-50.0 % Monocytes (%) (Auto) 9.8 0.0-12.0 % Eosinophils (%) (Auto) 0.6 0.0-7.0 % Basophils (%) (Auto) 0.9 0.0-2.0 % Neutrophils # (Auto) 6.5 1.6-8.6 10 ^3/uL Lymphocytes # (Auto) 0.9 0.4-5.4 10 ^3/uL Monocytes # (Auto) 0.8 0-1.3 10 ^3/uL Eosinophils # (Auto) 0.1 0-0.8 10 ^3/uL Basophils # (Auto) 0.1 0-0.2 10 ^3/uL Nucleated Red Blood Cells 0.1 % Sodium Level 139 136-145 mmol/L Potassium Level 3.0 L 3.5-5.1 mmol/L Chloride Level 103 98-107 mmol/L Carbon Dioxide Level 31 20-31 mmol/L Anion Gap 5 5-15 Blood Urea Nitrogen 5 L 9-23 mg/dL Creatinine 0.55 L 0.700-1.30 mg/dL Glomerular Filtration Rate Calc 119 >90 mL/min BUN/Creatinine Ratio 9.1 L 10.0-20.0 Serum Glucose 129 H 74-106 mg/dL Calcium Level 8.5 L 8.7-10.4 mg/dL Total Bilirubin 2.2 H 0.2-1.0 mg/dL Aspartate Amino Transferase (AST) 80 H 13-40 U/L Alanine Aminotransferase (ALT) 33 7-40 U/L Alkaline Phosphatase 177 H 46-116 U/L Ammonia < 10 L 11-32 umol/L Total Protein 5.6 L 5.7-8.2 g/dL Albumin 3.3 3.2-4.8 g/dL Ferritin 519.0 H 22-322 ng/mL Vitamin B12 Level 1816 H 211-911 pg/mL Lactic Acid Level 0.8 0.4-2.0 mmol/L Magnesium Level 1.9 1.6-2.6 mg/dL Troponin I High Sensitivity 14 </=54 ng/L Blood Gas Specimen Type Arterial Blood Gas Sample Site Right radial Blood Gas Patient Temperature 37.0 Arterial Blood Date Drawn [id number] Arterial Blood pH 7.434 7.350-7.450 Arterial Blood Partial Pressure CO2 36.4 35.0-48.0 mmHg Arterial Blood Partial Pressure O2 86.2 83.0-108.0 mmHg Arterial Blood HCO3 23.8 21.0-28.0 mmol/L Arterial Blood Oxygen Saturation 95.2 94.0-98.0 % Arterial Blood Base Excess -0.1 -2.0-3.0 mmol/L Arterial Blood Oxyhemoglobin 94.1 94.0-98.0 % Arterial Blood Carboxyhemoglobin 0.9 0.5-1.5 % Arterial Blood Methemoglobin 0.3 0.0-1.5 % Gavin Test Yes Blood Gas Total Hemoglobin 12.20 L 13.5-17.5 g/dL Blood Gas Liter Flow 6.00 Blood Gas Modality Nasal cannula FiO2 % 44.0 Test 04/13/24 06:21 04/10/24 13:54 04/10/24 02:07 04/09/24 20:40 Range/Units Creatine Kinase 127 46-171 U/L Stool Occult Blood Positive Negative Stool Occult Blood Sample #3 Negative Urine Color Dark-yellow Yellow Urine Clarity Clear Clear Urine pH 6.5 5.0-9.0 Urine Specific [place] 1.030 1.001-1.035 Urine Protein 1+ H Negative Urine Ketones 2+ H Negative Urine Blood Trace H Negative /uL Urine Nitrite Negative Negative Urine Bilirubin 1+ Negative Urine Urobilinogen 8 H Negative mg/dL Urine Leukocyte Esterase Negative Negative /uL Urine RBC 1 0 - 3 /hpf Urine WBC 1 0 - 3 /hpf Urine Squamous Epithelial Cells None seen <5 /hpf Urine Bacteria None seen None Seen /hpf Urine Glucose Normal Normal mg/dL Urine Opiates Screen Neg NEGATIVE Urine Fentanyl Screen Pos NEGATIVE Urine Barbiturates Screen Neg NEGATIVE Urine Phencyclidine Screen Neg NEGATIVE Urine Amphetamines Screen Neg NEGATIVE Urine Benzodiazepines Screen Pos NEGATIVE Urine Cocaine Screen Neg NEGATIVE Urine Cannabinoids Screen Neg NEGATIVE Lipase 43 12-53 U/L Test 04/09/24 18:06 04/09/24 06:06 04/08/24 23:27 04/08/24 16:55 Range/Units Vancomycin Level Trough < 3.0 L 5-10 ug/mL Hemoglobin A1c 5.7 <5.7 % A1C Carcinoembryonic Antigen 13.65 <=5.0 ng/mL CA 19-9 Antigen 126 H 0-35 U/mL HIV (1&2) Antibody Negative Negative Plasma/Serum Blood Alcohol 7.6 <10 mg/dL Prothrombin Time 11.9 H 9.3-11.8 sec Prothrombin Time INR 1.14 0.9-1.15 Activated Partial Thromboplast Time 27.3 24.5-34.5 SEC Thyroid Stimulating Hormone (TSH) 5.27 H 0.55-4.78 uIU/mL Free Thyroxine (T4) Calculated 1.02 0.89-1.76 ng/dL Free Triiodothyronine (T3) pg/mL 2.77 2.3-4.2 pg/mL Hepatitis A IgM Antibody Negative Hepatitis B Surface Antigen Negative Negative Hepatitis B Core IgM Antibody Negative Negative Hepatitis C Antibody Negative Negative Test 04/08/24 16:13 Range/Units POC Glucose 139 H 70-106 mg/dl Microbiology Date/Time Source Procedure Growth Status 04/10/24 02:07 Voided Urine Urine Culture - Final Complete 04/08/24 18:28 Blood Blood Culture - Final NO GROWTH AFTER 5 DAYS OF INCUBATION. Complete Assessment General weakness, Secondary to metabolic encephalopathy Secondary to liver cirrhosis Rule out stroke Metabolic/hepatic encephalopathy Liver failure Alcoholism Lactic acidosis Macrocytic anemia Thrombocytopenia Depression Plan/Recommendation Monitoring Supportive treatment Telemetry EEG MR head Mirtazapine 15 mg HS Lactulose Thiamine 100 mg daily Folic acid 1 mg daily DVT prophylaxis/Lovenox GI prophylax/prophylax Tele psych on case More recommendation per clinical course This medical document was created using an electronic medical record system with [employer] dictation system. Although this document has been carefully reviewed, there may still be some phonetic and typographical errors. These areas are purely typographical due to imperfections of the software programs, and do not reflect any compromise in the patient's medical care. Plan discussed with: Spouse, Other LESLEE PERAZA MD Apr 16, 2024 19:46
[2024-04-16] MEDS: POTASSIUM EFFERVESENT TAB 25 MEQ PO ONE (20:02)
[2024-04-16] MEDS ORDERED: LORazepam 2MG/ML-1ML VIAL IV PRN (20:45)
[2024-04-16] MEDS: MIRTAZAPINE 30 MG TAB PO SCH (22:17)
[2024-04-17] VITALS (8 sets, daily range): BP systolic 89–161; BP diastolic 60–101; PULSE 85–118; RESP 18–22; TEMP 97.7–98.4; O2SAT 92–100
[2024-04-17] MEDS: LORazepam 2MG/ML-1ML VIAL IV PRN (03:18)
[2024-04-17 07:38] LABS: Anion Gap 5 (5-15); Carbon Dioxide 29 mmol/L (20-31); Chloride 104 mmol/L (98-107); Potassium 3.5 mmol/L (3.5-5.1); Sodium 138 mmol/L (136-145)
[2024-04-17 07:39] LABS: Calcium 8.7 mg/dL (8.7-10.4)
[2024-04-17 07:44] LABS: Glucose 101 mg/dL (74-106)
[2024-04-17 07:49] LABS: Blood Urea Nitrogen < 5 mg/dL (9-23)
[2024-04-17] MEDS: NIFEdipine ER 30 MG TAB PO SCH (10:00)
--- NOTE | 2024-04-17 10:55 | DVH ---
PROCEDURE: MRI BRAIN HEAD WO CONTRAST INDICATION: CVA EXAM DATE: 04/17/2024 10:21 AM COMPARISON: None TECHNIQUE: MRI of the brain without intravenous contrast. FINDINGS: Diffusion weighted images of the brain demonstrate no evidence of acute infarction. There is no evidence of acute intracranial hemorrhage, extra-axial collection, mass effect, midline s hift, herniation or hydrocephalus. The ventricles, sulci and cisterns appear age appropriate. The signal intensities of the brain parenchyma are within normal limits. There are no signal abnormalities on the susceptibility weighted sequences. The major vascular flow voids are present. Patchy opacification of the bilateral mastoid air cells right greater than left. The surrounding sof t tissues and osseous structures are unremarkable. IMPRESSION: 1. No evidence of acute infarction, intracranial hemorrhage, mass effect or hydrocephalus. Bilateral mastoid effusions right greater than left. HS:Y
--- NOTE | 2024-04-17 15:03 | DVHPNRES ---
Progress Note Date Seen: Apr 17, 2024 Resident Creating Document: BERTRAM CONTEH RESIDENT Has the PT tested + for MRSA If YES, has PT been informed?: No Medical Necessity Reason Pt with a Central, PICC or Fol: No Medical Necessity Reason Generalized weakness Subjective Review of Systems This is a 53-year-old male with history of alcohol abuse presented to the ED with a chief complaints of generalized weakness. According to the patient, he has been experiencing shaking chills, severe loss of appetite and severe generalized weakness for the past 2 weeks. Patient notes that he feels like he has no energy left at all and sustained a fall 2 days ago where he hit his head. He had 3 episodes of vomiting, no blood, mainly vomitus containing food particles. According the patient, he has been binge drinking for the past two weeks. Patient denied any recent travel out of the country, he is in monogamous relationship with his and he lives at home. Patient moved to [place] 8 months ago. And also notes weight loss in the last 4-6 weeks. White cell count was noted 12.9, lactic acid 5.1 AST level was 266, ALT was 46. At the time of my visit, patient passed a black tarry stool but he didn not mention any evidence of hematemesis. He was very unsteady but alert and oriented. Chest x-ray, CT head were grossly unremarkable ultrasound of the gallbladder revealed gallbladder sludge without convincing evidence of acute cholecystitis. CT chest/abdomen/pelvis showed Moderate hepatomegaly with diffuse fatty infiltration of the liver.Moderate distention of the gallbladder without evidence of acute cholecystitis. Mild centrilobular emphysematous changes in the lungs with subtle fibrotic bands in the inferior lingular segment and right lower lobe.No acute infiltrates or effusions Scattered diverticulosis of the sigmoid colon without evidence of diverticulitis. Omental fat-containing bilateral inguinal hernia, left more than right Borderline prostatomegaly with parenchymal calcifications.Subtle atherosclerotic calcification of the abdominal aorta and common iliac arteries, with normal contrast opacification and no aneurysm or dissection. PN: 04/10/2024 Patient is seen and examined this morning at bedside. He is alert oriented however his in [place] where he is hallucinating imagining family members with him or girlfriend and by the bedside. He has been question he is able to respond he is able to answer some questions but every now and then patient did into hallucination imagining what is not present. Overnight patient was noted to have tachycardic a low-potassium EKG was done which revealed sinus tachycardia on the EKG reading is showed QT prolongation of 527 however with irais calculation was 470. He is toxicology reports came back and patient was positive for fentanyl. Blood pressure is well under control at this moment and monitor. Patient's symptoms are likely due to alcohol withdrawal. Patient is also noted to have melena stool. Tumor marker CA19-9:126 H (0-35). GI is on the case and are considering MRCP. Chemistry improved today PN: 04/12/2024: patient is seen and examined by the bedside. Patient was sleeping at the time of my visit. There was a sitter in the room with the patient who mentioned to me that the night nurse said the patient seemed a lot more confused yesterday than he did not on previous days. And according to the nurse, when his family is around patient is orient, but later he was acting very confused. He is currently on lactulose and also he is on the withdrawal protocol. Ammonia level 25. K:2.6. mag 1.8.A CT of the head today did not reveal any abnormalities no bleeding noted no herniations noted no abnormalities found. Patient is currently on IV hydration creatinine kinase 283 not to the point of rhabdomyolysis we will keep monitoring. PN: 04/13/2024: patient is seen and examined by the bedside. He was wake,but thinks that he is home. He had to be oriented that he is in the hospital. He knows the name of his and children. There was a sitter in the room with the patient. No major events reported. Reduced dose of lactulose as Ammonia is 25. K:2.9. mag 1.8. A CT of the head today did not reveal any abnormalities no bleeding noted no herniations noted no abnormalities found. Patient is currently on IV hydration creatinine [id number]. He has a alvarenga's catheter. Urine is very concentrated,very orange in color. PN: 04/14/2024: Patient is seen and examined today. He seemed to a little altered and he has been in and out. Sometimes, he answers questions appropriately other times he does not. Patient was kept NPO this morning because he was scheduled for EGD today. We decreased patient's Librium from 3 times a day to 2 times a day labs this morning showed normal sodium level potassium level was decreased to 3.4 potassium was replaced. PT evaluation on board. This afternoon patient had EGD. S/p EGD patient had elevated heart rate of 110, respiratory rate of 37. I was called to the recovery room as patient had changes on ekg, tachypnea and tachycardia. Ordered stat ABG , chest xray and troponin, and furosemide 20 mg. Chest x-ray showed Left basilar atelectasis. Hypoexpanded lung ; ABG normal and troponin was 14. PN 122: patient is more alerted and oriented. He wants to go home. He saw a physical therapist today. But weak. He also seen by psychiatrist ( PROJECT ENG) today Who recommend Mirtazapine 15mg, 1 tab po before bedtime to improve mood, sleep and appetite. He received IV lasix 40 mg today. Over he is doing better. He also had a swallow evaluation and passed. No evidence of aspiration or concerns for aspiration. PN: 04/16/2024: Patient seen and examined by the bed side. I help patient get to the edge of the bed. He is awake, alert and oriented. Will d/c all medication today and have only ativan .5mg prn. Will continue PT assessment at least twice a day. I spoke to the and niece about the current state of the patient. Mentioned the possibility of a rehabilitation. I had mentioned that the patient will benefit from SNF for at least 2 weeks to regain his strength. They (Nathan and ) think the rehab will be a good idea. This is a 53-year-old male with history of alcohol abuse presented to the ED with a chief complaints of generalized weakness. According to the patient, he has been experiencing shaking chills, severe loss of appetite and severe generalized weakness for the past 2 weeks. Patient notes that he feels like he has no energy left at all and sustained a fall 2 days ago where he hit his head. He had 3 episodes of vomiting, no blood, mainly vomitus containing food particles. According the patient, he has been binge drinking for the past two weeks. Patient denied any recent travel out of the country, he is in monogamous relationship with his and he lives at home. Patient moved to [place] 8 months ago. And also notes weight loss in the last 4-6 weeks. White cell count was noted 12.9, lactic acid 5.1 AST level was 266, ALT was 46. At the time of my visit, patient passed a black tarry stool but he didn not mention any evidence of hematemesis. He was very unsteady but alert and oriented. Chest x-ray, CT head were grossly unremarkable ultrasound of the gallbladder revealed gallbladder sludge without convincing evidence of acute cholecystitis. CT chest/abdomen/pelvis showed Moderate hepatomegaly with diffuse fatty infiltration of the liver.Moderate distention of the gallbladder without evidence of acute cholecystitis. Mild centrilobular emphysematous changes in the lungs with subtle fibrotic bands in the inferior lingular segment and right lower lobe.No acute infiltrates or effusions Scattered diverticulosis of the sigmoid colon without evidence of diverticulitis. Omental fat-containing bilateral inguinal hernia, left more than right Borderline prostatomegaly with parenchymal calcifications.Subtle atherosclerotic calcification of the abdominal aorta and common iliac arteries, with normal contrast opacification and no aneurysm or dissection. PN: 04/10/2024 Patient is seen and examined this morning at bedside. He is alert oriented however his in [place] where he is hallucinating imagining family members with him or girlfriend and by the bedside. He has been question he is able to respond he is able to answer some questions but every now and then patient did into hallucination imagining what is not present. Overnight patient was noted to have tachycardic a low-potassium EKG was done which revealed sinus tachycardia on the EKG reading is showed QT prolongation of 527 however with irais calculation was 470. He is toxicology reports came back and patient was positive for fentanyl. Blood pressure is well under control at this moment and monitor. Patient's symptoms are likely due to alcohol withdrawal. Patient is also noted to have melena stool. Tumor marker CA19-9:126 H (0-35). GI is on the case and are considering MRCP. Chemistry improved today PN: 04/12/2024: patient is seen and examined by the bedside. Patient was sleeping at the time of my visit. There was a sitter in the room with the patient who mentioned to me that the night nurse said the patient seemed a lot more confused yesterday than he did not on previous days. And according to the nurse, when his family is around patient is orient, but later he was acting very confused. He is currently on lactulose and also he is on the withdrawal protocol. Ammonia level 25. K:2.6. mag 1.8.A CT of the head today did not reveal any abnormalities no bleeding noted no herniations noted no abnormalities found. Patient is currently on IV hydration creatinine kinase 283 not to the point of rhabdomyolysis we will keep monitoring. PN: 04/13/2024: patient is seen and examined by the bedside. He was wake,but thinks that he is home. He had to be oriented that he is in the hospital. He knows the name of his and children. There was a sitter in the room with the patient. No major events reported. Reduced dose of lactulose as Ammonia is 25. K:2.9. mag 1.8. A CT of the head today did not reveal any abnormalities no bleeding noted no herniations noted no abnormalities found. Patient is currently on IV hydration creatinine [id number]. He has a alvarenga's catheter. Urine is very concentrated,very orange in color. PN: 04/14/2024: Patient is seen and examined today. He seemed to a little altered and he has been in and out. Sometimes, he answers questions appropriately other times he does not. Patient was kept NPO this morning because he was scheduled for EGD today. We decreased patient's Librium from 3 times a day to 2 times a day labs this morning showed normal sodium level potassium level was decreased to 3.4 potassium was replaced. PT evaluation on board. This afternoon patient had EGD. S/p EGD patient had elevated heart rate of 110, respiratory rate of 37. I was called to the recovery room as patient had changes on ekg, tachypnea and tachycardia. Ordered stat ABG , chest xray and troponin, and furosemide 20 mg. Chest x-ray showed Left basilar atelectasis. Hypoexpanded lung ; ABG normal and troponin was 14. PN : patient is more alerted and oriented. He wants to go home. He saw a physical therapist today. But weak. He also seen by psychiatrist ( PROJECT ENG) today Who recommend Mirtazapine 15mg, 1 tab po before bedtime to improve mood, sleep and appetite. He received IV lasix 40 mg today. Over he is doing better. He also had a swallow evaluation and passed. No evidence of aspiration or concerns for aspiration. PN: 04/16/2024: Patient seen and examined by the bed side. I help patient get to the edge of the bed. He is awake, alert and oriented. Will d/c all medication today and have only ativan .5mg prn. Will continue PT assessment at least twice a day. I spoke to the and niece about the current state of the patient. Mentioned the possibility of a rehabilitation. I had mentioned that the patient will benefit from SNF for at least 2 weeks to regain his strength. They (Nathan and ) think the rehab will be a good idea. PN: 04/17/2024: Patient seen and examined by the bed side. Still weak. Working with PT. He is making small progress. Nothing big. Will discharge him home and they can continue PT at home. Today, patient is choking on his meal. Per protective services social worker, patient could not qualify for SNF for physicial therapy. Objective vital signs Vital Sign Date Time Temp Pulse Resp B/P (MAP) Pulse Ox O2 Delivery O2 Flow Rate FiO2 04/17/24 13:00 98.2 118 18 89/60 (70) 98 98.2 04/16/24 20:00 Nasal Cannula* 2 28 Total Intake and Output 04/16/24 04/16/24 04/17/24 15:00 23:00 07:00 Intake Total 720 ml 250 ml Output Total 600 ml Balance 720 ml -350 ml medications Current Medications Medications Dose Ordered Sig/Riccardo Route Start Time Stop Time Status Last Admin Dose Admin Labetalol HCl 5 mg Q2HPRN PRN IV 04/09/24 09:30 04/14/24 12:43 5 MG Ondansetron HCl 4 mg Q4HPRN PRN IV 04/10/24 12:30 Enoxaparin Sodium 40 mg DAILY SC 04/13/24 10:00 04/17/24 10:00 40 MG Lorazepam 0.5 mg Q4HP PRN IV 04/13/24 15:45 04/17/24 03:18 0.5 MG Thiamine HCl 100 mg DAILY PO 04/15/24 10:00 04/17/24 10:00 100 MG Folic Acid 1 mg DAILY PO 04/15/24 10:00 04/17/24 10:00 1 MG Sucralfate 1 gm QID@0600,1130,1700,2200 PO 04/14/24 17:00 04/17/24 06:35 1 GM Pantoprazole Sodium 40 mg BID IV 04/14/24 22:00 04/17/24 10:00 40 MG Magnesium Oxide 400 mg DAILY PO 04/15/24 10:00 04/17/24 10:00 400 MG Multivitamins 1 tab DAILY PO 04/15/24 10:00 04/17/24 10:00 1 TAB Mirtazapine 15 mg HS PO 04/16/24 22:00 04/16/24 22:17 15 MG Lorazepam 1 mg ONCE PRN IV 04/16/24 20:45 Nifedipine 30 mg DAILY PO 04/17/24 10:00 04/17/24 10:00 30 MG Examination General Appearance: Alert and oriented, No need for oxygen, weak and unable to get out of bed HEENT: Atraumatic, PERRLA, EOMI Respiratory: CTAB Cardiovascular: Regular rate, Normal S1, Normal S2 Abdominal: choking on his food, Normal bowel sounds (Abdominal tenderness to palpation), passed swallow evaluation Extremities: No clubbing, No cyanosis, No edema Skin: No rashes, No breakdown, Neuro: Normal speech, but altered Psych/Mental Status: Unable to assess laboratory and microbiology laboratory and microbiology Laboratory Tests 04/17/24 06:30 04/16/24 09:40 Test 04/17/24 06:30 Range/Units Serum Glucose 101 74-106 mg/dL Microbiology Date/Time Source Procedure Growth Status 04/10/24 02:07 Voided Urine Urine Culture - Final Complete 04/08/24 18:28 Blood Blood Culture - Final NO GROWTH AFTER 5 DAYS OF INCUBATION. Complete Problem List/Assessment/Plan Problem List/Assessment/Plan Assessment Alcohol withdrawal, CIWA score 19 on admission Metabolic encephalopathy Acute blood Anemia rule out GI Bleed Melena Macrocytic anemia Generalized weakness s/p mechanical fall 2 days ago Likely alcoholic Lactic acidosis Malnutrition Thrombocytopenia Hyponatremia Transaminitis Hyperbilirubinemia Hypertensive urgency hepatomegaly with diffuse fatty infiltration of the liver. Scattered diverticulosis without evidence of diverticulitis. Omental fat-containing bilateral inguinal hernia, left more than right. Hypokalemia hyperammonemia--> resolved Dehydration Depression Fentanyl abuse (UDS positive) Major depression ( new, 04/15/2024) Weak with unsteady gaits. Working with PT to regain strength Plan Decrease Ativan to .5mg PRN Monitor and replace electrolytes daily Monitor stool and hgb stable GI following Continue PT activities Clonidine 0.1 bid stop Maintenance fluid: stopped Furosemide Stopped 10 mg Chlordiazepoxide Stop Continue Banana bag (NS with multivitamins)stop after 3 days STOP Code status: full code Goal of care discussed for more than 25 minute Case and plan discussed with Dr. Horton Plan discussed with: Patient, Spouse My Orders My Orders Orders - BERTRAM CONTEH Procedure Category Date Status Time Mirtazapine Tablet PHA 04/16/24 In Process (Remeron Tablet) 22:00 Communication Order ORDERS 04/16/24 Transmitted 17:10 Nifedipine Er PHA 04/17/24 In Process (Procardia Xl 10:00 Pureed DIET 04/17/24 Transmitted Dinner Date of Service: Apr 17, 2024 Billing Provider: DEMI HORTON MD Common Visit Codes: [id number] INP/OBS CARE(HIGH) BERTRAM CONTEH Apr 17, 2024 15:03 DEMI HORTON MD Apr 22, 2024 20:40
--- NOTE | 2024-04-17 18:52 | DVHPN2 ---
Progress Note Date Seen: Apr 17, 2024 Resident Creating Document: BRANDO DUQUE RESIDENT Has the PT tested + for MRSA If YES, has PT been informed?: No Medical Necessity Reason Pt with a Central, PICC or Fol: No Subjective Patient reports: Feels better Changes from previous H/P or p: Changes Objective vital signs Vital Sign Date Time Temp Pulse Resp B/P (MAP) Pulse Ox O2 Delivery O2 Flow Rate FiO2 04/17/24 17:00 98.4 111 18 118/65 (82) 98 98.4 04/17/24 08:00 Room Air* 0 21 Total Intake and Output 04/16/24 04/16/24 04/17/24 15:00 23:00 07:00 Intake Total 720 ml 250 ml Output Total 600 ml Balance 720 ml -350 ml medications Current Medications Medications Dose Ordered Sig/Riccardo Route Start Time Stop Time Status Last Admin Dose Admin Labetalol HCl 5 mg Q2HPRN PRN IV 04/09/24 09:30 04/14/24 12:43 5 MG Ondansetron HCl 4 mg Q4HPRN PRN IV 04/10/24 12:30 Enoxaparin Sodium 40 mg DAILY SC 04/13/24 10:00 04/17/24 10:00 40 MG Lorazepam 0.5 mg Q4HP PRN IV 04/13/24 15:45 04/17/24 03:18 0.5 MG Thiamine HCl 100 mg DAILY PO 04/15/24 10:00 04/17/24 10:00 100 MG Folic Acid 1 mg DAILY PO 04/15/24 10:00 04/17/24 10:00 1 MG Sucralfate 1 gm QID@0600,1130,1700,2200 PO 04/14/24 17:00 04/17/24 17:00 1 GM Pantoprazole Sodium 40 mg BID IV 04/14/24 22:00 04/17/24 10:00 40 MG Magnesium Oxide 400 mg DAILY PO 04/15/24 10:00 04/17/24 10:00 400 MG Multivitamins 1 tab DAILY PO 04/15/24 10:00 04/17/24 10:00 1 TAB Mirtazapine 15 mg HS PO 04/16/24 22:00 04/16/24 22:17 15 MG Lorazepam 1 mg ONCE PRN IV 04/16/24 20:45 Nifedipine 30 mg DAILY PO 04/17/24 10:00 04/17/24 10:00 30 MG Examination GENERAL APPEARANCE: Well developed, well nourished, alert and cooperative, and appears to be in no acute distress. Improved. HEENT: WNL NECK: Neck supple, non-tender without lymphadenopathy, masses or thyromegaly. CARDIAC: Normal S1 and S2. No S3, S4 or murmurs. Rhythm is regular. There is no peripheral edema, cyanosis or pallor. Extremities are warm and well perfused. Capillary refill is less than 2 seconds. No carotid bruits. LUNGS: Clear to auscultation and percussion without rales, rhonchi, wheezing or diminished breath sounds. ABDOMEN: Positive bowel sounds. Soft, nondistended, nontender. No guarding or rebound. No masses. Mild epigastric tenderness. MSK: WNL NEUROLOGICAL: CN II-XII intact. Strength and sensation symmetric and intact throughout. Reflexes 2+ throughout. Cerebellar testing normal. SKIN: Skin normal color, texture and turgor with no lesions or eruptions. PSYCHIATRIC: Stable laboratory and microbiology Laboratory Tests 04/17/24 06:30 04/16/24 09:40 Test 04/17/24 06:30 Range/Units Serum Glucose 101 74-106 mg/dL Microbiology Date/Time Source Procedure Growth Status 04/10/24 02:07 Voided Urine Urine Culture - Final Complete 04/08/24 18:28 Blood Blood Culture - Final NO GROWTH AFTER 5 DAYS OF INCUBATION. Complete Labs and/or images reviewed: Labs reviewed by me, Image(s) reviewed by me Problem List/Assessment/Plan Problem List/Assessment/Plan Reasons for consultation: elevated tumor marker Hospitalization Summary: Mr. Lindsey, a 53-year-old male with a history of alcohol abuse presented with generalized weakness, shaking chills, severe loss of appetite, and vomiting after binge drinking for two weeks. He sustained a fall, resulting in a head injury, and reported weight loss over the past 4-6 weeks. His CIWA score increased to 19, and he is currently on CIWA and Librium protocols. Examination revealed hepatomegaly, gallbladder sludge, mild emphysematous changes in the lungs, and other findings. He experienced hallucinations, tachycardia, and low potassium levels, with an EKG showing QT prolongation. Toxicology was positive for fentanyl. His symptoms are likely due to alcohol withdrawal, and GI was consulted with elevated CA-19-9 , CEA and black tarrry stool, considering MRCP for further evaluation. Social history remarkable with about 30 pack year smoking and alcohol abuse. Prior to admission patient lived home with family and functioned independently and PCP is Dr. Burrows. Since then blood culture negative, H&H stable, ammonia unremarkable, FOBT positive, HIV and hepatitis negative, INR WNL, BUN is trending down patient is stable to is to 1 AST to ALT. In-hospital MRCP unremarkable. GI Assessment/impression: #Duodenal bulb ulcer #Gastroduodenitis # likely upper GI bleed, FOBT positive epigastric pain with alcohol abuse # MRI of the abdomen did not show any evidence of pancreatic mass # Alcoholic hepatitis # Gallbladder hydrops # Gallbladder sludge # hepatobiliary dilatation, alk-phos high, CK 180 # Moderate hepatomegaly with diffuse fatty liver. # Scattered diverticulosis of the sigmoid colon without evidence of diverticulitis. # Omental fat-containing bilateral inguinal hernia, nonincarcerated # mechanical fall 2 days ago likely due to alcohol intoxication # Transaminitis, typical to use to 1 pattern likely due to alcoholic hepatitis # Hyperbilirubinemia # CA 19-9, CEA significantly high but MRCP unremarkable. - # alcohol withdrawal # lactic acidosis # Mild centrilobular emphysematous changes in the lungs # Borderline prostatomegaly with parenchymal calcifications. # atherosclerotic calcification of the abdominal aorta and common iliac arteries # Degenerative disc disease at L5-S1 with vacuum disc phenomenon and moderate bilateral foraminal narrowing. # Hypertensive urgency, improved # recurrent Hypokalemia # high chance of refeeding syndrome # Macrocytic anemia # Thrombocytopenia GI Plan: # Pathology: Please follow up the EGD biopsy results. # Medications: H&H stable pantoprazole 40 mg po bid. carafate 1 g po bid. continue mitrazapine. # Diet: Alcohol abstinence, is most important in this patient. Additionally please avoid NSAIDs, caffeine, spicy, highly acidic and caustic diets. # Procedure: Consider elective colonoscopy for colon cancer screening when medically stabilized inpatient if still patient remains admitted vs outpatient. # Consider referral higher level of care in the future for a possible endoscopic ultrasound /EUS. Prognosis remains guarded. # serial abdominal examination and outpatient follow up with Dr. Cazares. Outpatient repeat CA 19 9. Thank you so much for the opportunity to consult on your patient. GI team will sign off the patient. In case of any questions or concerns please feel free to reach out. Case an action plan discussed with Dr. Ping Cazares. Complex care planning needed total 45 minutes of detailed discussion. The patient and caregiver team agreed to the plan. Plan discussed with: Patient, Other BRANDO DUQUE RESIDENT Apr 17, 2024 18:52
--- NOTE | 2024-04-17 21:46 | DVHPN2 ---
Progress Note - Dictate Date Seen: Apr 17, 2024 Has the PT tested + for MRSA If YES, has PT been informed?: No Medical Necessity Reason Pt with a Central, PICC or Fol: No Subjective Mr. Lindsey is a 53 years old right-handed gentleman with a history of anxiety, alcoholism, he was admitted on 04/08/2024 to the [facility] with a chief complaint of generalized weakness, low appetite. I have seen and examined the patient, I have discussed with his nurse, and sitter. He was very sleepy, but easily arousable, on waking up, he is oriented to person, place, he knows year and the month, he reports no pain or headache, or other deferred UDS, 04/10/2024: Fentanyl, benzo Plasma alcohol, 04/08/2024:7.6 Urinalysis, 04/10/2024: WBC: 1, urine leukocyte esterase: Negative WBC/HB/PLT/MCV, 04/16/24:8 0.3/11.6/223/104.5 BMP, 04/16/2024: Unremarkable HGB A1c, 03/2019 5:5.7 Lactic acid, 04/08/2024: 5.1, 5.9 TG/HDL/LDL/HDL, 04/09/2024: 4.3/193/38/229, 04/14/24: 3.1/100/34/179, 04/16/2024: 2.2/80/33/177 Hepatitis panel, 04/08/2024: Negative Ammonia, 04/10/2024: 45, 04/15/2024: 43 Vitamin B12, 04/15/24: 1816 CT head, 04/08/2024: No acute intracranial process. CT head, 04/12/2024: No evidence of acute intracranial abnormality MRI head, 04/17/2024: No evidence of acute infarction, intracranial hemorrhage, mass effect or hydrocephalus. Bilateral mastoid effusions right greater than left. vital signs Vital Sign Date Time Temp Pulse Resp B/P (MAP) Pulse Ox O2 Delivery O2 Flow Rate FiO2 04/17/24 21:00 98.4 102 18 116/80 (92) 92 98.4 04/17/24 08:00 Room Air* 0 21 Total Intake and Output 04/16/24 04/16/24 04/17/24 15:00 23:00 07:00 Intake Total 720 ml 250 ml Output Total 600 ml Balance 720 ml -350 ml medications Current Medications Medications Dose Ordered Sig/Riccardo Route Start Time Stop Time Status Last Admin Dose Admin Labetalol HCl 5 mg Q2HPRN PRN IV 04/09/24 09:30 04/14/24 12:43 5 MG Ondansetron HCl 4 mg Q4HPRN PRN IV 04/10/24 12:30 Enoxaparin Sodium 40 mg DAILY SC 04/13/24 10:00 04/17/24 10:00 40 MG Lorazepam 0.5 mg Q4HP PRN IV 04/13/24 15:45 04/17/24 03:18 0.5 MG Thiamine HCl 100 mg DAILY PO 04/15/24 10:00 04/17/24 10:00 100 MG Folic Acid 1 mg DAILY PO 04/15/24 10:00 04/17/24 10:00 1 MG Sucralfate 1 gm QID@0600,1130,1700,2200 PO 04/14/24 17:00 04/17/24 17:00 1 GM Pantoprazole Sodium 40 mg BID IV 04/14/24 22:00 04/17/24 21:34 40 MG Magnesium Oxide 400 mg DAILY PO 04/15/24 10:00 04/17/24 10:00 400 MG Multivitamins 1 tab DAILY PO 04/15/24 10:00 04/17/24 10:00 1 TAB Mirtazapine 15 mg HS PO 04/16/24 22:00 04/16/24 22:17 15 MG Lorazepam 1 mg ONCE PRN IV 04/16/24 20:45 Nifedipine 30 mg DAILY PO 04/17/24 10:00 04/17/24 10:00 30 MG objective General: the patient is well developed and nourished. No acute distress. MENTAL STATUS: Awake and alert. Oriented to person, place, SPEECH, LANGUAGE, HIGHER CORTICAL FUNCTION: no aphasia or dysathria. CRANIAL NERVES: Pupils are equal, round and reactive. EOMs full and conjugate. Mild bilateral gaze evoked nystagmus. Facial sensation intact in all three divisions bilaterally. Facial muscles symmetrical and strength intact. SENSATION: Sensation to touch and pinprick is normal. MOTOR: Normal tone in the upper and lower extremity. Normal muscle bulk. No fasciculations. No abnormal movements or posturing. He moves the arms and legs. REFLEXES: Deep tendon reflexes are symmetrical. No pathological reflexes. CEREBELLAR/COORDINATION: Finger to nose is normal bilaterally. GAIT/STATION: deferred. laboratory and microbiology Laboratory Tests 04/17/24 06:30 04/16/24 09:40 Test 04/17/24 06:30 Range/Units Serum Glucose 101 74-106 mg/dL Problem List General weakness, Secondary to metabolic encephalopathy Secondary to liver cirrhosis Rule out stroke Metabolic/hepatic encephalopathy Liver failure Alcoholism Lactic acidosis Macrocytic anemia Thrombocytopenia Depression Assessment/Plan Monitoring Supportive treatment Telemetry EEG Mirtazapine 15 mg HS Lactulose Thiamine 100 mg daily Folic acid 1 mg daily DVT prophylaxis/Lovenox GI prophylax/prophylax Tele psych on case More recommendation per clinical course This medical document was created using an electronic medical record system with [employer] dictation system. Although this document has been carefully reviewed, there may still be some phonetic and typographical errors. These areas are purely typographical due to imperfections of the software programs, and do not reflect any compromise in the patient's medical care. Prognosis poor Plan discussed with: Other Total Time (mins): 35 LESLEE PERAZA MD Apr 17, 2024 21:46
[2024-04-18] VITALS (9 sets, daily range): BP systolic 110–151; BP diastolic 74–99; PULSE 90–118; RESP 14–18; TEMP 98–98.6; O2SAT 92–99
[2024-04-18 10:51] LABS: Anion Gap 7 (5-15); Carbon Dioxide 28 mmol/L (20-31); Chloride 103 mmol/L (98-107); Sodium 138 mmol/L (136-145)
[2024-04-18 10:53] LABS: Calcium 8.8 mg/dL (8.7-10.4)
[2024-04-18 10:58] LABS: BUN/Creatinine Ratio 9.2 (10.0-20.0)
[2024-04-18 11:13] LABS: Blood Urea Nitrogen 6 mg/dL (9-23); Glucose 138 mg/dL (74-106); Potassium 3.1 mmol/L (3.5-5.1)
--- NOTE | 2024-04-18 14:56 | DVHPNRES ---
Progress Note Date Seen: Apr 18, 2024 Resident Creating Document: BERTRAM CONTEH RESIDENT Has the PT tested + for MRSA If YES, has PT been informed?: No Medical Necessity Reason Pt with a Central, PICC or Fol: No Medical Necessity Reason Generalized weakness PT on board Subjective Review of Systems This is a 53-year-old male with history of alcohol abuse presented to the ED with a chief complaints of generalized weakness. According to the patient, he has been experiencing shaking chills, severe loss of appetite and severe generalized weakness for the past 2 weeks. Patient notes that he feels like he has no energy left at all and sustained a fall 2 days ago where he hit his head. He had 3 episodes of vomiting, no blood, mainly vomitus containing food particles. According the patient, he has been binge drinking for the past two weeks. Patient denied any recent travel out of the country, he is in monogamous relationship with his and he lives at home. Patient moved to [place] 8 months ago. And also notes weight loss in the last 4-6 weeks. White cell count was noted 12.9, lactic acid 5.1 AST level was 266, ALT was 46. At the time of my visit, patient passed a black tarry stool but he didn not mention any evidence of hematemesis. He was very unsteady but alert and oriented. Chest x-ray, CT head were grossly unremarkable ultrasound of the gallbladder revealed gallbladder sludge without convincing evidence of acute cholecystitis. CT chest/abdomen/pelvis showed Moderate hepatomegaly with diffuse fatty infiltration of the liver.Moderate distention of the gallbladder without evidence of acute cholecystitis. Mild centrilobular emphysematous changes in the lungs with subtle fibrotic bands in the inferior lingular segment and right lower lobe.No acute infiltrates or effusions Scattered diverticulosis of the sigmoid colon without evidence of diverticulitis. Omental fat-containing bilateral inguinal hernia, left more than right Borderline prostatomegaly with parenchymal calcifications.Subtle atherosclerotic calcification of the abdominal aorta and common iliac arteries, with normal contrast opacification and no aneurysm or dissection. PN: 04/10/2024 Patient is seen and examined this morning at bedside. He is alert oriented however his in [place] where he is hallucinating imagining family members with him or girlfriend and by the bedside. He has been question he is able to respond he is able to answer some questions but every now and then patient did into hallucination imagining what is not present. Overnight patient was noted to have tachycardic a low-potassium EKG was done which revealed sinus tachycardia on the EKG reading is showed QT prolongation of 527 however with irais calculation was 470. He is toxicology reports came back and patient was positive for fentanyl. Blood pressure is well under control at this moment and monitor. Patient's symptoms are likely due to alcohol withdrawal. Patient is also noted to have melena stool. Tumor marker CA19-9:126 H (0-35). GI is on the case and are considering MRCP. Chemistry improved today PN: 04/12/2024: patient is seen and examined by the bedside. Patient was sleeping at the time of my visit. There was a sitter in the room with the patient who mentioned to me that the night nurse said the patient seemed a lot more confused yesterday than he did not on previous days. And according to the nurse, when his family is around patient is orient, but later he was acting very confused. He is currently on lactulose and also he is on the withdrawal protocol. Ammonia level 25. K:2.6. mag 1.8.A CT of the head today did not reveal any abnormalities no bleeding noted no herniations noted no abnormalities found. Patient is currently on IV hydration creatinine kinase 283 not to the point of rhabdomyolysis we will keep monitoring. PN: 04/13/2024: patient is seen and examined by the bedside. He was wake,but thinks that he is home. He had to be oriented that he is in the hospital. He knows the name of his and children. There was a sitter in the room with the patient. No major events reported. Reduced dose of lactulose as Ammonia is 25. K:2.9. mag 1.8. A CT of the head today did not reveal any abnormalities no bleeding noted no herniations noted no abnormalities found. Patient is currently on IV hydration creatinine [id number]. He has a alvarenga's catheter. Urine is very concentrated,very orange in color. PN: 04/14/2024: Patient is seen and examined today. He seemed to a little altered and he has been in and out. Sometimes, he answers questions appropriately other times he does not. Patient was kept NPO this morning because he was scheduled for EGD today. We decreased patient's Librium from 3 times a day to 2 times a day labs this morning showed normal sodium level potassium level was decreased to 3.4 potassium was replaced. PT evaluation on board. This afternoon patient had EGD. S/p EGD patient had elevated heart rate of 110, respiratory rate of 37. I was called to the recovery room as patient had changes on ekg, tachypnea and tachycardia. Ordered stat ABG , chest xray and troponin, and furosemide 20 mg. Chest x-ray showed Left basilar atelectasis. Hypoexpanded lung ; ABG normal and troponin was 14. PN 122: patient is more alerted and oriented. He wants to go home. He saw a physical therapist today. But weak. He also seen by psychiatrist ( [facility]) today Who recommend Mirtazapine 15mg, 1 tab po before bedtime to improve mood, sleep and appetite. He received IV lasix 40 mg today. Over he is doing better. He also had a swallow evaluation and passed. No evidence of aspiration or concerns for aspiration. PN: 04/16/2024: Patient seen and examined by the bed side. I help patient get to the edge of the bed. He is awake, alert and oriented. Will d/c all medication today and have only ativan .5mg prn. Will continue PT assessment at least twice a day. I spoke to the and niece about the current state of the patient. Mentioned the possibility of a rehabilitation. I had mentioned that the patient will benefit from SNF for at least 2 weeks to regain his strength. They (Nathan and ) think the rehab will be a good idea. This is a 53-year-old male with history of alcohol abuse presented to the ED with a chief complaints of generalized weakness. According to the patient, he has been experiencing shaking chills, severe loss of appetite and severe generalized weakness for the past 2 weeks. Patient notes that he feels like he has no energy left at all and sustained a fall 2 days ago where he hit his head. He had 3 episodes of vomiting, no blood, mainly vomitus containing food particles. According the patient, he has been binge drinking for the past two weeks. Patient denied any recent travel out of the country, he is in monogamous relationship with his and he lives at home. Patient moved to [place] 8 months ago. And also notes weight loss in the last 4-6 weeks. White cell count was noted 12.9, lactic acid 5.1 AST level was 266, ALT was 46. At the time of my visit, patient passed a black tarry stool but he didn not mention any evidence of hematemesis. He was very unsteady but alert and oriented. Chest x-ray, CT head were grossly unremarkable ultrasound of the gallbladder revealed gallbladder sludge without convincing evidence of acute cholecystitis. CT chest/abdomen/pelvis showed Moderate hepatomegaly with diffuse fatty infiltration of the liver.Moderate distention of the gallbladder without evidence of acute cholecystitis. Mild centrilobular emphysematous changes in the lungs with subtle fibrotic bands in the inferior lingular segment and right lower lobe.No acute infiltrates or effusions Scattered diverticulosis of the sigmoid colon without evidence of diverticulitis. Omental fat-containing bilateral inguinal hernia, left more than right Borderline prostatomegaly with parenchymal calcifications.Subtle atherosclerotic calcification of the abdominal aorta and common iliac arteries, with normal contrast opacification and no aneurysm or dissection. PN: 04/10/2024 Patient is seen and examined this morning at bedside. He is alert oriented however his [place] where he is hallucinating imagining family members with him or girlfriend and by the bedside. He has been question he is able to respond he is able to answer some questions but every now and then patient did into hallucination imagining what is not present. Overnight patient was noted to have tachycardic a low-potassium EKG was done which revealed sinus tachycardia on the EKG reading is showed QT prolongation of 527 however with irais calculation was 470. He is toxicology reports came back and patient was positive for fentanyl. Blood pressure is well under control at this moment and monitor. Patient's symptoms are likely due to alcohol withdrawal. Patient is also noted to have melena stool. Tumor marker CA19-9:126 H (0-35). GI is on the case and are considering MRCP. Chemistry improved today PN: 04/12/2024: patient is seen and examined by the bedside. Patient was sleeping at the time of my visit. There was a sitter in the room with the patient who mentioned to me that the night nurse said the patient seemed a lot more confused yesterday than he did not on previous days. And according to the nurse, when his family is around patient is orient, but later he was acting very confused. He is currently on lactulose and also he is on the withdrawal protocol. Ammonia level 25. K:2.6. mag 1.8.A CT of the head today did not reveal any abnormalities no bleeding noted no herniations noted no abnormalities found. Patient is currently on IV hydration creatinine kinase 283 not to the point of rhabdomyolysis we will keep monitoring. PN: 04/13/2024: patient is seen and examined by the bedside. He was wake,but thinks that he is home. He had to be oriented that he is in the hospital. He knows the name of his and children. There was a sitter in the room with the patient. No major events reported. Reduced dose of lactulose as Ammonia is 25. K:2.9. mag 1.8. A CT of the head today did not reveal any abnormalities no bleeding noted no herniations noted no abnormalities found. Patient is currently on IV hydration creatinine [id number]. He has a alvarenga's catheter. Urine is very concentrated,very orange in color. PN: 04/14/2024: Patient is seen and examined today. He seemed to a little altered and he has been in and out. Sometimes, he answers questions appropriately other times he does not. Patient was kept NPO this morning because he was scheduled for EGD today. We decreased patient's Librium from 3 times a day to 2 times a day labs this morning showed normal sodium level potassium level was decreased to 3.4 potassium was replaced. PT evaluation on board. This afternoon patient had EGD. S/p EGD patient had elevated heart rate of 110, respiratory rate of 37. I was called to the recovery room as patient had changes on ekg, tachypnea and tachycardia. Ordered stat ABG , chest xray and troponin, and furosemide 20 mg. Chest x-ray showed Left basilar atelectasis. Hypoexpanded lung ; ABG normal and troponin was 14. PN 122: patient is more alerted and oriented. He wants to go home. He saw a physical therapist today. But weak. He also seen by psychiatrist ( [facility]) today Who recommend Mirtazapine 15mg, 1 tab po before bedtime to improve mood, sleep and appetite. He received IV lasix 40 mg today. Over he is doing better. He also had a swallow evaluation and passed. No evidence of aspiration or concerns for aspiration. PN: 04/16/2024: Patient seen and examined by the bed side. I help patient get to the edge of the bed. He is awake, alert and oriented. Will d/c all medication today and have only ativan .5mg prn. Will continue PT assessment at least twice a day. I spoke to the and niece about the current state of the patient. Mentioned the possibility of a rehabilitation. I had mentioned that the patient will benefit from SNF for at least 2 weeks to regain his strength. They (Nathan and ) think the rehab will be a good idea. PN: 04/17/2024: Patient seen and examined by the bed side. Still weak. Working with PT. He is making small progress. Nothing big. Will discharge him home and they can continue PT at home. Today, patient is choking on his meal. Per rn social work, patient could not qualify for SNF for physical therapy. PN: 04/18/2024: Patient is seen and examined today at the bedside with his present. He was eating breakfast by himself. Patient is gradually gaining his strength; however, he is not fully able to take steps. Per the physical therapist's note from yesterday (04/17/2024), patient was only able to walk 4 ft. I have been in talk with the family today about getting in touch with their PCP for a possible SNF where the patient can get more one-on-one PT. mentioned that they are selling their house to move back to [place] where they can be close to family. But in the meantime, he needs PT. did mentioned that they able to take the patient home and help him get physical therapy or take him to [place] where he can get a physical therapy. also said they have a walker at home that he can use in the mean time. On clinical examination, his vitals are stable however, his blood work showed low potassium ( K: 3.1). Will correct potassium today and will re-checked potassium and magnesium in the morning. Objective vital signs Vital Sign Date Time Temp Pulse Resp B/P (MAP) Pulse Ox O2 Delivery O2 Flow Rate FiO2 04/18/24 13:00 98.5 101 16 127/81 (96) 94 98.5 04/18/24 08:00 Room Air* 0 21 Total Intake and Output 04/17/24 04/17/2404/18/25 15:00 23:00 07:00 Intake Total 100 ml 220 ml 100 ml Output Total 400 ml Balance 100 ml -180 ml 100 ml medications Current Medications Medications Dose Ordered Sig/Riccardo Route Start Time Stop Time Status Last Admin Dose Admin Labetalol HCl 5 mg Q2HPRN PRN IV 04/09/24 09:30 04/14/24 12:43 5 MG Ondansetron HCl 4 mg Q4HPRN PRN IV 04/10/24 12:30 Enoxaparin Sodium 40 mg DAILY SC 04/13/24 10:00 04/18/24 10:15 40 MG Lorazepam 0.5 mg Q4HP PRN IV 04/13/24 15:45 04/17/24 03:18 0.5 MG Thiamine HCl 100 mg DAILY PO 04/15/24 10:00 04/18/24 10:14 100 MG Folic Acid 1 mg DAILY PO 04/15/24 10:00 04/18/24 10:14 1 MG Sucralfate 1 gm QID@0600,1130,1700,2200 PO 04/14/24 17:00 04/18/24 11:30 1 GM Pantoprazole Sodium 40 mg BID IV 04/14/24 22:00 04/18/24 10:14 40 MG Magnesium Oxide 400 mg DAILY PO 04/15/24 10:00 04/18/24 10:14 400 MG Multivitamins 1 tab DAILY PO 04/15/24 10:00 04/18/24 10:14 1 TAB Mirtazapine 15 mg HS PO 04/16/24 22:00 04/16/24 22:17 15 MG Lorazepam 1 mg ONCE PRN IV 04/16/24 20:45 Nifedipine 30 mg DAILY PO 04/17/24 10:00 04/18/24 10:15 30 MG Potassium Bicarbonate 50 meq DAILY PO 04/19/24 10:00 UNV Examination General Appearance: Alert and oriented, No need for oxygen, weak, walked 4ft HEENT: Atraumatic, PERRLA, EOMI Respiratory: CTAB Cardiovascular: Regular rate, Normal S1, Normal S2 Abdominal: Non tender,Normal bowel sounds , passed swallow evaluation Extremities: No clubbing, No cyanosis, No edema Skin: No rashes, No breakdown, Neuro: Normal speech, but confused Psych/Mental Status: Normal mode and Affect laboratory and microbiology Laboratory Tests 04/18/24 09:46 04/16/24 09:40 Test 04/18/24 09:46 Range/Units Serum Glucose 138 H 74-106 mg/dL Microbiology Date/Time Source Procedure Growth Status 04/10/24 02:07 Voided Urine Urine Culture - Final Complete 04/08/24 18:28 Blood Blood Culture - Final NO GROWTH AFTER 5 DAYS OF INCUBATION. Complete Labs and/or images reviewed: Labs reviewed by me, Image(s) reviewed by me Problem List/Assessment/Plan Problem List/Assessment/Plan Assessment Alcohol withdrawal, CIWA score 19 on admission Metabolic encephalopathy Acute blood Anemia rule out GI Bleed Melena Macrocytic anemia Generalized weakness s/p mechanical fall 2 days ago Likely alcoholic Lactic acidosis Malnutrition Thrombocytopenia Hyponatremia Transaminitis Hyperbilirubinemia Hypertensive urgency hepatomegaly with diffuse fatty infiltration of the liver. Scattered diverticulosis without evidence of diverticulitis. Omental fat-containing bilateral inguinal hernia, left more than right. Persistent Hypokalemia hyperammonemia--> resolved Dehydration Depression Fentanyl abuse (UDS positive) Major depression ( new, 04/15/2024) Weak with unsteady gaits. Working with PT to regain strength Plan Decrease Ativan to .5mg PRN Monitor and replace electrolytes daily Monitor stool and hgb stable GI following Continue PT bid activities Monitor and correct the electrolytes For possibly discharge tomorrow. said they a walker at home Spoke with the case consultant today and they spoke with the patient and his and said that there is a possibility that the patient can go home with home health with PT involving [employer] so will fax information to [employer]. Clonidine 0.1 bid stop Maintenance fluid: stopped Furosemide: Stopped 10 mg Chlordiazepoxide: Stop Banana bag (NS with multivitamins); stop after 3 days Code status: full code Goal of care discussed for 20 minutes Case and plan discussed with Plan discussed with: Patient, Spouse, Other (RN) My Orders My Orders Orders - BERTRAM CONTEH Procedure Category Date Status Time Potassium Effervesent PHA 04/19/24 Logged Tab (Klor-Con/Ef) 10:00 Comprehensive LAB 04/19/24 Verified Metabolic Panel 04:00 Magnesium LAB 04/19/24 Verified 04:00 Addendum Addendum Addendum I was physically present for the pickett portions of the service provided to patient by THE RESIDENT. I have reviewed the documentation, discussed the case with resident and agree with the resident's documentation except as noted. Also the patient's clinical case was discussed with the patient's nurse. This medical document was created using an electronic medical record system with computerized dictation system. Although this document has been carefully reviewed, there might still be some phonetic and typographical errors. These areas are purely typographical due to imperfections of the software programs, and do not reflect any compromise in the patient's medical care. Late signature. Date of Service: Apr 18, 2024 Billing Provider: BANG LATHAM MD Common Visit Codes: 88164-[id number] INP/OBS CARE(HIGH) Secondary Visit Codes: 79622-MUFHCPLX CARE PLAN 30 MINUTES (20 minutes) BERTRAM CONTEH RESIDENT Apr 18, 2024 14:56 BANG LATHAM MD Apr 19, 2024 19:16
--- NOTE | 2024-04-18 23:35 | DVHEEG2 ---
Neurology EEG Procedural Note Procedural Note EXAM DATE: 04/16/24 REFERRING DOCTOR: Dr. Peraza TECHNIQUE: Eighteen channels of EEG, 2 channels of EOG, and 1 channel of EKG were recorded using the [employer] 10/20 system. CLINICAL DATA: The patient was referred for an EEG evaluation for the evidence of seizure disorder. MEDICATIONS: See the chart BACKGROUND ACTIVITY: While the patient was awake, the background activity consisted of well regulated 8-9 Hz rhythmic waveforms, symmetrically distributed over both posterior quadrants and was reactive to eye opening. ACTIVATION: Hyperventilation: Not done Photic Stimulation: Not done Sleep: Noticed IMPRESSION: This is a normal EEG. No focal, lateralized, or epileptiform features are noted. If clinically indicated to rule out a seizure disorder, recommend repeat EEG with sleep deprivation. The EKG channel showed a regular heart rate of 108 per minute [place] [address]. LESLEE PERAZA MD Apr 18, 2024 23:35
[2024-04-19] VITALS (11 sets, daily range): BP systolic 87–145; BP diastolic 58–91; PULSE 83–140; RESP 16–20; TEMP 97.9–98.4; O2SAT 92–98
[2024-04-19 07:39] LABS: Alanine Aminotransferase 28 U/L (7-40); Albumin 3.2 g/dL (3.2-4.8); Anion Gap 9 (5-15); Carbon Dioxide 21 mmol/L (20-31); Chloride 104 mmol/L (98-107); Glucose 88 mg/dL (74-106); Magnesium 2.1 mg/dL (1.6-2.6); Potassium 4.1 mmol/L (3.5-5.1)
[2024-04-19 07:40] LABS: Total Protein 5.9 g/dL (5.7-8.2)
[2024-04-19 07:44] LABS: BUN/Creatinine Ratio 9.6 (10.0-20.0); Blood Urea Nitrogen < 5 mg/dL (9-23); Sodium 134 mmol/L (136-145)
[2024-04-19 07:45] LABS: Alkaline Phosphatase 159 U/L (46-116); Aspartate Aminotransferase 88 U/L (13-40); Bilirubin, Total 1.9 mg/dL (0.2-1.0); Calcium 8.6 mg/dL (8.7-10.4)
[2024-04-19] MEDS: POTASSIUM EFFERVESENT TAB 25 MEQ PO SCH (10:16)
--- NOTE | 2024-04-19 10:30 | DVHPN2 ---
Subjective Still confused; did not share complaints Reviewed: Care Plan, H&P, Labs, Medications, Previous Orders, Radiology, Other (Consultations) Changes from previous H/P or p: No Changes Objective Vitals Vital Signs Date Time Temp Pulse Resp B/P (MAP) Pulse Ox O2 Delivery O2 Flow Rate FiO2 04/19/24 10:04 139/89 04/19/24 08:41 98.0 88 19 96 98.0 04/19/24 08:10 Room Air* 0 21 Intake/Output Intake and Output 04/19/24 07:00 Intake Total 795 ml Output Total 1025 ml Balance -230 ml Intake Oral 795 ml Output Urine Total 1025 ml # Voids 1 General Appearance: Alert, Cooperative, No acute distress, Other (Confused) HEENT: Atraumatic, PERRLA, EOMI, Mucous membr. moist/pink Neck: Supple Lungs: Clear to auscultation, Normal air movement Cardiovascular: Regular rate, Normal S1, Normal S2 Abdomen: Normal bowel sounds, Soft, No tenderness Neuro: Normal speech, Cranial nerves 3-12 NL, Other (Confused) Psych/Mental Status: Other (Confused) Medications Current Medications Medications Dose Ordered Sig/Riccardo Route Start Time Stop Time Status Last Admin Dose Admin Labetalol HCl 5 mg Q2HPRN PRN IV 04/09/24 09:30 04/14/24 12:43 5 MG Ondansetron HCl 4 mg Q4HPRN PRN IV 04/10/24 12:30 Enoxaparin Sodium 40 mg DAILY SC 04/13/24 10:00 04/19/24 10:03 40 MG Lorazepam 0.5 mg Q4HP PRN IV 04/13/24 15:45 04/17/24 03:18 0.5 MG Thiamine HCl 100 mg DAILY PO 04/15/24 10:00 04/19/24 10:04 100 MG Folic Acid 1 mg DAILY PO 04/15/24 10:00 04/19/24 10:04 1 MG Sucralfate 1 gm QID@0600,1130,1700,2200 PO 04/14/24 17:00 04/19/24 05:54 1 GM Pantoprazole Sodium 40 mg BID IV 04/14/24 22:00 04/19/24 10:04 40 MG Magnesium Oxide 400 mg DAILY PO 04/15/24 10:00 04/19/24 10:04 400 MG Multivitamins 1 tab DAILY PO 04/15/24 10:00 04/19/24 10:04 1 TAB Mirtazapine 15 mg HS PO 04/16/24 22:00 04/18/24 21:11 15 MG Lorazepam 1 mg ONCE PRN IV 04/16/24 20:45 Nifedipine 30 mg DAILY PO 04/17/24 10:00 04/19/24 10:04 30 MG Potassium Bicarbonate 50 meq DAILY PO 04/19/24 10:00 04/19/24 10:16 50 MEQ Laboratory Results Laboratory Tests 04/16/24 09:40 04/19/24 06:35 Chemistry Test 04/19/24 06:35 Albumin 3.2 g/dL (3.2-4.8) Calcium Level 8.6 mg/dL (8.7-10.4) L Magnesium Level 2.1 mg/dL (1.6-2.6) Total Protein 5.9 g/dL (5.7-8.2) LFT Test 04/19/24 06:35 Alanine Aminotransferase (ALT) 28 U/L (7-40) Alkaline Phosphatase 159 U/L (46-116) H Aspartate Amino Transferase (AST) 88 U/L (13-40) H Total Bilirubin 1.9 mg/dL (0.2-1.0) H Urinalysis Test 04/10/24 02:07 Urine Color Dark-yellow (Yellow) Urine Clarity Clear (Clear) Urine pH 6.5 (5.0-9.0) Urine Specific [place] 1.030 (1.001-1.035) Urine Protein 1+ (Negative) H Urine Ketones 2+ (Negative) H Urine Blood Trace /uL (Negative) H Urine Nitrite Negative (Negative) Urine Bilirubin 1+ (Negative) Urine Urobilinogen 8 mg/dL (Negative) H Urine Leukocyte Esterase Negative /uL (Negative) Urine RBC 1 /hpf (0 - 3) Urine WBC 1 /hpf (0 - 3) Urine Squamous Epithelial Cells None seen /hpf (<5) Urine Bacteria None seen /hpf (None Seen) Urine Glucose Normal mg/dL (Normal) Microbiology Microbiology Date/Time Source Procedure Growth Status 04/10/24 02:07 Voided Urine Urine Culture - Final Complete 04/08/24 18:28 Blood Blood Culture - Final NO GROWTH AFTER 5 DAYS OF INCUBATION. Complete Labs and/or images reviewed: Labs reviewed by me, Image(s) reviewed by me Assessment/Plan Assessment/Plan Covering Dr. Horton: #Severe alcohol use disorder with alcohol withdrawal; CIWA score 19 on admission #Acute hepatic/metabolic/toxic encephalopathy in the setting liver cirrhosis and alcohol withdrawal; still confused #Alcohol-induced macrocytic anemia #Suspected blood loss anemia in the setting duodenal bulb ulcer, and gastroduodenitis #Elevated CA 19-9 level #Elevated carcinoembryonic antigen (CEA) #Thrombocytopenia, elevated LFTs, hyperammonemia, and hyponatremia due to liver cirrhosis #Suspected sepsis with leukocytosis; finished course of IV antibiotics; leukocytosis resolved #Hypertensive urgency #Dehydration with orthostatic dizziness #Mechanical fall due to orthostatic dizziness and generalized weakness secondary to physical deconditioning #Physical deconditioning due to above CIWA score of 0 Continue thiamine and folic acid Continue pantoprazole and sucralfate GI is following Neurology is following Can not rule out GI malignancy at this time Pending approval of home health with home PT; Branding Machine Operator onboard Given normal saline IV bolus Continue to work with physical therapy as inpatient Adjust antihypertensive medications as indicated Fall precautions Reviewed the available imaging studies Reviewed EEG; normal study Reviewed blood work Reviewed cultures Continue monitoring Late Entry. This medical document was created using an electronic medical record system with computerized dictation system. Although this document has been carefully reviewed, there might still be some phonetic and typographical errors. These areas are purely typographical due to imperfections of the software programs, and do not reflect any compromise in the patient's medical care. Plan discussed with: Patient (As much as he could understand), Other (Nurse) My Orders Orders - BANG LATHAM MD Procedure Category Date Status Time * Branding Machine Operator CONS 04/18/24 Transmitted Consult Date of Service: Apr 19, 2024 Billing Provider: BANG LATHAM MD Common Visit Codes: [id number] INP/OBS CARE(HIGH) BANG LATHAM MD Apr 19, 2024 10:30
[2024-04-19] MEDS: SODIUM CHLORIDE 0.9% 500 ML IV ONE (17:07)
--- NOTE | 2024-04-19 21:18 | DVHPN2 ---
Progress Note - Dictate Date Seen: Apr 19, 2024 Has the PT tested + for MRSA If YES, has PT been informed?: No Medical Necessity Reason Pt with a Central, PICC or Fol: No Subjective No new complaints; patient is more awake and alert He had an episode of some shortness of breath and diaphoresis but that resolved No active GI bleeding is reported; patient is tolerating soft mechanical diet Patient has been under moderate financial stress lately because of personal issues vital signs Vital Sign Date Time Temp Pulse Resp B/P (MAP) Pulse Ox O2 Delivery O2 Flow Rate FiO2 04/19/24 16:28 98.4 100 20 126/80 (95) 94 98.4 04/19/24 08:10 Room Air* 0 21 Total Intake and Output 04/18/24 04/18/24 04/19/24 15:00 23:00 07:00 Intake Total 450 ml 345 ml Output Total 325 ml 700 ml Balance 125 ml -355 ml medications Current Medications Medications Dose Ordered Sig/Riccardo Route Start Time Stop Time Status Last Admin Dose Admin Labetalol HCl 5 mg Q2HPRN PRN IV 04/09/24 09:30 04/14/24 12:43 5 MG Ondansetron HCl 4 mg Q4HPRN PRN IV 04/10/24 12:30 Enoxaparin Sodium 40 mg DAILY SC 04/13/24 10:00 04/19/24 10:03 40 MG Lorazepam 0.5 mg Q4HP PRN IV 04/13/24 15:45 04/17/24 03:18 0.5 MG Thiamine HCl 100 mg DAILY PO 04/15/24 10:00 04/19/24 10:04 100 MG Folic Acid 1 mg DAILY PO 04/15/24 10:00 04/19/24 10:04 1 MG Sucralfate 1 gm QID@0600,1130,1700,2200 PO 04/14/24 17:00 04/19/24 16:28 1 GM Pantoprazole Sodium 40 mg BID IV 04/14/24 22:00 04/19/24 10:04 40 MG Magnesium Oxide 400 mg DAILY PO 04/15/24 10:00 04/19/24 10:04 400 MG Multivitamins 1 tab DAILY PO 04/15/24 10:00 04/19/24 10:04 1 TAB Mirtazapine 15 mg HS PO 04/16/24 22:00 04/18/24 21:11 15 MG Lorazepam 1 mg ONCE PRN IV 04/16/24 20:45 Nifedipine 30 mg DAILY PO 04/17/24 10:00 04/19/24 10:04 30 MG Potassium Bicarbonate 50 meq DAILY PO 04/19/24 10:00 04/19/24 10:16 50 MEQ objective General Appearance: Alert, Oriented X3, Cooperative, no distress HEENT: Atraumatic, PERRLA, EOMI Respiratory: Clear to auscultation, Normal air movement Cardiovascular: Regular rate, Normal S1, Normal S2 Abdominal: Normal bowel sounds nontender nondistended Extremities: No clubbing, No cyanosis, No edema Skin: No rashes, No breakdown Neuro: Normal speech, Other (Resting tremors noted in bilateral upper extremities) laboratory and microbiology Laboratory Tests 04/19/24 06:35 04/16/24 09:40 Test 04/19/24 06:35 Range/Units Serum Glucose 88 74-106 mg/dL Problems(with codes): (1) Elevated CA 19-9 level (2) Elevated carcinoembryonic antigen (CEA) (3) Duodenal bulb ulcer (4) Gastroduodenitis (5) Arthralgia (6) Sepsis Prognosis Plan Diet as tolerated Protonix 40 mg p.o. twice a day Carafate 1 g p.o. 4 times a day DC aspirin NSAIDs smoking alcohol I check for pathology but my gastric biopsy results are still pending No clear-cut evidence of malignancy noted on MRCP MRI but he has mild elevation in CA 19-9 and CEA level Consider colonoscopy test after bowel prep if the patient is agreeable Neurological workup has been negative so far including the EEG and the MRI brain Plan discussed with: Other (Prasad Song) STAR EDWARD MD Apr 19, 2024 21:18
--- NOTE | 2024-04-19 23:03 | DVHPN2 ---
Progress Note - Dictate Date Seen: Apr 19, 2024 Has the PT tested + for MRSA If YES, has PT been informed?: No Medical Necessity Reason Pt with a Central, PICC or Fol: No Subjective Mr. Lindsey is a 53 years old right-handed gentleman with a history of anxiety, alcoholism, he was admitted on 04/08/2024 to the [facility] with a chief complaint of generalized weakness, low appetite. I have seen and examined the patient, I have discussed with his nurse, and sitter. He is oriented to person, place, he knows year, no new complains UDS, 04/10/2024: Fentanyl, benzo Plasma alcohol, 04/08/2024:7.6 Urinalysis, 04/10/2024: WBC: 1, urine leukocyte esterase: Negative WBC/HB/PLT/MCV, 04/16/24:8 0.3/11.6/223/104.5, BMP, 04/16/2024: Unremarkable HGB A1c, 03/2019 5:5.7 Lactic acid, 04/08/2024: 5.1, 5.9 TBI/AST/ALT/AP,, 04/09/2024: 4.3/193/38/229, 04/14/24: 3.1/100/34/179, 04/16/2024: 2.2/80/33/177, 04/19/2024: 1.9/88/28/159 Hepatitis panel, 04/08/2024: Negative Ammonia, 04/10/2024: 45, 04/15/2024: 43 Vitamin B12, 04/15/24: 1816 EEG, 04/16/2024: Normal CT head, 04/08/2024: No acute intracranial process. CT head, 04/12/2024: No evidence of acute intracranial abnormality MRI head, 04/17/2024: No evidence of acute infarction, intracranial hemorrhage, mass effect or hydrocephalus. Bilateral mastoid effusions right greater than left. vital signs Vital Sign Date Time Temp Pulse Resp B/P (MAP) Pulse Ox O2 Delivery O2 Flow Rate FiO2 04/19/24 16:28 98.4 100 20 126/80 (95) 94 98.4 04/19/24 08:10 Room Air* 0 21 Total Intake and Output 1/04/18/24 04/19/24 15:00 23:00 07:00 Intake Total 450 ml 345 ml Output Total 325 ml 700 ml Balance 125 ml -355 ml medications Current Medications Medications Dose Ordered Sig/Riccardo Route Start Time Stop Time Status Last Admin Dose Admin Labetalol HCl 5 mg Q2HPRN PRN IV 04/09/24 09:30 04/14/24 12:43 5 MG Ondansetron HCl 4 mg Q4HPRN PRN IV 04/10/24 12:30 Enoxaparin Sodium 40 mg DAILY SC 04/13/24 10:00 04/19/24 10:03 40 MG Lorazepam 0.5 mg Q4HP PRN IV 04/13/24 15:45 04/17/24 03:18 0.5 MG Thiamine HCl 100 mg DAILY PO 04/15/24 10:00 04/19/24 10:04 100 MG Folic Acid 1 mg DAILY PO 04/15/24 10:00 04/19/24 10:04 1 MG Sucralfate 1 gm QID@0600,1130,1700,2200 PO 04/14/24 17:00 04/19/24 16:28 1 GM Pantoprazole Sodium 40 mg BID IV 04/14/24 22:00 04/19/24 10:04 40 MG Magnesium Oxide 400 mg DAILY PO 04/15/24 10:00 04/19/24 10:04 400 MG Multivitamins 1 tab DAILY PO 04/15/24 10:00 04/19/24 10:04 1 TAB Mirtazapine 15 mg HS PO 04/16/24 22:00 04/18/24 21:11 15 MG Lorazepam 1 mg ONCE PRN IV 04/16/24 20:45 Nifedipine 30 mg DAILY PO 04/17/24 10:00 04/19/24 10:04 30 MG Potassium Bicarbonate 50 meq DAILY PO 04/19/24 10:00 04/19/24 10:16 50 MEQ objective General: the patient is well developed and nourished. No acute distress. MENTAL STATUS: Awake and alert. Oriented to person, place, SPEECH, LANGUAGE, HIGHER CORTICAL FUNCTION: no aphasia or dysathria. CRANIAL NERVES: Pupils are equal, round and reactive. EOMs full and conjugate. Mild bilateral gaze evoked nystagmus. Facial sensation intact in all three divisions bilaterally. Facial muscles symmetrical and strength intact. SENSATION: Sensation to touch and pinprick is normal. MOTOR: Normal tone in the upper and lower extremity. Normal muscle bulk. No fasciculations. No abnormal movements or posturing. He moves the arms and legs. REFLEXES: Deep tendon reflexes are symmetrical. No pathological reflexes. CEREBELLAR/COORDINATION: Finger to nose is normal bilaterally. GAIT/STATION: deferred. laboratory and microbiology Laboratory Tests 04/19/24 06:35 04/16/24 09:40 Test 04/19/24 06:35 Range/Units Serum Glucose 88 74-106 mg/dL Problem List General weakness, Secondary to metabolic encephalopathy Secondary to liver cirrhosis Rule out stroke Metabolic/hepatic encephalopathy Liver failure Alcoholism Lactic acidosis Macrocytic anemia Thrombocytopenia Depression Assessment/Plan Monitoring Supportive treatment Telemetry Mirtazapine 15 mg HS Lactulose Thiamine 100 mg daily Folic acid 1 mg daily DVT prophylaxis/Lovenox GI prophylax/prophylax Tele psych on case More recommendation per clinical course This medical document was created using an electronic medical record system with [employer]ap[employer] dictation system. Although this document has been carefully reviewed, there may still be some phonetic and typographical errors. These areas are purely typographical due to imperfections of the software programs, and do not reflect any compromise in the patient's medical care. Prognosis poor Plan discussed with: Other LESLEE PERAZA MD Apr 19, 2024 23:03
[2024-04-20] VITALS (8 sets, daily range): BP systolic 125–173; BP diastolic 85–95; PULSE 61–115; RESP 17–19; TEMP 97.2–98.7; O2SAT 92–96
[2024-04-20 07:15] LABS: Basophils # (auto) 0.2 10 ^3/uL (0-0.2); Basophils % (auto) 1.3 % (0.0-2.0); Eosinophils # (auto) 0.1 10 ^3/uL (0-0.8); Hematocrit 37.4 % (41.0-53.0); Hemoglobin 12.7 g/dL (13.5-17.5); Nucleated Red Blood Cells % 0.1 %
[2024-04-20 07:18] LABS: Eosinophils % (auto) 0.8 % (0.0-7.0); Lymphocytes # (auto) 1.4 10 ^3/uL (0.4-5.4); Lymphocytes % (auto) 11.4 % (10.0-50.0); Mean Corpuscular Hgb Conc. 34.1 g/dL (32.0-36.0); Mean Corpuscular Volume 102.7 fL (80.0-100.0); Monocytes # (auto) 0.9 10 ^3/uL (0-1.3); Monocytes % (auto) 7.2 % (0.0-12.0); Neutrophils # (auto) 9.5 10 ^3/uL (1.6-8.6); Neutrophils % (auto) 79.3 % (37.0-80.0); Platelet Count (auto) 389 10^3/uL (140-450); Red Blood Cells 3.64 10^6/uL (4.5-5.90); Red Cell Distribution Width 13.7 % (11.8-14.3)
[2024-04-20 07:34] LABS: Alanine Aminotransferase 25 U/L (7-40); Albumin 3.5 g/dL (3.2-4.8); Anion Gap 9 (5-15); Calcium 8.9 mg/dL (8.7-10.4); Carbon Dioxide 25 mmol/L (20-31); Chloride 103 mmol/L (98-107); Glucose 102 mg/dL (74-106); Potassium 3.5 mmol/L (3.5-5.1); Sodium 137 mmol/L (136-145); Total Protein 6.2 g/dL (5.7-8.2)
[2024-04-20 07:43] LABS: Alkaline Phosphatase 168 U/L (46-116); Aspartate Aminotransferase 71 U/L (13-40); BUN/Creatinine Ratio 10.4 (10.0-20.0); Bilirubin, Total 2.1 mg/dL (0.2-1.0); Blood Urea Nitrogen < 5 mg/dL (9-23)
[2024-04-20] MEDS ORDERED: hydrALAZINE HCL 20 MG/ML VL IV PRN (08:30)
--- NOTE | 2024-04-20 17:55 | DVHPN2 ---
Progress Note Date Seen: Apr 20, 2024 Resident Creating Document: NEELIMA WHITE RESIDENT Has the PT tested + for MRSA If YES, has PT been informed?: No Medical Necessity Reason Pt with a Central, PICC or Fol: No Subjective Review of Systems Patient seen and examined at the bedside. Patient reports generalized weakness and says that he wants to go home. Objective vital signs Vital Sign Date Time Temp Pulse Resp B/P (MAP) Pulse Ox O2 Delivery O2 Flow Rate FiO2 04/20/24 17:00 97.7 109 17 135/95 (108) 92 97.7 04/20/24 08:05 Room Air* 0 21 Total Intake and Output 04/19/24 04/19/24 04/20/24 15:00 23:00 07:00 Intake Total 560 ml 240 ml Output Total 400 ml 550 ml Balance 160 ml -310 ml medications Current Medications Medications Dose Ordered Sig/Riccardo Route Start Time Stop Time Status Last Admin Dose Admin Ondansetron HCl 4 mg Q4HPRN PRN IV 04/10/24 12:30 Enoxaparin Sodium 40 mg DAILY SC 04/13/24 10:00 04/20/24 12:51 Lorazepam 0.5 mg Q4HP PRN IV 04/13/24 15:45 04/17/24 03:18 Thiamine HCl 100 mg DAILY PO 04/15/24 10:00 04/20/24 10:11 Folic Acid 1 mg DAILY PO 04/15/24 10:00 04/20/24 10:11 Sucralfate 1 gm QID@0600,1130,1700,2200 PO 04/14/24 17:00 04/20/24 12:03 Pantoprazole Sodium 40 mg BID IV 04/14/24 22:00 04/20/24 10:12 Magnesium Oxide 400 mg DAILY PO 04/15/24 10:00 04/20/24 10:11 Multivitamins 1 tab DAILY PO 04/15/24 10:00 04/20/24 10:12 Mirtazapine 15 mg HS PO 04/16/24 22:00 04/19/24 23:20 Lorazepam 1 mg ONCE PRN IV 04/16/24 20:45 Nifedipine 30 mg DAILY PO 04/17/24 10:00 04/20/24 10:12 Potassium Bicarbonate 50 meq DAILY PO 04/19/24 10:00 04/20/24 10:11 Hydralazine HCl 10 mg Q6HP PRN IV 04/20/24 08:30 Examination Patient lying in bed, in no acute distress General: Well-built, afebrile, palor, mucosae are moist Cardiovascular: Regular S1 and S2. No murmurs, gallops or rubs. No JVD elevation. No pedal edema Respiratory: Normal B/L air entry on room air. Clear lung sounds on auscultation Abdomen: Soft, nontender, nondistended, normoactive bowel sounds, no rebound tenderness, no organomegaly, no masses Genitourinary: Deferred MSK/skin: Mobilizes 4 limbs. Skin is dry and warm Neurological: No motor, no sensitive deficits, normal speech. Pupils are isocoric and reactive. Psych/Mental Status: A/Ox4 laboratory and microbiology Laboratory Tests 04/20/24 06:42 Test 04/20/24 06:42 Range/Units Serum Glucose 102 74-106 mg/dL Microbiology Date/Time Source Procedure Growth Status 04/10/24 02:07 Voided Urine Urine Culture - Final Complete 04/08/24 18:28 Blood Blood Culture - Final NO GROWTH AFTER 5 DAYS OF INCUBATION. Complete Labs and/or images reviewed: Labs reviewed by me, Image(s) reviewed by me Problem List/Assessment/Plan Problem List/Assessment/Plan Gastroduodenitis Probable upper GI bleeding 1-2 cm hiatal hernia with grade B esophagitis Probable early Varices Transaminitis secondary to Alcoholic hepatitis Gallbladder sludge Hepatic steatosis Diverticulosis of the sigmoid colon Bilateral inguinal hernia, incarcerated Elevated CA 19 9 Plan: EGD completed 04/14, follow up with biopsy results Continue pantoprazole 40 mg p.o. b.i.d., Carafate 1 g p.o. b.i.d. We will consider inpatient colonoscopy if the patient remains admitted versus outpatient colonoscopy Patient will require referral for ERCP/EUS Plan discussed with patient in which all questions have been answered Case discussed with Dr. Cazares Plan discussed with: Patient, Spouse (With the bedside) NEELIMA WHITE RESIDENT Apr 20, 2024 17:55
--- NOTE | 2024-04-20 19:18 | DVHPNRES ---
Progress Note Date Seen: Apr 20, 2024 Resident Creating Document: BERTRAM CONTEH RESIDENT Has the PT tested + for MRSA If YES, has PT been informed?: No Medical Necessity Reason Pt with a Central, PICC or Fol: No Medical Necessity Reason patient is not able to walk. it takes 2 people to get him from bed Subjective Review of Systems This is a 53-year-old male with history of alcohol abuse presented to the ED with a chief complaints of generalized weakness. According to the patient, he has been experiencing shaking chills, severe loss of appetite and severe generalized weakness for the past 2 weeks. Patient notes that he feels like he has no energy left at all and sustained a fall 2 days ago where he hit his head. He had 3 episodes of vomiting, no blood, mainly vomitus containing food particles. According the patient, he has been binge drinking for the past two weeks. Patient denied any recent travel out of the country, he is in monogamous relationship with his and he lives at home. Patient moved to [place] 8 months ago. And also notes weight loss in the last 4-6 weeks. White cell count was noted 12.9, lactic acid 5.1 AST level was 266, ALT was 46. At the time of my visit, patient passed a black tarry stool but he didn not mention any evidence of hematemesis. He was very unsteady but alert and oriented. Chest x-ray, CT head were grossly unremarkable ultrasound of the gallbladder revealed gallbladder sludge without convincing evidence of acute cholecystitis. CT chest/abdomen/pelvis showed Moderate hepatomegaly with diffuse fatty infiltration of the liver.Moderate distention of the gallbladder without evidence of acute cholecystitis. Mild centrilobular emphysematous changes in the lungs with subtle fibrotic bands in the inferior lingular segment and right lower lobe.No acute infiltrates or effusions Scattered diverticulosis of the sigmoid colon without evidence of diverticulitis. Omental fat-containing bilateral inguinal hernia, left more than right Borderline prostatomegaly with parenchymal calcifications.Subtle atherosclerotic calcification of the abdominal aorta and common iliac arteries, with normal contrast opacification and no aneurysm or dissection. PN: 04/10/2024 Patient is seen and examined this morning at bedside. He is alert oriented however his in [place] where he is hallucinating imagining family members with him or girlfriend and by the bedside. He has been question he is able to respond he is able to answer some questions but every now and then patient did into hallucination imagining what is not present. Overnight patient was noted to have tachycardic a low-potassium EKG was done which revealed sinus tachycardia on the EKG reading is showed QT prolongation of 527 however with irais calculation was 470. He is toxicology reports came back and patient was positive for fentanyl. Blood pressure is well under control at this moment and monitor. Patient's symptoms are likely due to alcohol withdrawal. Patient is also noted to have melena stool. Tumor marker CA19-9:126 H (0-35). GI is on the case and are considering MRCP. Chemistry improved today PN: 04/12/2024: patient is seen and examined by the bedside. Patient was sleeping at the time of my visit. There was a sitter in the room with the patient who mentioned to me that the night nurse said the patient seemed a lot more confused yesterday than he did not on previous days. And according to the nurse, when his family is around patient is orient, but later he was acting very confused. He is currently on lactulose and also he is on the withdrawal protocol. Ammonia level 25. K:2.6. mag 1.8.A CT of the head today did not reveal any abnormalities no bleeding noted no herniations noted no abnormalities found. Patient is currently on IV hydration creatinine kinase 283 not to the point of rhabdomyolysis we will keep monitoring. PN: 04/13/2024: patient is seen and examined by the bedside. He was wake,but thinks that he is home. He had to be oriented that he is in the hospital. He knows the name of his and children. There was a sitter in the room with the patient. No major events reported. Reduced dose of lactulose as Ammonia is 25. K:2.9. mag 1.8. A CT of the head today did not reveal any abnormalities no bleeding noted no herniations noted no abnormalities found. Patient is currently on IV hydration creatinine [id number]. He has a alvarenga's catheter. Urine is very concentrated,very orange in color. PN: 04/14/2024: Patient is seen and examined today. He seemed to a little altered and he has been in and out. Sometimes, he answers questions appropriately other times he does not. Patient was kept NPO this morning because he was scheduled for EGD today. We decreased patient's Librium from 3 times a day to 2 times a day labs this morning showed normal sodium level potassium level was decreased to 3.4 potassium was replaced. PT evaluation on board. This afternoon patient had EGD. S/p EGD patient had elevated heart rate of 110, respiratory rate of 37. I was called to the recovery room as patient had changes on ekg, tachypnea and tachycardia. Ordered stat ABG , chest xray and troponin, and furosemide 20 mg. Chest x-ray showed Left basilar atelectasis. Hypoexpanded lung ; ABG normal and troponin was 14. PN : patient is more alerted and oriented. He wants to go home. He saw a physical therapist today. But weak. He also seen by psychiatrist ( WEIGHER OPERATOR) today Who recommend Mirtazapine 15mg, 1 tab po before bedtime to improve mood, sleep and appetite. He received IV lasix 40 mg today. Over he is doing better. He also had a swallow evaluation and passed. No evidence of aspiration or concerns for aspiration. PN: 04/16/2024: Patient seen and examined by the bed side. I help patient get to the edge of the bed. He is awake, alert and oriented. Will d/c all medication today and have only ativan .5mg prn. Will continue PT assessment at least twice a day. I spoke to the and niece about the current state of the patient. Mentioned the possibility of a rehabilitation. I had mentioned that the patient will benefit from SNF for at least 2 weeks to regain his strength. They (Nathan and ) think the rehab will be a good idea. This is a 53-year-old male with history of alcohol abuse presented to the ED with a chief complaints of generalized weakness. According to the patient, he has been experiencing shaking chills, severe loss of appetite and severe generalized weakness for the past 2 weeks. Patient notes that he feels like he has no energy left at all and sustained a fall 2 days ago where he hit his head. He had 3 episodes of vomiting, no blood, mainly vomitus containing food particles. According the patient, he has been binge drinking for the past two weeks. Patient denied any recent travel out of the country, he is in monogamous relationship with his and he lives at home. Patient moved to [place] 8 months ago. And also notes weight loss in the last 4-6 weeks. White cell count was noted 12.9, lactic acid 5.1 AST level was 266, ALT was 46. At the time of my visit, patient passed a black tarry stool but he didn not mention any evidence of hematemesis. He was very unsteady but alert and oriented. Chest x-ray, CT head were grossly unremarkable ultrasound of the gallbladder revealed gallbladder sludge without convincing evidence of acute cholecystitis. CT chest/abdomen/pelvis showed Moderate hepatomegaly with diffuse fatty infiltration of the liver.Moderate distention of the gallbladder without evidence of acute cholecystitis. Mild centrilobular emphysematous changes in the lungs with subtle fibrotic bands in the inferior lingular segment and right lower lobe.No acute infiltrates or effusions Scattered diverticulosis of the sigmoid colon without evidence of diverticulitis. Omental fat-containing bilateral inguinal hernia, left more than right Borderline prostatomegaly with parenchymal calcifications.Subtle atherosclerotic calcification of the abdominal aorta and common iliac arteries, with normal contrast opacification and no aneurysm or dissection. PN: 04/10/2024 Patient is seen and examined this morning at bedside. He is alert oriented however his in [place] where he is hallucinating imagining family members with him or girlfriend and by the bedside. He has been question he is able to respond he is able to answer some questions but every now and then patient did into hallucination imagining what is not present. Overnight patient was noted to have tachycardic a low-potassium EKG was done which revealed sinus tachycardia on the EKG reading is showed QT prolongation of 527 however with irais calculation was 470. He is toxicology reports came back and patient was positive for fentanyl. Blood pressure is well under control at this moment and monitor. Patient's symptoms are likely due to alcohol withdrawal. Patient is also noted to have melena stool. Tumor marker CA19-9:126 H (0-35). GI is on the case and are considering MRCP. Chemistry improved today PN: 04/12/2024: patient is seen and examined by the bedside. Patient was sleeping at the time of my visit. There was a sitter in the room with the patient who mentioned to me that the night nurse said the patient seemed a lot more confused yesterday than he did not on previous days. And according to the nurse, when his family is around patient is orient, but later he was acting very confused. He is currently on lactulose and also he is on the withdrawal protocol. Ammonia level 25. K:2.6. mag 1.8.A CT of the head today did not reveal any abnormalities no bleeding noted no herniations noted no abnormalities found. Patient is currently on IV hydration creatinine kinase 283 not to the point of rhabdomyolysis we will keep monitoring. PN: 04/13/2024: patient is seen and examined by the bedside. He was wake,but thinks that he is home. He had to be oriented that he is in the hospital. He knows the name of his and children. There was a sitter in the room with the patient. No major events reported. Reduced dose of lactulose as Ammonia is 25. K:2.9. mag 1.8. A CT of the head today did not reveal any abnormalities no bleeding noted no herniations noted no abnormalities found. Patient is currently on IV hydration creatinine [id number]. He has a alvarenga's catheter. Urine is very concentrated,very orange in color. PN: 04/14/2024: Patient is seen and examined today. He seemed to a little altered and he has been in and out. Sometimes, he answers questions appropriately other times he does not. Patient was kept NPO this morning because he was scheduled for EGD today. We decreased patient's Librium from 3 times a day to 2 times a day labs this morning showed normal sodium level potassium level was decreased to 3.4 potassium was replaced. PT evaluation on board. This afternoon patient had EGD. S/p EGD patient had elevated heart rate of 110, respiratory rate of 37. I was called to the recovery room as patient had changes on ekg, tachypnea and tachycardia. Ordered stat ABG , chest xray and troponin, and furosemide 20 mg. Chest x-ray showed Left basilar atelectasis. Hypoexpanded lung ; ABG normal and troponin was 14. PN : patient is more alerted and oriented. He wants to go home. He saw a physical therapist today. But weak. He also seen by psychiatrist ( WEIGHER OPERATOR) today Who recommend Mirtazapine 15mg, 1 tab po before bedtime to improve mood, sleep and appetite. He received IV lasix 40 mg today. Over he is doing better. He also had a swallow evaluation and passed. No evidence of aspiration or concerns for aspiration. PN: 04/16/2024: Patient seen and examined by the bed side. I help patient get to the edge of the bed. He is awake, alert and oriented. Will d/c all medication today and have only ativan .5mg prn. Will continue PT assessment at least twice a day. I spoke to the and niece about the current state of the patient. Mentioned the possibility of a rehabilitation. I had mentioned that the patient will benefit from SNF for at least 2 weeks to regain his strength. They (Nathan and ) think the rehab will be a good idea. PN: 04/17/2024: Patient seen and examined by the bed side. Still weak. Working with PT. He is making small progress. Nothing big. Will discharge him home and they can continue PT at home. Today, patient is choking on his meal. Per social studies department chair, patient could not qualify for SNF for physical therapy. PN: 04/18/2024: Patient is seen and examined today at the bedside with his present. He was eating breakfast by himself. Patient is gradually gaining his strength; however, he is not fully able to take steps. Per the physical therapist's note from yesterday (04/17/2024), patient was only able to walk 4 ft. I have been in talk with the family today about getting in touch with their PCP for a possible SNF where the patient can get more one-on-one PT. mentioned that they are selling their house to move back to [place] where they can be close to family. But in the meantime, he needs PT. did mentioned that they able to take the patient home and help him get physical therapy or take him to [place] where he can get a physical therapy. also said they have a walker at home that he can use in the mean time. On clinical examination, his vitals are stable however, his blood work showed low potassium ( K: 3.1). Will correct potassium today and will re-checked potassium and magnesium in the morning. PN 04/20/2024: Patient seen and examine. He is slowly making some progress, but unable to get out of bed. it takes 2 people to get him out of bed. Continue PT. Vitals are stable and labs are within normal range. Objective vital signs Vital Sign Date Time Temp Pulse Resp B/P (MAP) Pulse Ox O2 Delivery O2 Flow Rate FiO2 04/20/24 17:00 97.7 109 17 135/95 (108) 92 97.7 04/20/24 08:05 Room Air* 0 21 Total Intake and Output 04/19/24 04/19/24 04/20/24 15:00 23:00 07:00 Intake Total 560 ml 240 ml Output Total 400 ml 550 ml Balance 160 ml -310 ml medications Current Medications Medications Dose Ordered Sig/Riccardo Route Start Time Stop Time Status Last Admin Dose Admin Ondansetron HCl 4 mg Q4HPRN PRN IV 04/10/24 12:30 Enoxaparin Sodium 40 mg DAILY SC 04/13/24 10:00 04/20/24 12:51 40 MG Lorazepam 0.5 mg Q4HP PRN IV 04/13/24 15:45 04/17/24 03:18 0.5 MG Thiamine HCl 100 mg DAILY PO 04/15/24 10:00 04/20/24 10:11 100 MG Folic Acid 1 mg DAILY PO 04/15/24 10:00 04/20/24 10:11 1 MG Sucralfate 1 gm QID@0600,1130,1700,2200 PO 04/14/24 17:00 04/20/24 12:03 1 GM Pantoprazole Sodium 40 mg BID IV 04/14/24 22:00 04/20/24 10:12 40 MG Magnesium Oxide 400 mg DAILY PO 04/15/24 10:00 04/20/24 10:11 400 MG Multivitamins 1 tab DAILY PO 04/15/24 10:00 04/20/24 10:12 1 TAB Mirtazapine 15 mg HS PO 04/16/24 22:00 04/19/24 23:20 15 MG Lorazepam 1 mg ONCE PRN IV 04/16/24 20:45 Nifedipine 30 mg DAILY PO 04/17/24 10:00 04/20/24 10:12 30 MG Potassium Bicarbonate 50 meq DAILY PO 04/19/24 10:00 04/20/24 10:11 50 MEQ Hydralazine HCl 10 mg Q6HP PRN IV 04/20/24 08:30 Examination General Appearance: Alert and oriented, No need for oxygen, weak, walked 8 ft HEENT: Atraumatic, PERRLA, EOMI Respiratory: CTAB Cardiovascular: Regular rate, Normal S1, Normal S2 Abdominal: Non tender,Normal bowel sounds , passed swallow evaluation Extremities: No clubbing, No cyanosis, No edema Skin: No rashes, No breakdown, Neuro: Normal speech, but confused Psych/Mental Status: Normal mode and Affect laboratory and microbiology Laboratory Tests 04/20/24 06:42 Test 04/20/24 06:42 Range/Units Serum Glucose 102 74-106 mg/dL Microbiology Date/Time Source Procedure Growth Status 04/10/24 02:07 Voided Urine Urine Culture - Final Complete 04/08/24 18:28 Blood Blood Culture - Final NO GROWTH AFTER 5 DAYS OF INCUBATION. Complete Problem List/Assessment/Plan Problem List/Assessment/Plan Assessment Alcohol withdrawal, CIWA score 19 on admission Metabolic encephalopathy Acute blood Anemia rule out GI Bleed Melena Macrocytic anemia Generalized weakness s/p mechanical fall 2 days ago Likely alcoholic Lactic acidosis Malnutrition Thrombocytopenia Hyponatremia Transaminitis Hyperbilirubinemia Hypertensive urgency hepatomegaly with diffuse fatty infiltration of the liver. Scattered diverticulosis without evidence of diverticulitis. Omental fat-containing bilateral inguinal hernia, left more than right. Persistent Hypokalemia hyperammonemia--> resolved Dehydration Depression Fentanyl abuse (UDS positive) Major depression ( new, 04/15/2024) Weak with unsteady gaits. Working with PT to regain strength Plan Decrease Ativan to .5mg PRN Monitor and replace electrolytes daily Monitor stool and hgb stable GI following Continue PT bid activities Monitor and correct the electrolytes For possibly discharge tomorrow. said they a walker at home Spoke with the behavioral health case manager today and they spoke with the patient and the 5 and said this is a possibility the patient can go home with home health with PT involving [facility] or something she fax information to [facility]. Clonidine 0.1 bid stop Maintenance fluid: stopped Furosemide Stopped 10 mg Chlordiazepoxide Stop Continue Banana bag (NS with multivitamins)stop after 3 days STOP Code status: full code Goal of care discussed for more than 25 minute Case and plan discussed with Plan discussed with: Patient My Orders My Orders Orders - BERTRAM CONTEH RESIDENT Procedure Category Date Status Time Hydralazine Injection PHA 04/20/24 In Process (Apresoline Inject 08:30 Date of Service: Apr 20, 2024 Billing Provider: BRIEN PENNY MD Common Visit Codes: [id number] INP/OBS CARE(HIGH) BERTRAM CONTEH RESIDENT Apr 20, 2024 19:18 BRIEN PENNY MD Apr 21, 2024 10:02
--- NOTE | 2024-04-20 21:38 | DVHPN2 ---
Progress Note - Dictate Date Seen: Apr 20, 2024 Has the PT tested + for MRSA If YES, has PT been informed?: No Medical Necessity Reason Pt with a Central, PICC or Fol: No Subjective Mr. Lindsey is a 53 years old right-handed gentleman with a history of anxiety, alcoholism, he was admitted on 04/08/2024 to the [facility] with a chief complaint of generalized weakness, low appetite. I have seen and examined the patient, I have discussed with his nurse, and sitter. He is oriented to person, place, he knows year with a little with a clue, no new complains, wants to go home UDS, 04/10/2024: Fentanyl, benzo Plasma alcohol, 04/08/2024:7.6 Urinalysis, 04/10/2024: WBC: 1, urine leukocyte esterase: Negative WBC/HB/PLT/MCV, 04/16/24:8 0.3/11.6/223/104.5, BMP, 04/16/2024: Unremarkable HGB A1c, 03/2019 5:5.7 Lactic acid, 04/08/2024: 5.1, 5.9 TBI/AST/ALT/AP,, 04/09/2024: 4.3/193/38/229, 04/14/24: 3.1/100/34/179, 04/16/2024: 2.2/80/33/177, 04/19/2024: 1.9/88/28/159 Hepatitis panel, 04/08/2024: Negative Ammonia, 04/10/2024: 45, 04/15/2024: 43 Vitamin B12, 04/15/24: 1816 EEG, 04/16/2024: Normal CT head, 04/08/2024: No acute intracranial process. CT head, 04/12/2024: No evidence of acute intracranial abnormality MRI head, 04/17/2024: No evidence of acute infarction, intracranial hemorrhage, mass effect or hydrocephalus. Bilateral mastoid effusions right greater than left. vital signs Vital Sign Date Time Temp Pulse Resp B/P (MAP) Pulse Ox O2 Delivery O2 Flow Rate FiO2 04/20/24 17:00 97.7 109 17 135/95 (108) 92 97.7 04/20/24 08:05 Room Air* 0 21 Total Intake and Output 04/19/24 04/19/24 04/20/24 15:00 23:00 07:00 Intake Total 560 ml 240 ml Output Total 400 ml 550 ml Balance 160 ml -310 ml medications Current Medications Medications Dose Ordered Sig/Riccardo Route Start Time Stop Time Status Last Admin Dose Admin Ondansetron HCl 4 mg Q4HPRN PRN IV 04/10/24 12:30 Enoxaparin Sodium 40 mg DAILY SC 04/13/24 10:00 04/20/24 12:51 40 MG Lorazepam 0.5 mg Q4HP PRN IV 04/13/24 15:45 04/17/24 03:18 0.5 MG Thiamine HCl 100 mg DAILY PO 04/15/24 10:00 04/20/24 10:11 100 MG Folic Acid 1 mg DAILY PO 04/15/24 10:00 04/20/24 10:11 1 MG Sucralfate 1 gm QID@0600,1130,1700,2200 PO 04/14/24 17:00 04/20/24 19:42 1 GM Pantoprazole Sodium 40 mg BID IV 04/14/24 22:00 04/20/24 10:12 40 MG Magnesium Oxide 400 mg DAILY PO 04/15/24 10:00 04/20/24 10:11 400 MG Multivitamins 1 tab DAILY PO 04/15/24 10:00 04/20/24 10:12 1 TAB Mirtazapine 15 mg HS PO 04/16/24 22:00 04/19/24 23:20 15 MG Lorazepam 1 mg ONCE PRN IV 04/16/24 20:45 Nifedipine 30 mg DAILY PO 04/17/24 10:00 04/20/24 10:12 30 MG Potassium Bicarbonate 50 meq DAILY PO 04/19/24 10:00 04/20/24 10:11 50 MEQ Hydralazine HCl 10 mg Q6HP PRN IV 04/20/24 08:30 objective General: the patient is well developed and nourished. No acute distress. MENTAL STATUS: Awake and alert. Oriented to person, place, SPEECH, LANGUAGE, HIGHER CORTICAL FUNCTION: no aphasia or dysathria. CRANIAL NERVES: Pupils are equal, round and reactive. EOMs full and conjugate. Mild bilateral gaze evoked nystagmus. Facial sensation intact in all three divisions bilaterally. Facial muscles symmetrical and strength intact. SENSATION: Sensation to touch and pinprick is normal. MOTOR: Normal tone in the upper and lower extremity. Normal muscle bulk. No fasciculations. No abnormal movements or posturing. He moves the arms and legs. REFLEXES: Deep tendon reflexes are symmetrical. No pathological reflexes. CEREBELLAR/COORDINATION: Finger to nose is normal bilaterally. GAIT/STATION: deferred. laboratory and microbiology Laboratory Tests 04/20/24 06:42 Test 04/20/24 06:42 Range/Units Serum Glucose 102 74-106 mg/dL Problem List General weakness, Secondary to metabolic encephalopathy Secondary to liver cirrhosis Rule out stroke Metabolic/hepatic encephalopathy Liver failure Alcoholism Lactic acidosis Macrocytic anemia Thrombocytopenia Depression Assessment/Plan Monitoring Supportive treatment Telemetry Mirtazapine 15 mg HS Lactulose Thiamine 100 mg daily Folic acid 1 mg daily DVT prophylaxis/Lovenox GI prophylax/prophylax Tele psych on case More recommendation per clinical course This medical document was created using an electronic medical record system with [employer] dictation system. Although this document has been carefully reviewed, there may still be some phonetic and typographical errors. These areas are purely typographical due to imperfections of the software programs, and do not reflect any compromise in the patient's medical care. Prognosis poor Plan discussed with: Other LESLEE PERAZA MD Apr 20, 2024 21:38
[2024-04-21 01:00] VITALS: BP 152/97; PULSE 100; RESP 19; TEMP 98.8; O2SAT 94
[2024-04-21 05:00] VITALS: BP 139/99; PULSE 106; RESP 20; TEMP 98.4; O2SAT 91
[2024-04-21 08:00] VITALS: PULSE 104
[2024-04-21 08:05] VITALS: PULSE 118; RESP 17; O2SAT 93
[2024-04-21 08:22] LABS: Eosinophils # (auto) 0.1 10 ^3/uL (0-0.8); Hemoglobin 12.5 g/dL (13.5-17.5); Red Cell Distribution Width 13.9 % (11.8-14.3)
[2024-04-21 08:25] LABS: Basophils # (auto) 0.2 10 ^3/uL (0-0.2); Basophils % (auto) 1.4 % (0.0-2.0); Hematocrit 37.3 % (41.0-53.0); Lymphocytes # (auto) 1.6 10 ^3/uL (0.4-5.4); Lymphocytes % (auto) 14.9 % (10.0-50.0); Mean Corpuscular Hemoglobin 34.7 pg (28.0-32.0); Mean Corpuscular Hgb Conc. 33.4 g/dL (32.0-36.0); Mean Corpuscular Volume 103.7 fL (80.0-100.0); Monocytes # (auto) 0.8 10 ^3/uL (0-1.3); Monocytes % (auto) 7.3 % (0.0-12.0); Neutrophils # (auto) 8.4 10 ^3/uL (1.6-8.6); Neutrophils % (auto) 75.4 % (37.0-80.0); Nucleated Red Blood Cells % 0.2 %; Platelet Count (auto) 410 10^3/uL (140-450); Red Blood Cells 3.59 10^6/uL (4.5-5.90); White Blood Cell 11.1 10^3/uL (4.4-10.8)
[2024-04-21 08:39] LABS: Chloride 103 mmol/L (98-107); Potassium 3.9 mmol/L (3.5-5.1); Sodium 136 mmol/L (136-145)
[2024-04-21 08:40] LABS: Anion Gap 5 (5-15); Calcium 8.9 mg/dL (8.7-10.4); Carbon Dioxide 28 mmol/L (20-31)
[2024-04-21 08:45] LABS: Glucose 91 mg/dL (74-106)
[2024-04-21 08:52] LABS: BUN/Creatinine Ratio 7.9 (10.0-20.0); Blood Urea Nitrogen < 5 mg/dL (9-23)
[2024-04-21 09:00] VITALS: BP 112/82; PULSE 112; RESP 19; TEMP 97.6; O2SAT 94
--- NOTE | 2024-04-21 10:07 | DVHDSRES ---
Discharge Summary Date of Admission Resident Creating Document: BERTRAM CONTEH RESIDENT Apr 08, 2024 at 22:26 Date of Discharge: Apr 21, 2024 Admitting Diagnosis alcohol withdrawal Labs/Diagnostic Data: PATIENT: YOBANY MORATAYAT: [id number] UNIT: [id number] : 1970 LOC: [facility] ROOM / BED: [facility]5T / B AGE / SEX: 53 / M ADM STATUS: ADM IN SERVICE 38 ORDERING PHYSICIAN: LESLEE LUIS MD PROCEDURE(s): MBHL - BRAIN HEAD WO CONTRAST REASON: CVA ORDER NUMBER(s): [id number], ACCESSION NUMBER(s): [id number] PROCEDURE: MRI BRAIN HEAD WO CONTRAST INDICATION: CVA EXAM DATE: 04/17/2024 10:21 AM COMPARISON: None TECHNIQUE: MRI of the brain without intravenous contrast. FINDINGS: Diffusion weighted images of the brain demonstrate no evidence of acute infarction. There is no evidence of acute intracranial hemorrhage, extra-axial collection, mass effect, midline shift, herniation or hydrocephalus. The ventricles, sulci and cisterns appear age appropriate. The signal intensities of the brain parenchyma are within normal limits. There are no signal abnormalities on the susceptibility weighted sequences. The major vascular flow voids are present. Patchy opacification of the bilateral mastoid air cells right greater than left. The surrounding soft tissues and osseous structures are unremarkable. IMPRESSION: 1. No evidence of acute infarction, intracranial hemorrhage, mass effect or hydrocephalus. Bilateral mastoid effusions right greater than left. HS:Y ATED BY: CALI FREIRE MD DICTATED DATE/TIME: 04/17/24 1052 PATIENT: YOBANY MORATAYAT: [id number] UNIT: [id number] : 1970 LOC: [facility] ROOM / BED: [facility]9T / A AGE / SEX: 53 / M ADM STATUS: ADM IN SERVICE 1526 ORDERING PHYSICIAN: STAR CAZARES MD PROCEDURE(s): MRABWWO - MRI ABDOMEN W AND WO REASON: F/U MRCP ORDER NUMBER(s): [id number], ACCESSION NUMBER(s): [id number] MRI ABDOMEN WITH CONTRAST CLINICAL HISTORY: F/U MRCP Technique: Multiplanar, multisequence MRI of the abdomen with and without contrast. 10/10 cc of gadovist contrast from a prefilled syringe was administered intravenously. Comparison: MRCP 04/10/2024 FINDINGS: The liver demonstrates signal dropout on the out of phase T1 images compatible with hepatic steatosis. There are scattered small hepatic cysts. There is no suspicious appearing hepatic lesion or focus of pathologic enhancement. There is redemonstration of a distended gallbladder. There is no obvious gallstone or pericholecystic fluid identified on MRI. There is no obvious gallbladder lesion. There is no evidence of biliary ductal dilatation. The spleen, pancreas, kidneys, adrenal glands appear within normal limits. The visualized small and large bowel loops demonstrate normal caliber. There is no free fluid or free air. There is scarring versus atelectasis in the bilateral lung bases, rddit-[id number]-xyrd-left. The osseous structures and soft tissues appear within normal limits. IMPRESSION: 1. Redemonstration of a distended gallbladder without obvious gallstone or pericholecystic fluid. There is no evidence of biliary ductal dilatation. 2. Hepatic steatosis. There are scattered small hepatic cysts. HS:Y ATED BY: BENSON COLE MD DICTATED DATE/TIME: 04/15/24 1019 PATIENT: YOBANY MORATAYAACCT: [id number] UNIT: [id number] : 1970 [facility]GE / SEX: 53 / M ADM STATUS: ADM IN SERVICE 1616 ORDERING PHYSICIAN: BERTRAM CONTEH RESIDENT PROCEDURE(s): CXR1 - CHEST XRAY 1 VIEW REASON: congested rule out aspiration ORDER NUMBER(s): [id number], ACCESSION NUMBER(s): [id number] XY CHEST XRAY 1 VIEW, HISTORY: congested rule out aspiration COMPARISON: XY CHEST XRAY 1 VIEW on DOS: 04/08/24 XY CHEST XRAY 1 VIEW on DOS: 04/08/24 TECHNICAL DATA: 1 view of the chest was obtained. FINDINGS: Lines and tubes: None Cardiomediastinal silhouette: normal Pulmonary vasculature: normal Lung expansion: low Lung airspace: Left basilar atelectasis. Lung interstitium: normal Pleura: normal Pneumothorax: no Bones: Unremarkable Other: no IMPRESSION: Left basilar atelectasis. Hypoexpanded lungs. ATED BY: MIGUEL ANGEL LUIS MD DICTATED DATE/TIME: 04/14/24 1658 PATIENT: YOBANY MORATAYAT: [id number] UNIT: [id number] : 1970 LOC: [facility] ROOM / BED: 0279T / A AGE / SEX: 53 / M ADM STATUS: ADM IN SERVICE 1010 ORDERING PHYSICIAN: BERTRAM CONTEH PROCEDURE(s): HWOCT - HEAD WITHOUT CONTRAST REASON: Confusion ORDER NUMBER(s): [id number], ACCESSION NUMBER(s): [id number] CT HEAD WITHOUT CONTRAST INDICATION: Confusion COMPARISON: CT HEAD WITHOUT CONTRAST on DOS: 04/08/24 TECHNIQUE: CT of the head without intravenous contrast. RADIATION DOSE: CTDIvol: 55.76 mGy, DLP: 893.86 mGy*cm FINDINGS: There is no evidence of acute intracranial hemorrhage, extra-axial collection, mass effect, midline shift, herniation or hydrocephalus. The jimenez-white differentiation is intact. Mild cerebral atrophy. The surrounding soft tissues and osseous structures are unremarkable. Mastoids are clear. Mucosal thickening in the left maxillary sinus. Otherwise trace scattered mucosal thickening in the paranasal sinuses. IMPRESSION: No evidence of acute intracranial abnormality. ATED BY: ZACARIAS PEREZ DO DICTATED DATE/TIME: 04/12/24 1100 PATIENT: YOBANY MORATAYAT: [id number] UNIT: [id number] : 1970 LOC: [facility] ROOM / BED: 1036-ER / A AGE / SEX: 53 / M ADM STATUS: ADM IN SERVICE 1221 ORDERING PHYSICIAN: STAR CAZARES MD PROCEDURE(s): MRCP - MRCP MRI REASON: elevated liver tests; elevated CA !9-9 ORDER NUMBER(s): [id number], ACCESSION NUMBER(s): [id number] MRI Abdomen, MRCP without IV Contrast Exam Date: 04/10/2024 02:29 PM Comparison: None History: elevated liver tests; elevated CA !9-9 Technique: Multisequence multiplanar MRI images were obtained of the abomen. MRCP including 3D SPACE, Radial 3D slabs and SPACE 3D MIP images Findings: Liver: Left hepatic cyst measuring up to 12 mm. Spleen: Unremarkable. Pancreas: The pancreas is normal in appearance without focal lesions. Gallbladder and ducts: Gallbladder is distended. No cholelithiasis identified. The cystic duct, right and left hepatic ducts, common hepatic duct, and common bile ducts are unremarkable. The pancreatic duct is within normal limits. Adrenal glands: Unremarkable. Kidneys: Normal enhancement without suspicious lesions or hydronephrosis. Visualized bowel: Grossly unremarkable. Vasculature: Unremarkable. Lymphadenopathy: No evidence for lymphadenopathy. Ascites: Absent. Musculoskeletal: Bone marrow signal is normal. IMPRESSION: 1. Gallbladder hydrops. No obstructing calculus identified. No significant intrahepatic or extrahepatic biliary dilation. No definite pancreatic mass. Hepatic cyst. If concern persists consider further evaluation with MRI of the abdomen with contrast. HS:Y. ATED BY: CALI FREIRE MD DICTATED DATE/TIME: 04/10/24 1517 PATIENT: YOBANY MORATAYAACCT: [id number] UNIT: [id number] : 1970 LOC: [facility] ROOM / BED: [address] [place] [address] / A AGE / SEX: 53 / M ADM STATUS: ADM IN SERVICE 25 ORDERING PHYSICIAN: SHARYN REN RESIDENT PROCEDURE(s): CAPIV - CT CHEST/AB/PL W CON- IV ONLY REASON: abdominal pain, weakness, weight loss ORDER NUMBER(s): [id number], ACCESSION NUMBER(s): [id number] Examination: CAPIV CLINICAL INDICATION: abdominal pain, weakness, weight loss. COMPARISON: None. CONTRAST USED: Intravenous. TECHNIQUE: Post-contrast CT study of the chest, abdomen, and pelvis was performed with 5 mm thin slices. Multiplanar reconstructions were obtained. The CT scan was performed using ALARA principles (As Low As Reasonably Achievable). FINDINGS: CT Chest: Thyroid Gland and Lower Neck: Appears unremarkable. Cardiac and Great Vessels: Normal cardiac size. No pericardial effusion. Normal contrast opacification of the thoracic aorta. No aneurysmal dilatation or dissection. Lungs and Pleura: Mild centrilobular emphysematous changes in the lung parenchyma. Subtle linear fibrotic band in the inferior lingular segment and posterobasal segment of the right lower lobe. No acute infiltrates or effusion. No lung nodules, pleural effusion, or pneumothorax. Mediastinum and Great Vessels: Trachea and mainstem bronchi appear normal. No significant mediastinal lymphadenopathy. No masses or vascular abnormalities. Chest Wall and Osseous Structures: No acute abnormalities. Degenerative changes in the thoracic spine, acromioclavicular, and glenohumeral joints. No focal osseous lesions. CT Abdomen: Liver: Moderate hepatomegaly with diffuse fatty infiltration. Gallbladder and Biliary System: Moderate distention of the gallbladder. No radiopaque calculus or gallbladder wall thickening to suggest cholecystitis. Common bile duct is not dilated. Pancreas: Appears unremarkable. Spleen: Normal in size and echotexture. No focal lesions. Adrenal Glands and Retroperitoneum: Both adrenal glands are normal in size and morphology. No significant retroperitoneal lymphadenopathy. Kidneys and Urinary System: No renal calculi or hydronephrosis. Bowel Loops: Contrast-filled small and large bowel loops are identified. Scattered diverticulosis of the sigmoid colon without evidence of diverticulitis. No bowel obstruction, ascites, or abnormal masses. Vessels: Subtle atherosclerotic calcification of the abdominal aorta and common iliac arteries. Normal contrast opacification of the abdominal aorta and visceral arteries. No evidence of aneurysmal dilatation or dissection. CT Pelvis: Appendix: Appears unremarkable. Colon: No significant abnormalities. Urinary Bladder: Appears unremarkable. Prostate and Seminal Vesicles: Borderline prostatomegaly with foci of parenchymal calcifications. Seminal vesicles appear unremarkable. Hernias: Omental fat-containing bilateral inguinal hernia, left more than right. Lymph Nodes and Soft Tissues: No significant pelvic lymphadenopathy. No abnormal fluid collection. Skeletal System: Degenerative reduction in disc space at L5-S1 with vacuum disc phenomenon and disc osteophyte complex bulge. Moderate narrowing of the bilateral neural foramina. IMPRESSION: 1. Moderate hepatomegaly with diffuse fatty infiltration of the liver. 2. Moderate distention of the gallbladder without evidence of acute cholecystitis. 3. Mild centrilobular emphysematous changes in the lungs with subtle fibrotic bands in the inferior lingular segment and right lower lobe. No acute infiltrates or effusions. 4. Scattered diverticulosis of the sigmoid colon without evidence of diverticulitis. 5. Omental fat-containing bilateral inguinal hernia, left more than right. 6. Borderline prostatomegaly with parenchymal calcifications. 7. Subtle atherosclerotic calcification of the abdominal aorta and common iliac arteries, with normal contrast opacification and no aneurysm or dissection. 8. Degenerative disc disease at L5-S1 with vacuum disc phenomenon and moderate bilateral foraminal narrowing. Electronically Signed 04/09/2024 03:41 [place] Gage ATED BY: DEYSI MILLARD MD DICTATED DATE/TIME: 04/09/24 0341 PATIENT: YOBANY MORATAYAT: [id number] UNIT: [id number] : 1970 LOC: ER ROOM / BED: / AGE / SEX: 53 / M ADM STATUS: REG ER SERVICE 1740 ORDERING PHYSICIAN: JORDYN CHILDERS RESIDENT PROCEDURE(s): ABDL - ABDOMEN LIMITED REASON: Transminitis ORDER NUMBER(s): [id number], ACCESSION NUMBER(s): [id number] EXAM: US Abdomen Limited, Right Upper Quadrant CLINICAL INDICATION: Transminitis TECHNIQUE: Real-time ultrasound of the right upper quadrant with image documentation. COMPARISON: None FINDINGS: LIVER: The liver measures up to 20.2 CM. Fatty liver. No intrahepatic bile duct dilation. GALLBLADDER: Gallbladder sludge. Negative Martin's sign was reported by the canvas goods maker. No gallstones. COMMON BILE DUCT: Unremarkable as visualized. No stones. No dilation. PANCREAS: Unremarkable as visualized. RIGHT KIDNEY: CBD not visualized. Next time right kidney measures up to 11 .1 cm. No stones. OTHER FINDINGS: . . IMPRESSION: Gallbladder sludge without convincing evidence of acute cholecystitis. HS:Y ATED BY: JOSE EDUARDO VICKERS MD DICTATED DATE/TIME: 04/08/24 1819 PATIENT: YOBANY MORATAYAT: [id number] UNIT: [id number] : 1970 LOC: ER ROOM / BED: / AGE / SEX: 53 / M ADM STATUS: REG ER SERVICE ORDERING PHYSICIAN: JORDYN CHILDERS RESIDENT PROCEDURE(s): HWOCT - HEAD WITHOUT CONTRAST REASON: Head trauma ORDER NUMBER(s): [id number], ACCESSION NUMBER(s): [id number] EXAM: CT HEAD WITHOUT CONTRAST HISTORY: Head trauma COMPARISON: None TECHNIQUE: Axial images of the head were obtained and reformatted in coronal and sagittal planes. All CT scans at this medical facility are performed using dose modulation techniques as appropriate to a performed exam including the following: Automated exposure control was utilized; adjustment of the MA and/or KV according to patient size; and use of iterative reconstruction technique. CT Dose: CTDI volume is 56.9 mGy. Dose-length product is 1121.41 mGy*cm FINDINGS: There is no evidence of acute intracranial hemorrhage, mass, mass effect midline shift. There is no hydrocephalus or extra-axial fluid collection. Jimenez-white matter differentiation is maintained. There is mucosal thickening in the left maxillary sinus. The remaining visualized paranasal sinuses and mastoid air cells are clear. The calvarium is intact. IMPRESSION: 1. No acute intracranial process. HS:Y ATED BY: BENSON COLE MD DICTATED DATE/TIME: 04/08/241654 PATIENT: YOBANY MORATAYAACCT: [id number] UNIT: [id number] : 1970 LOC: ER ROOM / BED: / AGE / SEX: 53 / M ADM STATUS: REG ER SERVICE 04 ORDERING PHYSICIAN: JORDYN CHILDERS PROCEDURE(s): CXR1 - CHEST XRAY 1 VIEW REASON: Unintentional weight loss ORDER NUMBER(s): [id number], ACCESSION NUMBER(s): [id number] EXAM: XY CHEST XRAY 1 VIEW TECHNIQUE: Single frontal chest radiograph CLINICAL HISTORY: Unintentional weight loss COMPARISON: None Findings/Impression: Frontal chest radiograph demonstrates no acute osseous or superficial soft tissue abnormalities. The trachea is midline. The cardiac silhouette and mediastinum are within normal limits. No pneumothorax, pleural effusions, or consolidations. ATED BY: DI JENKINS DATE/TIME: 04/08/24 6978 Laboratory Results Test 04/21/24 07:09 04/20/24 06:42 04/19/24 06:35 04/16/24 09:40 White Blood Count 11.1 10^3/uL (4.4-10.8) Red Blood Count 3.59 10^6/uL (4.5-5.90) Hemoglobin 12.5 g/dL (13.5-17.5) Hematocrit 37.3 % (41.0-53.0) Mean Corpuscular Volume 103.7 fL (80.0-100.0) Mean Corpuscular Hemoglobin 34.7 pg (28.0-32.0) Mean Corpuscular Hemoglobin Concent 33.4 g/dL (32.0-36.0) Red Cell Distribution Width 13.9 % (11.8-14.3) Platelet Count 410 10^3/uL (140-450) Mean Platelet Volume 8.8 fL (6.9-10.8) Neutrophils (%) (Auto) 75.4 % (37.0-80.0) Lymphocytes (%) (Auto) 14.9 % (10.0-50.0) Monocytes (%) (Auto) 7.3 % (0.0-12.0) Eosinophils (%) (Auto) 1.0 % (0.0-7.0) Basophils (%) (Auto) 1.4 % (0.0-2.0) Neutrophils # (Auto) 8.4 10 ^3/uL (1.6-8.6) Lymphocytes # (Auto) 1.6 10 ^3/uL (0.4-5.4) Monocytes # (Auto) 0.8 10 ^3/uL (0-1.3) Eosinophils # (Auto) 0.1 10 ^3/uL (0-0.8) Basophils # (Auto) 0.2 10 ^3/uL (0-0.2) Nucleated Red Blood Cells 0.2 % Sodium Level 136 mmol/L (136-145) Potassium Level 3.9 mmol/L (3.5-5.1) Chloride Level 103 mmol/L (98-107) Carbon Dioxide Level 28 mmol/L (20-31) Anion Gap 5 (5-15) Blood Urea Nitrogen < 5 mg/dL (9-23) Creatinine 0.63 mg/dL (0.700-1.30) Glomerular Filtration Rate Calc 114 mL/min (>90) BUN/Creatinine Ratio 7.9 (10.0-20.0) Serum Glucose 91 mg/dL (74-106) Calcium Level 8.9 mg/dL (8.7-10.4) Total Bilirubin 2.1 mg/dL (0.2-1.0) Aspartate Amino Transferase (AST) 71 U/L (13-40) Alanine Aminotransferase (ALT) 25 U/L (7-40) Alkaline Phosphatase 168 U/L (46-116) Total Protein 6.2 g/dL (5.7-8.2) Albumin 3.5 g/dL (3.2-4.8) Magnesium Level 2.1 mg/dL (1.6-2.6) Ammonia < 10 umol/L (11-32) Test 04/15/24 05:12 04/14/24 17:36 04/14/24 16:38 04/13/24 06:21 Ferritin 519.0 ng/mL (22-322) Vitamin B12 Level 1816 pg/mL (211-911) Lactic Acid Level 0.8 mmol/L (0.4-2.0) Troponin I High Sensitivity 14 ng/L (</=54) Blood Gas Specimen Type Arterial Blood Gas Sample Site Right radial Blood Gas Patient Temperature 37.0 Arterial Blood Date Drawn [id number] Arterial Blood pH 7.434 (7.350-7.450) Arterial Blood Partial Pressure CO2 36.4 mmHg (35.0-48.0) Arterial Blood Partial Pressure O2 86.2 mmHg (83.0-108.0) Arterial Blood HCO3 23.8 mmol/L (21.0-28.0) Arterial Blood Oxygen Saturation 95.2 % (94.0-98.0) Arterial Blood Base Excess -0.1 mmol/L (-2.0-3.0) Arterial Blood Oxyhemoglobin 94.1 % (94.0-98.0) Arterial Blood Carboxyhemoglobin 0.9 % (0.5-1.5) Arterial Blood Methemoglobin 0.3 % (0.0-1.5) Gavin Test Yes Blood Gas Total Hemoglobin 12.20 g/dL (13.5-17.5) Blood Gas Liter Flow 6.00 Blood Gas Modality Nasal cannula FiO2 % 44.0 Creatine Kinase 127 U/L (46-171) Test 04/10/24 13:54 04/10/24 02:07 04/09/24 20:40 04/09/24 18:06 Stool Occult Blood Positive (Negative) Stool Occult Blood Sample #3 (Negative) Urine Color Dark-yellow (Yellow) Urine Clarity Clear (Clear) Urine pH 6.5 (5.0-9.0) Urine Specific [place] 1.030 (1.001-1.035) Urine Protein 1+ (Negative) Urine Ketones 2+ (Negative) Urine Blood Trace /uL (Negative) Urine Nitrite Negative (Negative) Urine Bilirubin 1+ (Negative) Urine Urobilinogen 8 mg/dL (Negative) Urine Leukocyte Esterase Negative /uL (Negative) Urine RBC 1 /hpf (0 - 3) Urine WBC 1 /hpf (0 - 3) Urine Squamous Epithelial Cells None seen /hpf (<5) Urine Bacteria None seen /hpf (None Seen) Urine Glucose Normal mg/dL (Normal) Urine Opiates Screen Neg (NEGATIVE) Urine Fentanyl Screen Pos (NEGATIVE) Urine Barbiturates Screen Neg (NEGATIVE) Urine Phencyclidine Screen Neg (NEGATIVE) Urine Amphetamines Screen Neg (NEGATIVE) Urine Benzodiazepines Screen Pos (NEGATIVE) Urine Cocaine Screen Neg (NEGATIVE) Urine Cannabinoids Screen Neg (NEGATIVE) Lipase 43 U/L (12-53) Vancomycin Level Trough < 3.0 ug/mL (5-10) Test 04/09/24 06:06 04/08/24 23:27 04/08/24 16:55 04/08/24 16:13 Hemoglobin A1c 5.7 % A1C (<5.7) Carcinoembryonic Antigen 13.65 ng/mL (<=5.0) CA 19-9 Antigen 126 U/mL (0-35) HIV (1&2) Antibody Negative (Negative) Plasma/Serum Blood Alcohol 7.6 mg/dL (<10) Prothrombin Time 11.9 sec (9.3-11.8) Prothrombin Time INR 1.14 (0.9-1.15) Activated Partial Thromboplast Time 27.3 SEC (24.5-34.5) Thyroid Stimulating Hormone (TSH) 5.27 uIU/mL (0.55-4.78) Free Thyroxine (T4) Calculated 1.02 ng/dL (0.89-1.76) Free Triiodothyronine (T3) pg/mL 2.77 pg/mL (2.3-4.2) Hepatitis A IgM Antibody Negative Hepatitis B Surface Antigen Negative (Negative) Hepatitis B Core IgM Antibody Negative (Negative) Hepatitis C Antibody Negative (Negative) POC Glucose 139 mg/dl (70-106) Other Laboratory Tests 04/21/24 07:09 Brief Hx & Hospital Course: Brief HPI This is a 53-year-old male with history of alcohol abuse presented to the ED ON 04/08/2024 with a chief complaints of generalized weakness. According to the patient, he has been experiencing shaking chills, severe loss of appetite and severe generalized weakness for the past 2 weeks. Patient notes that he feels like he has no energy left at all and sustained a fall 2 days ago where he hit his head. He had 3 episodes of vomiting, no blood, mainly vomitus containing food particles. According the patient, he has been binge drinking for the past two weeks. Patient denied any recent travel out of the country, he is in monogamous relationship with his and he lives at home. Patient moved to [place] 8 months ago. And also notes weight loss in the last 4-6 weeks. White cell count was noted 12.9, lactic acid 5.1 AST level was 266, ALT was 46. At the time of my visit, patient passed a black tarry stool but he didn not mention any evidence of hematemesis. He was very unsteady but alert and oriented. Chest x-ray, CT head were grossly unremarkable ultrasound of the gallbladder revealed gallbladder sludge without convincing evidence of acute cholecystitis. CT chest/abdomen/pelvis showed Moderate hepatomegaly with diffuse fatty infiltration of the liver. Moderate distention of the gallbladder without evidence of acute cholecystitis. Mild centrilobular emphysematous changes in the lungs with subtle fibrotic bands in the inferior lingular segment and right lower lobe.No acute infiltrates or effusions Scattered diverticulosis of the sigmoid colon without evidence of diverticulitis. Omental fat-containing bilateral inguinal hernia, left more than right Borderline prostatomegaly with parenchymal calcifications.Subtle atherosclerotic calcification of the abdominal aorta and common iliac arteries, with normal contrast opacification and no aneurysm or dissection. Patient was initally stated statedon broad spectrum antibiotics Hospital course At the time of my visit, patient was in significant tremors, he was unable to hold steady although he was alter and oriented. Patient looked to be in alcohol withdrawal with a ciwa score of 19. Patient was started on banana bag, librium and ativan and IV fluid. daily electrolytes management and correction especially potassium. Patient was intilly improving then he became somewhat confused. Neurology was consulted and GI for his melena stools. MRI was negative. EGD hiatal hernia with grade B erosive esophagitis; Trace prominence of the distal esophageal veins; possible early varices; Qcotuugu-go-uvnmrz gastritis and gastropathy with superficial erosions and Severe duodenitis with multiple duodenal ulcers hyperemia erythema and erosions and mucosal edema. We decreased the dose of librium and gradually stopped. His mental status improved and he became alert and oriented. Prior to discharge, we recommended a PT evaluation. Patient was unable to get out of bed. He was very weak. it took two people to get patient out of bed. He gradually gained some strength. He was able to walk up to 8ft prior to discharge. Overall, patient has recovered from the alcohol withdrawal and currently working with the PT. Sending patient home with home health health with PT. Examination General Appearance: Alert and oriented, No need for oxygen, weak, walked 8 ft HEENT: Atraumatic, PERRLA, EOMI Respiratory: CTAB Cardiovascular: Regular rate, Normal S1, Normal S2 Abdominal: Non tender,Normal bowel sounds , passed swallow evaluation Extremities: No clubbing, No cyanosis, No edema Skin: No rashes, No breakdown, Neuro: Normal speech, but confused Psych/Mental Status: Normal mode and Affect Diagnoses Alcohol withdrawal, CIWA score 19 on admission Metabolic encephalopathy Acute blood Anemia rule out GI Bleed Melena Macrocytic anemia Generalized weakness s/p mechanical fall 2 days ago Likely alcoholic Lactic acidosis Moderate Malnutrition Thrombocytopenia likely due to alcohol abuse Hyponatremia Transaminitis due to alcohol abuse Hyperbilirubinemia Hypertensive urgency hepatomegaly with diffuse fatty infiltration of the liver. Scattered diverticulosis without evidence of diverticulitis. Omental fat-containing bilateral inguinal hernia, left more than right. Persistent Hypokalemia hyperammonemia--> resolved Dehydration Depression Fentanyl abuse (UDS positive) Major depression ( new, 04/15/2024) Weak with unsteady gaits. Working with PT to regain strength Discharge plan Home with Home health with PT continue home medication Repeat CMP in a week to check potassium level Continue antidepressant Get a PCP and follow up with him or her Case and discharge plan discussed with DR. Penny Consults/Reason for consult Neurology: Atered mental status GI: Anemia and Melena stool Operations or Procedures Patient: YOBANY MORATAYA Acct: [id number] : 1970 Loc: [facility] Age/Sex: 53/M Room: [facility] / Bed: A Attending Phy: BERTRAM CONTEH RESIDENT OPERATIVE REPORT ADDENDUM Name: YOBANY MORATAYA Acct: [id number] Addendum: STAR CAZARES MD on 04/14/24 @ 15:16 Spoke to nurse Mallika, patient was more awake and alert yesterday and he was tolerating a diet without any problems. He is more lethargic today _ ____ ADDENDUM ELECTRONICALLY SIGNED BY: Operative Report DATE OF OPERATION: 04/14/24 PROCEDURE: Upper Endoscopy with biopsy PREOPERATIVE INDICATION: The patient is a 53 -year-old male undergoing endoscopy for history of GI bleed POSTOPERATIVE DIAGNOSES: 1. 1-2 cm sliding-type hiatal hernia with grade B erosive esophagitis 2. Trace prominence of the distal esophageal veins; possible early varices 3. [id number] gastritis and gastropathy with superficial erosions 4. Severe duodenitis with multiple duodenal ulcers hyperemia erythema and erosions and mucosal edema PROCEDURE PERFORMED BY: Star Cazares GI NURSE: Jorge SCOPE: Olympus videoendoscope. ASA CLASS: 3. PREOPERATIVE MEDICATIONS: Mac sedation, PROCEDURE IN DETAIL: After obtaining an informed consent, the patient was placed on left lateral decubitus position. The patient was then sedated with the above medications. A bite block was placed between his teeth. The endoscope was then passed through the oropharynx, into the esophagus, and through the stomach and pylorus up to the second and third part of the duodenum. The endoscope was then withdrawn. Patient had a very abnormal appearing duodenum with hyperemia erythema and mucosal edema multiple superficial ulcerations and severe duodenitis Duodenal biopsies were obtained. Patient also had severe gastritis gastropathy hyperemia erythema and superficial erosions and gastric biopsies were obtained. On retroflexion the fundus and cardia were otherwise normal. The endoscope was then withdrawn into the distal esophagus Patient had a 1-2 cm sliding-type hiatal hernia with grade a to B erosive esophagitis and GE junction biopsies were obtained. Patient had trace prominence of the distal esophageal veins suspicious for possible early varices that flattened with insufflation Increase oozing was noted from biopsy sites. The patient tolerated the procedure well without difficulty. COMPLICATIONS : None SPECIMENS: Duodenal biopsies Gastric biopsies GE junction biopsies DISPOSITION: Transfer back to the floor Stable PLAN: 1. Await for biopsy result 2. Will place pt on Protonix 40 mg bid 3. Carafate 1 g p.o. 4 times a day 4. Swallow evaluation and advance diet as tolerated 5. Neurology consultation to evaluate for possibility of history of CVA neurological deficit as patient has moderate ALOC and weakness 6. Thiamine and folic acid supplementation as the patient has had a history of alcohol abuse in the past STAR CAZARES MD Apr 14, 2024 15:15 DICTATED BY:STAR CAZARES MD DICTATED DATE/TIME:04/14/24 1515 Condition at Discharge: Stable Final Diagnosis/Problems List Alcohol withdrawal, CIWA score 19 on admission Metabolic encephalopathy Acute blood Anemia rule out GI Bleed Melena Macrocytic anemia Generalized weakness s/p mechanical fall 2 days ago Likely alcoholic Lactic acidosis Malnutrition Thrombocytopenia Hyponatremia Transaminitis Hyperbilirubinemia Hypertensive urgency hepatomegaly with diffuse fatty infiltration of the liver. Scattered diverticulosis without evidence of diverticulitis. Omental fat-containing bilateral inguinal hernia, left more than right. Persistent Hypokalemia hyperammonemia--> resolved Dehydration Depression Fentanyl abuse (UDS positive) Major depression ( new, 04/15/2024) Weak with unsteady gaits. Working with PT to regain strength Discharge Disposition: Home with Health Services Discharge Instruct/Medications Diet: Regular Activity: No Restrictions, As Tolerated Follow Up/Referral: 7 days Medications: home medications potassium Discharge Statement: "Patient was advised to return to the ER or call 911 if any headaches, dizziness, shortness of breath, chest pain, abdominal pain, bleeding, fevers, or worsening of medical condition. Patient was counseled about treatment plan, medications, possible side effects, patientverbalized understanding. All questions were answered to the best of my ability. This discharge took greater then 30 minutes in planning, reviewing documentation, counseling the patient, and discussing with other team members." ASSESSMENT ASSESSMENT Assessment Alcohol withdrawal, CIWA score 19 on admission Metabolic encephalopathy Acute blood Anemia rule out GI Bleed Melena Macrocytic anemia Generalized weakness s/p mechanical fall 2 days ago Likely alcoholic Lactic acidosis Malnutrition Thrombocytopenia Hyponatremia Transaminitis Hyperbilirubinemia Hypertensive urgency hepatomegaly with diffuse fatty infiltration of the liver. Scattered diverticulosis without evidence of diverticulitis. Omental fat-containing bilateral inguinal hernia, left more than right. Persistent Hypokalemia hyperammonemia--> resolved Dehydration Depression Fentanyl abuse (UDS positive) Major depression ( new, 04/15/2024) Weak with unsteady gaits. Working with PT to regain strength Date of Service: Apr 21, 2024 Billing Provider: BRIEN PENNY MD Common Visit Codes: 41626-YYM/OBS DISCH DAY >30min BERTRAM CONTEH RESIDENT Apr 21, 2024 10:07 BRIEN PENNY MD Apr 22, 2024 10:22
[2024-04-21] MEDS ORDERED: PANT40TA2 PO (10:11)
[2024-04-21] MEDS ORDERED: FOLI-119 PO (10:11)
[2024-04-21] MEDS ORDERED: MIR30T PO (10:11)
[2024-04-21] MEDS ORDERED: NIFE1TAB31 PO (10:11)
[2024-04-21] MEDS ORDERED: MULTTAB99 PO (10:11)
[2024-04-21 10:39] VITALS: BP 112/82; PULSE 108; TEMP 36.4
--- NOTE | 2024-04-21 18:32 | DVHPN2 ---
Progress Note Date Seen: Apr 21, 2024 Resident Creating Document: NEELIMA WHITE RESIDENT Has the PT tested + for MRSA If YES, has PT been informed?: No Medical Necessity Reason Pt with a Central, PICC or Fol: No Subjective Review of Systems Patient seen and examined at the bedside. Reports no acute complaint Objective vital signs Vital Sign Date Time Temp Pulse Resp B/P (MAP) Pulse Ox O2 Delivery O2 Flow Rate FiO2 04/21/24 10:39 36.4 108 04/21/24 10:03 112/82 04/21/24 09:00 19 94 04/21/24 08:05 Room Air* 0 21 Total Intake and Output 04/20/24 04/20/24 04/21/24 15:00 23:00 07:00 Intake Total 480 ml 350 ml Output Total 350 ml 470 ml Balance 130 ml -120 ml Examination Patient lying in bed, in no acute distress General: Well-built, afebrile, palor, mucosae are moist Cardiovascular: Regular S1 and S2. No murmurs, gallops or rubs. No JVD elevation. No pedal edema Respiratory: Normal B/L air entry on room air. Clear lung sounds on auscultation Abdomen: Soft, nontender, nondistended, normoactive bowel sounds, no rebound tenderness, no organomegaly, no masses Genitourinary: Deferred MSK/skin: Mobilizes 4 limbs. Skin is dry and warm Neurological: No motor, no sensitive deficits, normal speech. Pupils are isocoric and reactive. Psych/Mental Status: A/Ox4 laboratory and microbiology Laboratory Tests 04/21/24 07:09 Test 04/21/24 07:09 Range/Units Serum Glucose 91 74-106 mg/dL Microbiology Date/Time Source Procedure Growth Status 04/10/24 02:07 Voided Urine Urine Culture - Final Complete 04/08/24 18:28 Blood Blood Culture - Final NO GROWTH AFTER 5 DAYS OF INCUBATION. Complete Labs and/or images reviewed: Labs reviewed by me, Image(s) reviewed by me Problem List/Assessment/Plan Problem List/Assessment/Plan Gastroduodenitis Probable upper GI bleeding 1-2 cm hiatal hernia with grade B esophagitis Probable early Varices Transaminitis secondary to Alcoholic hepatitis Gallbladder sludge Hepatic steatosis Diverticulosis of the sigmoid colon Bilateral inguinal hernia, incarcerated Elevated CA 19 9 EGD completed 04/14, follow up with biopsy results Plan: Advised outpatient workup with GI within 2-4 weeks, patient will need an outpatient colonoscopy. Patient agrees to the plan. She is able to be discharged. He was advised on continuing pantoprazole 40 mg p.o. b.i.d., Carafate 1 g p.o. b.i.d.. Plan discussed with patient in which all questions have been answered Case discussed with Dr. Cazares Plan discussed with: Patient NEELIMA WHITE RESIDENT Apr 21, 2024 18:32
== END 2024-04-21 12:19 | disposition home health service (06) | DRG 871 ==
LOC: ER 15:58 → OVERFLOW 22:26 → TELE-WESTW 04-10 22:38
PROVIDERS: ADMIT Internal Medicine; ATTEND Internal Medicine
PROC: 0DB68ZX Excision of Stomach, Via Natural or Artificial Opening Endoscopic, Diagnostic (ICD-10-PCS; 2024-04-14)
PROC: 0DB48ZX Excision of Esophagogastric Junction, Via Natural or Artificial Opening Endoscopic, Diagnostic (ICD-10-PCS; 2024-04-14)
PROC: 0DB98ZX Excision of Duodenum, Via Natural or Artificial Opening Endoscopic, Diagnostic (ICD-10-PCS; principal; 2024-04-14 14:45)
DX: A41.9 Sepsis, unspecified organism (principal); G93.41 Metabolic encephalopathy; K22.11 Ulcer of esophagus with bleeding; K26.4 Chronic or unspecified duodenal ulcer with hemorrhage; E87.1 Hypo-osmolality and hyponatremia; E87.20 Acidosis, unspecified; F10.239 Alcohol dependence with withdrawal, unspecified; K82.1 Hydrops of gallbladder; E72.20 Disorder of urea cycle metabolism, unspecified; E44.0 Moderate protein-calorie malnutrition; F17.210 Nicotine dependence, cigarettes, uncomplicated; D53.9 Nutritional anemia, unspecified; I16.0 Hypertensive urgency; D69.6 Thrombocytopenia, unspecified; E86.0 Dehydration; E87.6 Hypokalemia; K40.20 Bilateral inguinal hernia, without obstruction or gangrene, not specified as recurrent; K57.30 Diverticulosis of large intestine without perforation or abscess without bleeding; K76.0 Fatty (change of) liver, not elsewhere classified; K44.9 Diaphragmatic hernia without obstruction or gangrene; K26.9 Duodenal ulcer, unspecified as acute or chronic, without hemorrhage or perforation; K29.90 Gastroduodenitis, unspecified, without bleeding; K72.90 Hepatic failure, unspecified without coma; K74.60 Unspecified cirrhosis of liver; K76.82 Hepatic encephalopathy; K82.8 Other specified diseases of gallbladder; I70.0 Atherosclerosis of aorta; K70.10 Alcoholic hepatitis without ascites; F32.9 Major depressive disorder, single episode, unspecified; K31.9 Disease of stomach and duodenum, unspecified; K29.80 Duodenitis without bleeding; K29.70 Gastritis, unspecified, without bleeding; Z68.23 Body mass index [BMI] 23.0-23.9, adult; Z79.899 Other long term (current) drug therapy; Y90.9 Presence of alcohol in blood, level not specified
CPT/HCPCS: 36415; 36600; 70450; 70551; 71045; 71260; 74177; 74181; 74183; 76705; 80048; 80053; 80074; 80202; 80307; 80320; 81001; 82140; 82270; 82378; 82550; 82607; 82728; 82805; 82962; 83036; 83605; 83690; 83735; 84132; 84439; 84443; 84481; 84484; 85025; 85610; 85730; 86301; 86703; 87040; 87086; 92610; 93005; 95819; 97110; 97116; 97163; 97530; G0378; J2003; J2250; J2405; J2470; J3480; J3490